=== PATIENT | female | born 1955 | race Caucasian/White ===

== ENCOUNTER 2020-02-17 12:36 | Emergency (ER) | payer MEDICARE, MEDICAID, SELFPAY ==
[2020-02-17] VITALS (9 sets, daily range): BP systolic 110–133; BP diastolic 61–92; PULSE 60–88; RESP 16–20; TEMP 36.8–37.1; O2SAT 96–99; BMI 31.5
--- NOTE | 2020-02-17 13:12 | XR_ITS ---
EXAMINATION: XR LUMBOSACRAL SPINE CLINICAL INFORMATION: Pain, fall COMPARISON: Radiographs lumbar spine 08/10/2017 TECHNIQUE: Three views of the lumbosacral spine. FINDINGS: There is normal lumbar segmentation with 5 nonrib-bearing lumbar vertebrae of normal height and normal lumbar lordosis. There is no lumbar vertebral compression, spondylolisthesis, destructive process. Again, there are degenerative disc changes greatest at L5-S1 but also involving L4-L5 and mild degenerative changes L1-L3. No erosive changes. The SI joints and visualized sacrum are unremarkable. IMPRESSION: 1. Multilevel degenerative disc changes, greatest L5-S1. 2. No vertebral compression or visible fracture. No spondylolisthesis.
--- NOTE | 2020-02-17 13:12 | ED.FALL ---
HPI - Fall General Chief Complaint: Fall Stated Complaint: FALL OOB T-1, KAREN KNEE/BACK PAIN Time Seen by Provider: 02/17/20 13:09 Source: patient and EMS Mode of arrival: EMS Limitations: language barrier History of Present Illness HPI Narrative: 64 y/o female with history of chronic back pain on chronic opiates, DM, COPD, anxiety, HTN, and AMIRT who presents with back pain after she fell out of bed this morning. She reports frequent falls at home and chronic dizziness. She also reports recent loose stools. No N/V, fever, chills or abdominal pain. She has a history of several back surgeries and is on high dose opiates at home. She is moving all extremities on arrival and reporting bilateral knee pain and back pain. Related Data Allergies Allergy/AdvReac Type Severity Reaction Status Date / Time aspirin [Aspirin] Allergy Intermediate STOMACH Unverified 01/16/20 16:22 UPSET Iodinated Contrast Media Allergy Unknown ITCHING Unverified 01/16/20 16:22 [IV Dye, Iodine Containing Contrast ] shellfish derived Allergy Unknown UNKNOWN Unverified 01/16/20 16:22 [SHELLFISH DERIVED] aspirin Allergy Unknown Uncoded 02/26/18 00:00 contrast dye Allergy Unknown Uncoded 02/26/18 00:00 SEAFOOD Allergy Unknown UNKNOWN Uncoded 01/16/20 16:22 Review of Systems Review of Systems: Constitutional: No Fever, No Chills ENT/Mouth: No sore throat, No Rhinorrhea, No Swallowing Difficulty Eyes: No Eye Pain, No Swelling, No Redness Cardiovascular: No Chest Pain, No SOB, No Orthopnea, No Edema Respiratory: No Cough, No Sputum, No Wheezing, No dyspnea Gastrointestinal: No Nausea, No Vomiting, No Diarrhea, No abdominal Pain, No Hematochezia, No Melena Genitourinary: No Dysuria, No Urinary Frequency, No Hematuria Musculoskeletal: + joint pain, + Myalgias Skin: No Skin Lesions, No rash Neuro: No Weakness, No Numbness, + Dizziness, No Headache Psych: No Anxiety/Panic, No Depression Heme/Lymph: No Bruising, No Lymphadenopathy Endocrine: No Polyuria, No Polydipsia PMFSH Past Medical History Medical History (Updated 02/17/20 @ 16:34 by ALYSHA Sims) Acute arthritis Asthma Chronic back pain Diabetes Hx of intestinal obstruction Surgical History (Updated 02/17/20 @ 12:51 by Nayla New) Hx of cholecystectomy Hx of hysterectomy Social History Social History Alcohol intake: never Smoking Status: Current every day smoker Use of substances other than those prescribed or required for medical reasons: No Advance Directives: No Advance Directives Information Provided: Yes Physical Exam Vital Signs: Vital Signs: Vital Signs Temp Pulse Resp BP Pulse Ox 02/17/20 15:57 62 131/73 96 02/17/20 14:37 66 131/83 99 02/17/20 14:34 70 127/73 02/17/20 14:33 67 131/83 02/17/20 14:31 60 117/65 02/17/20 12:45 98.7 F 75 20 118/92 H 97 Body Mass Index 31.5 Appearance: Alert. Oriented X3. Appears to be in pain Eyes: Pupils equal, round and reactive to light. ENT: Pharynx normal. Neck: Normal inspection. Neck supple. CVS: Normal heart rate and rhythm. Pulses normal. Respiratory: No respiratory distress. Breath sounds normal. Abdomen: Soft and nontender. +BS x4 Back: diffuse tenderness of lumbar area, right sided thoracic soft tissue tenderness. Skin: Skin warm and dry. Normal skin color. Normal skin turgor. No rashes. Extremities: No lower extremity edema. moves all 4 extremities, diffuse tenderness of bilateral lower extremities Neuro: Oriented X 3. No motor deficit. No sensory deficit. Course Course Course Narrative: 64 y/o on chronic high dose opiates for chronic pain who is presenting after she fell out of bed this morning. She reports low back pain and knee pain. She is moving all extremities and neuro exam is intact. XR showed no traumatic injury to her lumbar spine. She was given 50 mcg IV fentanyl with some improvement in her pain. Orthostatics were negative but she reported dizziness with standing which is baseline for her. Getting IVF now. She has a history of frequent falls, last was 2 weeks ago at home in the kitchen without LOC or injury. She was not evaluated at that time. She lives at home with her who does nothing to take care of me. Will get PT consult and Case management consult for possible placement in STR. Patient agrees with plan. MDM - Fall Differential Diagnosis Differential diagnosis: Likely syncope, compression fracture and concussion without loss of consciousness Medical Records Attestation: I reviewed the patient's medical records. Lab Data Attestation: I reviewed the patient's lab results. Result diagrams: 02/17/20 14:02 02/17/20 14:02 Labs: Lab Results 02/17/20 02/17/20 02/17/20 Range/Units 14:02 14:02 14:02 WBC 10.3 (4.8-10.8) X10*3/uL RBC 5.34 (4.20-5.50) X10*6/uL Hgb 14.4 (12.0-16.0) g/dl Hct 45.6 (37-47) % MCV 85.4 (80-98) fL MCH 27.0 (27.0-33.0) pg MCHC 31.6 (31.0-35.0) g/dl RDW 13.4 (11.0-16.0) % Plt Count 306 (160-400) X10*3/uL MPV 10.2 (9.4-12.3) fL Immature Gran % (Auto) 0.3 (0.0-0.4) % Neut % (Auto) 73.7 H (45-73) % Lymph % (Auto) 20.0 (20-40) % [place] % (Auto) 5.5 (2-11) % Eos % (Auto) 0.2 (0-4) % Baso % (Auto) 0.3 (0-2) % Lymph # (Auto) 2.1 (1.2-4.9) X10*3/uL [place] # (Auto) 0.6 (0.1-1.2) X10*3/uL Eos # (Auto) 0.0 (0.0-0.4) X10*3/uL Baso # (Auto) 0.0 (0.0-0.2) X10*3/uL Abs Immat Gran (auto) 0.03 (0.00-0.03) X10*3/uL Absolute Neuts (auto) 7.6 (2.0-8.3) X10*3/uL Absolute Nucleated RBC 0.000 (0.0-0.012) X10*3/uL Nucleated RBC % (auto) 0.0 (0.0-0.2) /100WBC Sodium 143 (135-145) mmol/L Potassium 3.9 (3.3-5.1) mmol/l Chloride 105 (96-108) mmol/L Carbon Dioxide 30 H (22-29) mmol/L Anion Gap 12 (12-20) BUN 6 L (9-16) mg/dL Creatinine 0.73 (0.5-1.4) mg/dL Estim Creat Clear Calc 66.6 Estimated GFR > 60 Random Glucose 92 (60-115) mg/dL Calcium 9.2 (8.4-10.2) mg/dL Total Bilirubin 0.4 (0.0-1.0) mg/dL Direct Bilirubin 0.2 (0.0-0.5) mg/dL AST 13 (5-31) U/L ALT 12 (0-31) U/L Alkaline Phosphatase 109 (39-117) U/L Total Protein 6.5 (6.5-8.0) g/dL Albumin 4.0 (3.5-5.0) g/dL Urine Color Urine Appearance Urine pH (5.0-8.0) Ur Specific [place] (1.005-1.025) Urine Protein (NEG-TRACE) MG/DL Urine Glucose (UA) (NEG) MG/DL Urine Ketones (NEG) MG/DL Urine Blood (NEG) Urine Nitrite (NEG) Ur Leukocyte Esterase (NEG) Urine Opiates Screen (Not Detect) Ur Barbiturates Screen (Not Detect) Ur Phencyclidine Scrn (Not Detect) Ur Amphetamines Screen (Not Detect) U Benzodiazepines Scrn (Not Detect) Urine Cocaine Screen (Not Detect) U Marijuana (THC) Screen (Not Detect) Ethyl Alcohol < 10 mg/dL 02/17/20 02/17/20 Range/Units 16:06 16:06 WBC (4.8-10.8) X10*3/uL RBC (4.20-5.50) X10*6/uL Hgb (12.0-16.0) g/dl Hct (37-47) % MCV (80-98) fL MCH (27.0-33.0) pg MCHC (31.0-35.0) g/dl RDW (11.0-16.0) % Plt Count (160-400) X10*3/uL MPV (9.4-12.3) fL Immature Gran % (Auto) (0.0-0.4) % Neut % (Auto) (45-73) % Lymph % (Auto) (20-40) % [place] % (Auto) (2-11) % Eos % (Auto) (0-4) % Baso % (Auto) (0-2) % Lymph # (Auto) (1.2-4.9) X10*3/uL [place] # (Auto) (0.1-1.2) X10*3/uL Eos # (Auto) (0.0-0.4) X10*3/uL Baso # (Auto) (0.0-0.2) X10*3/uL Abs Immat Gran (auto) (0.00-0.03) X10*3/uL Absolute Neuts (auto) (2.0-8.3) X10*3/uL Absolute Nucleated RBC (0.0-0.012) X10*3/uL Nucleated RBC % (auto) (0.0-0.2) /100WBC Sodium (135-145) mmol/L Potassium (3.3-5.1) mmol/l Chloride (96-108) mmol/L Carbon Dioxide (22-29) mmol/L Anion Gap (12-20) BUN (9-16) mg/dL Creatinine (0.5-1.4) mg/dL Estim Creat Clear Calc Estimated GFR Random Glucose (60-115) mg/dL Calcium (8.4-10.2) mg/dL Total Bilirubin (0.0-1.0) mg/dL Direct Bilirubin (0.0-0.5) mg/dL AST (5-31) U/L ALT (0-31) U/L Alkaline Phosphatase (39-117) U/L Total Protein (6.5-8.0) g/dL Albumin (3.5-5.0) g/dL Urine Color YELLOW Urine Appearance CLEAR Urine pH 7.0 (5.0-8.0) Ur Specific [place] 1.015 (1.005-1.025) Urine Protein NEG (NEG-TRACE) MG/DL Urine Glucose (UA) NEG (NEG) MG/DL Urine Ketones NEG (NEG) MG/DL Urine Blood NEG (NEG) Urine Nitrite NEG (NEG) Ur Leukocyte Esterase NEG (NEG) Urine Opiates Screen Not Detected (Not Detect) Ur Barbiturates Screen Not Detected (Not Detect) Ur Phencyclidine Scrn Not Detected (Not Detect) Ur Amphetamines Screen Not Detected (Not Detect) U Benzodiazepines Scrn POSITIVE H (Not Detect) Urine Cocaine Screen Not Detected (Not Detect) U Marijuana (THC) Screen Not Detected (Not Detect) Ethyl Alcohol mg/dL ECG Data Attestation: I personally reviewed and interpreted this ECG as follows: ECG interpretation date: 02/17/20 ECG interpretation time: 14:36 Interpretation: normal sinus rhythm, HR 62 bpm, avF with mild ST depression which is unchanged from October 2019. normal PA interval Discharge Plan Discharge Clinical Impression: Accidental fall from bed Qualifiers: Encounter type: initial encounter Qualified Code(s): W06.XXXA - Fall from bed, initial encounter Chronic low back pain Qualifiers: Back pain laterality: bilateral Sciatica presence: without sciatica Qualified Code(s): M54.5 - Low back pain Interventions: ED Discharge Assessment Last Done: 02/17/20 13:03
--- NOTE | 2020-02-17 13:13 | ECG_ITS ---
Test Reason : FALL Blood Pressure : / mmHG Vent. Rate : 062 BPM Atrial Rate : 062 BPM P-R Int : 140 ms QRS Dur : 080 ms QT Int : 438 ms P-R-T Axes : 073 025 010 degrees QTc Int : 444 ms Normal sinus rhythm RSR' or QR pattern in V1 suggests right ventricular conduction delay Nonspecific ST abnormality Inferior leads Abnormal ECG When compared with ECG of 12-NOV-2019 12:42, Nonspecific T wave abnormality is no longer Present Referred By: Anjana Fowler Electronically Signed By:JOHANNA SMART MD
[2020-02-17 14:06] LABS: MANUAL DIFF FLAG NO
[2020-02-17 14:09] LABS: Basophils Percent Auto 0.3 % (0-2); Eosinophils Percent Auto 0.2 % (0-4); Hematocrit 45.6 % (37-47); Hemoglobin 14.4 g/dl (12.0-16.0); Imm Gran Abs Auto 0.03 X10*3/uL (0.00-0.03); Imm Gran Pct Auto 0.3 % (0.0-0.4); Lymphocytes Absolute Auto 2.1 X10*3/uL (1.2-4.9); Mean Corpuscular HGB Conc 31.6 g/dl (31.0-35.0); Mean Corpuscular Volume 85.4 fL (80-98); Mean Platelet Volume 10.2 fL (9.4-12.3); Monocytes Absolute Auto 0.6 X10*3/uL (0.1-1.2); Monocytes Percent Auto 5.5 % (2-11); Neutrophils Absolute Auto 7.6 X10*3/uL (2.0-8.3); Neutrophils Percent Auto 73.7 % (45-73); Platelet Count 306 X10*3/uL (160-400); Red Blood Count 5.34 X10*6/uL (4.20-5.50); Red Cell Distribution Width 13.4 % (11.0-16.0); White Blood Count 10.3 X10*3/uL (4.8-10.8)
[2020-02-17 14:35] LABS: Alanine Aminotransferase 12 U/L (0-31); Alkaline Phosphatase 109 U/L (39-117); Anion Gap 12 (12-20); Aspartate Amino Transferase 13 U/L (5-31); Bilirubin Direct 0.2 mg/dL (0.0-0.5); Bilirubin Total 0.4 mg/dL (0.0-1.0); Blood Urea Nitrogen 6 mg/dL (9-16); Calcium 9.2 mg/dL (8.4-10.2); Carbon Dioxide 30 mmol/L (22-29); Chloride 105 mmol/L (96-108); Creatinine Clr Calc Pharmacy 66.6; Estimated Glomerular Filt Rate > 60; Glucose Random 92 mg/dL (60-115); Potassium 3.9 mmol/l (3.3-5.1); Sodium 143 mmol/L (135-145); Total Protein 6.5 g/dL (6.5-8.0)
[2020-02-17 14:40] LABS: Ethanol < 10 mg/dL
[2020-02-17] MEDS: 0.9 % Sodium Chloride 1,000 ML 999 ML IVCONT (14:40)
--- NOTE | 2020-02-17 14:40 | PC.NURSE ---
PT RESTING IN THE STRETCHER REPORTS ALERT AND ORIENTED, SKIN APPROPRIATE FOR ETHNICITY, RESPIRATIONS EVEN AND UNLABORED. PT DOES REPRORT FEELING DIZZY WHEN SANDING FOR THE ORTH VS AND REPORTS HAVING A HEADACHE AT THIS TIME
--- NOTE | 2020-02-17 15:47 | PC.NURSE ---
PT REPORTS PAIN IN THE LOWER BACK, AND BILATERALLY LEGS, BLANK ENCARNACION AWARE. PT IS WEARING A FENTLAYN PATCH ON HER RIGHT SHOULDER, BLANK ENCARNACION AWARE, VERBAL ORDER TO LEAVE IT ON
[2020-02-17] MEDS: fentaNYL citrate/PF 100 MCG/2 ML VIAL 50 MCG IVPUSH (15:55)
--- NOTE | 2020-02-17 16:07 | PC.NURSE ---
pt ambulated to the bathroom with steady gait
[2020-02-17 16:23] LABS: Glucose Urine UA NEG (NEG); Leukocyte Esterase Urine NEG (NEG); Nitrite Urine NEG (NEG); Specific Gravity - Urine 1.015 (1.005-1.025); Urine Blood NEG (NEG); Urine Ketones NEG (NEG); Urine Protein NEG (NEG-TRACE)
[2020-02-17 16:25] LABS: Appearance Urine CLEAR; Color Urine YELLOW
[2020-02-17 16:43] LABS: Amphetamine Screen Urine Not Detected (Not Detect); Barbiturates, Urine Not Detected (Not Detect); Benzodiazepines Screen Urine POSITIVE (Not Detect); Cannabinoid Screen Urine Not Detected (Not Detect); Cocaine Screen Urine Not Detected (Not Detect); Opiate Screen Urine Not Detected (Not Detect); Phencyclidine Screen Urine Not Detected (Not Detect)
--- NOTE | 2020-02-17 17:21 | PC.NURSE ---
PT RESTING IN THE STRETCHER WITH EYES SHUT, WHEN WOKEN UP REPORTS THAT SHE IS STILL HAVING PAIN IN BILATERAL LOWER EXTREMITIES AND HER CHRONIC LOWER BACK. PT IS AWARE THAT SHE IS SPENDING THE NIGHT IN THE ED FOR PT EVALUATION IN THE MORNING.
--- NOTE | 2020-02-17 18:34 | PC.NURSE ---
GIOVANNI RAPHAEL [phone]
--- NOTE | 2020-02-17 18:55 | PC.NURSE ---
report taken from thais hopper. pt sitting in bed eating dinner. pt plan to see pt/ot in the morning. pt in nad, call light within reach. neuro intact
--- NOTE | 2020-02-17 19:51 | PC.NURSE ---
pharmacy at bedside for med reconcile
--- NOTE | 2020-02-17 21:47 | PC.NURSE ---
pharmacy aware of patients night time medications not crossing over, working on issue hence delay in nighttime meds. pt aware with heat treat supervisor
[2020-02-17] MEDS: ALPRAZolam 0.5 MG TABLET 2 MG PO (22:10)
[2020-02-17] MEDS: Topiramate 25 MG TABLET PO (22:11)
--- NOTE | 2020-02-17 22:17 | PC.NURSE ---
pt took meds with no difficulty. pt came in er with fentanyl patch on. pt sleeping, in nad. ambulated to bathroom with 1 assist.
--- NOTE | 2020-02-18 00:03 | PC.NURSE ---
PT AMBULATED TO BATHROOM WITH 1 ASSIST. PT IN NAD AT THIS TIME.
[2020-02-18] MEDS: oxyCODONE HCl Immed Release 5 MG TABLET 7.5 MG PO ×2 (00:15→16:16)
[2020-02-18 00:16] VITALS: BP 135/79; PULSE 71; RESP 18; TEMP 37.1; O2SAT 96
[2020-02-18] MEDS: Budesonide 180 MCG AER.POW.BA 2 PUFF INHALE ×2 (00:16→08:17)
--- NOTE | 2020-02-18 00:19 | PC.NURSE ---
pt medicated with prn for pain. pt in nad, vitals wnl
--- NOTE | 2020-02-18 02:59 | PC.NURSE ---
pt ambulated to bathroom with limp. pt upset because we did not see her as fast as she wanted stated am i ever going to be seen today ? pt sent to obtain urine sample.
[2020-02-18 03:01] VITALS: BP 133/86; PULSE 89; RESP 18; TEMP 37.1; O2SAT 98
[2020-02-18] MEDS: Acetaminophen 325 MG TABLET PO (03:25)
[2020-02-18 07:31] LABS: Glucose, Whole Blood 118 mg/dL (60-115)
[2020-02-18] MEDS: FLUoxetine HCl 20 MG CAPSULE 40 MG PO (07:32)
[2020-02-18] MEDS: ALPRAZolam 0.5 MG TABLET 1 MG PO (07:32)
[2020-02-18 08:22] VITALS: BP 128/74; PULSE 74; RESP 16; TEMP 37; O2SAT 98
--- NOTE | 2020-02-18 09:15 | MHC.CM.ED ---
MET WITH PATIENT. SPOKE VIA AUTOMOTIVE ELECTRICIAN( [place] SPEAKING ONLY). PT UNDERSTANDS NEED FOR STR. REQUESTS [facility]. REFERRAL PLACED.
--- NOTE | 2020-02-18 09:29 | PC.NURSE ---
pt awake. worked with physical and occupational therapy. pt ambulated to bathroom accompanied by nurse, no issue with ambulation, used walked. waiting plan for dispo.
--- NOTE | 2020-02-18 10:18 | MHC.CM.ED ---
[facility] WILLING TO ACCEPT PT PENDING COVID NEG TEST. AWAITING TESTING. CHRISTIANO CHANG. BED AVAILABLE BETWEEN [phone].
[2020-02-18 11:20] VITALS: BP 133/64; PULSE 65; RESP 14; TEMP 37.1; O2SAT 97
[2020-02-18 11:49] LABS: SARS COV2 PCR INHOUSE NEGATIVE (Negative)
== END 2020-02-18 16:48 | disposition skilled nursing facility (03) ==
PROVIDERS: Physician Assistant; Emergency Provider Emergency Medicine; PCP Internal Medicine
DX: S39.92XA Unspecified injury of lower back, initial encounter (principal); M54.32 Sciatica, left side; M54.31 Sciatica, right side; M54.2 Cervicalgia; F11.10 Opioid abuse, uncomplicated; W06.XXXA Fall from bed, initial encounter; Y93.9 Activity, unspecified; Y92.003 Bedroom of unspecified non-institutional (private) residence as the place of occurrence of the external cause; Y99.9 Unspecified external cause status; Z71.6 Tobacco abuse counseling; Z79.899 Other long term (current) drug therapy
CPT/HCPCS: 36415; 72100; 80048; 80076; 80307; 80320; 81003; 82947; 85025; 87635; 93005; 96360; 97162; 97166; 99285; J3010

== ENCOUNTER 2020-05-22 16:32 | Emergency (ER) | payer MEDICARE, MEDICAID, SELFPAY ==
[2020-05-22 16:37] VITALS: BP 107/65; BP 117/63; PULSE 62; PULSE 70; RESP 18; TEMP 35.9; O2SAT 96; O2SAT 97; BMI 28.4
--- NOTE | 2020-05-22 17:09 | XR_ITS ---
EXAMINATION: XR CHEST CLINICAL INFORMATION: Cough COMPARISON: 11/12/2019 TECHNIQUE: Frontal view of the chest was obtained. FINDINGS: The patient is rotated to the right. The lungs are well expanded. There is no focal consolidation, edema, or effusion. No pneumothorax. The cardiomediastinal silhouette is within normal limits. No acute osseous abnormality. XR/XR chest 1V IMPRESSION: No acute pulmonary finding.
--- NOTE | 2020-05-22 17:09 | ECG_ITS ---
Test Reason : [id number] Blood Pressure : / mmHG Vent. Rate : 057 BPM Atrial Rate : 057 BPM P-R Int : 136 ms QRS Dur : 076 ms QT Int : 446 ms P-R-T Axes : 056 047 025 degrees QTc Int : 434 ms Sinus bradycardia Otherwise normal ECG When compared with ECG of 17-FEB-2020 14:22, No significant change was found Referred By: Diya Ng Electronically Signed By:CARIN SHEIKH
--- NOTE | 2020-05-22 17:10 | ED_ITS ---
HPI - General Adult General Chief complaint: Dyspnea Stated complaint: sob back pain Time Seen by Provider: 05/22/20 17:00 Source: patient, EMS and electroplating technician Mode of arrival: EMS Limitations: no limitations History of Present Illness HPI narrative: 64-year-old female presented by ambulance for 3 days of flu-like symptoms, patient describes generalized weakness, dizziness (unsteady), sore throat, body ache, coughing with greenish sputum. Patient also complaining of low back pain (patient with chronic low back pain). Patient declined recent exposure to sick contact. Related Data Home Medications Medication Instructions Recorded Confirmed alprazolam 1 mg PO QAM 02/17/20 02/17/20 alprazolam 2 mg PO BEDTIME 02/17/20 02/17/20 budesonide [Pulmicort Flexhaler] 2 inh PO BID 02/17/20 02/17/20 dicyclomine 10 mg PO TID PRN 02/17/20 02/17/20 ergocalciferol (vitamin D2) 1,250 mcg PO FR@1000 02/17/20 02/17/20 fentanyl 25 mcg TOPICAL Q3D 02/17/20 02/17/20 fluoxetine 40 mg PO QAM 02/17/20 02/17/20 insulin lispro [Humalog KwikPen 4 - 5 unit SUBCUT BIDAC 02/17/20 02/17/20 Insulin] oxycodone-acetaminophen 1 tab PO BID PRN 02/17/20 02/17/20 tiotropium bromide [Spiriva 2 puff INHALATION DAILY 02/17/20 02/17/20 Respimat] topiramate 1 tab PO BEDTIME 02/17/20 02/17/20 Allergies Allergy/AdvReac Type Severity Reaction Status Date / Time aspirin [Aspirin] Allergy Intermediate STOMACH Verified 05/22/20 16:41 UPSET Iodinated Contrast Media Allergy Unknown ITCHING Verified 05/22/20 16:41 [IV Dye, Iodine Containing Contrast ] shellfish derived Allergy Unknown UNKNOWN Verified 05/22/20 16:41 [SHELLFISH DERIVED] SEAFOOD Allergy Unknown UNKNOWN Uncoded 01/16/20 16:22 Review of Systems Review of Systems: All other systems are reviewed and are negative Constitutional: Reports as per HPI and Reports no additional constitutional complaints Eyes: Reports as per HPI and Reports no additional eye complaints Reports system reviewed and no additional complaints, except as documented Cardiovascular: Reports as per HPI and Reports no additional cardiovascular complaints Respiratory: Reports as per HPI and Reports no additional respiratory complaints Gastrointestinal: Reports as per HPI and Reports no additional gastrointestinal complaints Genitourinary: Reports no additional female genitourinary complaints Musculoskeletal: Reports no additional musculoskeletal complaints Skin/Breast: Reports system reviewed and no additional complaints, except as docu Psychiatric: Reports no additional psychiatric complaints Endocrine: Reports no additional endocrine complaints Hematologic/Lymphatic: Reports no additional hematologic/lymphatic complaints Allergic/Immunologic: Reports no additional allergic/immunologic complaints Reports system reviewed and no additional complaints, except as documented and Reports Abnormal speech present [facility] Past Medical History Medical History Acute arthritis Asthma Chronic back pain Diabetes Hx of intestinal obstruction Surgical History Hx of cholecystectomy Hx of hysterectomy Social History Social History Alcohol intake: never Smoking Status: Light tobacco smoker Use of substances other than those prescribed or required for medical reasons: No Advance Directives: No Advance Directives Information Provided: Yes Physical Exam Vital Signs: Vital Signs: Last Vital Signs Temp 7 F L 05/22/20 19:16 Pulse 68 05/22/20 19:16 Resp 16 05/22/20 19:16 BP 122/68 05/22/20 19:16 Pulse Ox 99 05/22/20 19:16 Body Mass Index 28.4 Vital signs have been reviewed as normal and appeared to be correct. Blood pressure normal. Heart rate normal. Respiration rate normal. Temperature normal. Oxygen saturation normal. Appearance: Alert. Oriented X3. No acute distress. Head: Normal external exam. Normocephalic. Atraumatic. No Tejeda signs noted. No raccoon eyes noted Eyes: PERRLA. EOMI. Conjunctiva and sclera normal. Eyelids normal. ENT: EAC normal. TM's Normal. Pharynx normal. Uvula midline. Moist mucous membranes. No trismus noted. No drooling noted. No muffled voice noted. Neck: Normal inspection. Neck supple. FROM. No adenopathy. Thyroid Normal. No meningeal signs. No neck mass noted. CVS: Normal heart rate and rhythm. Heart sound normal. No murmurs noted. Pulses normal throughout. Respiratory: No respiratory distress. Painless inspiration. Breath sounds normal. No wheezes/rales/rhonchi noted. Chest nontender. No accessory muscle usage noted or decreased air movement noted. Abdomen: Soft and nontender. Bowel sounds normal in all 4 quadrants. No distention noted. No organomegaly noted. No visible injury noted. Back: No CVA tenderness. Full range of motion noted. Skin: Skin warm and dry. Normal skin color. Normal skin turgor. No rashes/lesions/lacerations noted. Extremities: No lower extremity edema. Extremities exhibit normal range of motion. Extremities nontender. Neuro: Oriented X 3. No motor deficit. No sensory deficit. Reflexes normal. NIH Stroke Scale Internal: Initial- Upon Arrival Level of Consciousness: Alert Level of Consciousness Questions: Answers both questions correctly Level of Consciousness Commands: Performs both tasks correctly Best Gaze: Normal Visual: No visual loss Facial Palsy: Normal Motor Arm (Right): No drift Motor Arm (Left): No drift Motor Leg (Right): No drift Motor Leg (Left): No drift Limb Ataxia: Absent Sensory: Normal Best Language: No aphasia Dysarthia: Normal Extinction and Inattention: No abnormality Score: 0 Course Course Course Narrative: Assessment and plan. 64-year-old female presented with flu-like symptoms, cough, patient was tested negative for COVID-19, chest x-ray was unremarkable, patient had stable vital signs including O2 sat on room air of 99%, patient had a normal lung exam, patient felt better after received IV fluid hydration in the emergency department, patient ambulated to the bathroom with steady gait, patient has a normal neuro exam. Medical Decision Making Lab Data Result diagrams: 05/22/20 17:58 05/22/20 18:49 Labs: Lab Results 05/22/20 05/22/20 05/22/20 Range/Units 17:58 17:58 17:58 WBC 8.1 (4.8-10.8) X10*3/uL RBC 4.88 (4.20-5.50) X10*6/uL Hgb 13.3 (12.0-16.0) g/dl Hct 42.7 (37-47) % MCV 87.5 (80-98) fL MCH 27.3 (27.0-33.0) pg MCHC 31.1 (31.0-35.0) g/dl RDW 14.8 (11.0-16.0) % Plt Count 272 (160-400) X10*3/uL MPV 10.0 (9.4-12.3) fL Immature Gran % (Auto) 0.2 (0.0-0.4) % Neut % (Auto) 65.9 (45-73) % Lymph % (Auto) 27.3 (20-40) % [place] % (Auto) 5.7 (2-11) % Eos % (Auto) 0.4 (0-4) % Baso % (Auto) 0.5 (0-2) % Lymph # (Auto) 2.2 (1.2-4.9) X10*3/uL [place] # (Auto) 0.5 (0.1-1.2) X10*3/uL Eos # (Auto) 0.0 (0.0-0.4) X10*3/uL Baso # (Auto) 0.0 (0.0-0.2) X10*3/uL Abs Immat Gran (auto) 0.02 (0.00-0.03) X10*3/uL Absolute Neuts (auto) 5.3 (2.0-8.3) X10*3/uL Absolute Nucleated RBC 0.000 (0.0-0.012) X10*3/uL Nucleated RBC % (auto) 0.0 (0.0-0.2) /100WBC Sodium (135-145) mmol/L Potassium (3.3-5.1) mmol/l Chloride (96-108) mmol/L Carbon Dioxide (22-29) mmol/L Anion Gap (12-20) BUN (9-16) mg/dL Creatinine (0.5-1.4) mg/dL Estim Creat Clear Calc Estimated GFR Random Glucose (60-115) mg/dL Calcium (8.4-10.2) mg/dL Total Bilirubin (0.0-1.0) mg/dL Direct Bilirubin (0.0-0.5) mg/dL AST (5-31) U/L ALT (0-31) U/L Alkaline Phosphatase (39-117) U/L B-Natriuretic Peptide 96 (<100) pg/mL Total Protein (6.5-8.0) g/dL Albumin (3.5-5.0) g/dL Lipase (8-78) U/L COVID-19 (PAIGE) Negative (Negative) COVID-19 Clin Com See Note 05/22/20 Range/Units 18:49 WBC (4.8-10.8) X10*3/uL RBC (4.20-5.50) X10*6/uL Hgb (12.0-16.0) g/dl Hct (37-47) % MCV (80-98) fL MCH (27.0-33.0) pg MCHC (31.0-35.0) g/dl RDW (11.0-16.0) % Plt Count (160-400) X10*3/uL MPV (9.4-12.3) fL Immature Gran % (Auto) (0.0-0.4) % Neut % (Auto) (45-73) % Lymph % (Auto) (20-40) % [place] % (Auto) (2-11) % Eos % (Auto) (0-4) % Baso % (Auto) (0-2) % Lymph # (Auto) (1.2-4.9) X10*3/uL [place] # (Auto) (0.1-1.2) X10*3/uL Eos # (Auto) (0.0-0.4) X10*3/uL Baso # (Auto) (0.0-0.2) X10*3/uL Abs Immat Gran (auto) (0.00-0.03) X10*3/uL Absolute Neuts (auto) (2.0-8.3) X10*3/uL Absolute Nucleated RBC (0.0-0.012) X10*3/uL Nucleated RBC % (auto) (0.0-0.2) /100WBC Sodium 141 (135-145) mmol/L Potassium 4.2 (3.3-5.1) mmol/l Chloride 108 (96-108) mmol/L Carbon Dioxide 28 (22-29) mmol/L Anion Gap 9 L (12-20) BUN 6 L (9-16) mg/dL Creatinine 0.63 (0.5-1.4) mg/dL Estim Creat Clear Calc 73.2 Estimated GFR > 60 Random Glucose 76 (60-115) mg/dL Calcium 8.4 D (8.4-10.2) mg/dL Total Bilirubin 0.5 (0.0-1.0) mg/dL Direct Bilirubin < 0.2 (0.0-0.5) mg/dL AST 10 (5-31) U/L ALT 7 (0-31) U/L Alkaline Phosphatase 85 D (39-117) U/L B-Natriuretic Peptide (<100) pg/mL Total Protein 5.8 L (6.5-8.0) g/dL Albumin 3.7 (3.5-5.0) g/dL Lipase 9 (8-78) U/L COVID-19 (PAIGE) (Negative) COVID-19 Clin Com Imaging Data Chest x-ray: Radiologist's impression: No acute pulmonary finding. ECG Data Interpretation: Sinus bradycardia at 57 beats per minute, normal axis deviation, normal interval, no ST-T changes. Discharge Plan Discharge Clinical Impression: Generalized weakness Patient Disposition: Home, Self-Care Instructions: Weakness (ED) Prescriptions: No Action fluoxetine 40 mg capsule 40 mg PO QAM RF: 0 topiramate 25 mg tablet 1 tab PO BEDTIME RF: 0 alprazolam 2 mg tablet 1 mg PO QAM RF: 0 ergocalciferol (vitamin D2) 1,250 mcg (50,000 unit) capsule 1,250 mcg PO FR@1000 RF: 0 fentanyl 25 mcg/hr patch 72 hour 25 mcg topical Q3D RF: 0 oxycodone-acetaminophen 7.5-325 mg tablet 1 tab PO BID PRN (Reason: Pain) RF: 0 dicyclomine 10 mg capsule 10 mg PO TID PRN (Reason: Abdominal Pain) RF: 0 insulin lispro [Humalog KwikPen Insulin] 100 unit/mL insulin pen 4 - 5 unit subcut BIDAC RF: 0 Pulmicort Flexhaler 180 mcg/actuation aerosol powdr breath activated 2 inh PO BID RF: 0 Spiriva Respimat 2.5 mcg/actuation mist 2 puff inhalation DAILY RF: 0 alprazolam 2 mg Tablet 2 mg PO BEDTIME RF: 0 Referrals: Physician,Unknown [Primary Care Provider] - 2 days
[2020-05-22] MEDS: 0.9 % Sodium Chloride 1,000 ML 999 ML IVCONT (17:58)
[2020-05-22 18:06] LABS: MANUAL DIFF FLAG NO
[2020-05-22 18:07] LABS: Basophils Percent Auto 0.5 % (0-2); Eosinophils Percent Auto 0.4 % (0-4); Hematocrit 42.7 % (37-47); Hemoglobin 13.3 g/dl (12.0-16.0); Imm Gran Abs Auto 0.02 X10*3/uL (0.00-0.03); Imm Gran Pct Auto 0.2 % (0.0-0.4); Lymphocytes Absolute Auto 2.2 X10*3/uL (1.2-4.9); Lymphocytes Percent Auto 27.3 % (20-40); Mean Corpuscular HGB Conc 31.1 g/dl (31.0-35.0); Mean Corpuscular Hemoglobin 27.3 pg (27.0-33.0); Mean Corpuscular Volume 87.5 fL (80-98); Monocytes Absolute Auto 0.5 X10*3/uL (0.1-1.2); Monocytes Percent Auto 5.7 % (2-11); Neutrophils Absolute Auto 5.3 X10*3/uL (2.0-8.3); Neutrophils Percent Auto 65.9 % (45-73); Platelet Count 272 X10*3/uL (160-400); Red Blood Count 4.88 X10*6/uL (4.20-5.50); Red Cell Distribution Width 14.8 % (11.0-16.0); White Blood Count 8.1 X10*3/uL (4.8-10.8)
[2020-05-22 18:34] LABS: COVID-19 Test Negative (Negative)
[2020-05-22 18:40] LABS: B Type Natriuretic Peptide 96 pg/mL (<100)
[2020-05-22 19:16] VITALS: BP 122/68; PULSE 68; RESP 16; TEMP -13.8; TEMP 7; O2SAT 99
[2020-05-22 19:25] LABS: Alanine Aminotransferase 7 U/L (0-31); Albumin Level 3.7 g/dL (3.5-5.0); Alkaline Phosphatase 85 U/L (39-117); Anion Gap 9 (12-20); Aspartate Amino Transferase 10 U/L (5-31); Bilirubin Direct < 0.2 mg/dL (0.0-0.5); Bilirubin Total 0.5 mg/dL (0.0-1.0); Blood Urea Nitrogen 6 mg/dL (9-16); Calcium 8.4 mg/dL (8.4-10.2); Carbon Dioxide 28 mmol/L (22-29); Chloride 108 mmol/L (96-108); Creatinine Clr Calc Pharmacy 73.2; Estimated Glomerular Filt Rate > 60; Glucose Random 76 mg/dL (60-115); Lipase 9 U/L (8-78); Potassium 4.2 mmol/l (3.3-5.1); Sodium 141 mmol/L (135-145); Total Protein 5.8 g/dL (6.5-8.0)
== END 2020-05-22 20:30 | disposition home or self-care (01) ==
PROVIDERS: Emergency Provider Emergency Medicine
DX: R53.1 Weakness (principal); Z20.822 Contact with and (suspected) exposure to COVID-19; E11.9 Type 2 diabetes mellitus without complications; J45.909 Unspecified asthma, uncomplicated; F17.210 Nicotine dependence, cigarettes, uncomplicated; Z79.4 Long term (current) use of insulin; Z79.51 Long term (current) use of inhaled steroids
CPT/HCPCS: 36415; 71045; 80048; 80076; 83690; 83880; 85025; 87635; 93005; 96360; 99284

== ENCOUNTER 2020-06-13 12:57 | Emergency (ER) | payer MEDICARE, MEDICAID, SELFPAY ==
[2020-06-13] VITALS (9 sets, daily range): BP systolic 94–130; BP diastolic 55–79; PULSE 49–105; RESP 15–18; TEMP 36.5–37.2; O2SAT 94–100; BMI 26.8
--- NOTE | ~2020-06-13 | CT_ITS ---
EXAMINATION: CT ABDOMEN AND PELVIS WITH CONTRAST CLINICAL INFORMATION: abdominal pain, N/V/D, fever COMPARISON: 01/13/2020 TECHNIQUE: Multidetector volumetric imaging was performed from the superior aspect of the liver through the pubic symphysis following administration of 100 mL Omnipaque 350 intravenous contrast. Sagittal and coronal reformatted images were obtained on the technologist workstation.. This CT examination was performed using dose optimization techniques as appropriate, variously including the following: *Automated exposure control *Adjustment of mA and/or kV according to patient size (this includes techniques or standardized protocols for targeted exams where dose is matched to indication/reason for exam; i.e. extremities or head) *Use of iterative reconstruction technique DLP: 381 mGy-cm FINDINGS: LUNG BASES: Minimal dependent artery is more likely due to atelectasis. LIVER, GALLBLADDER, AND BILIARY TREE: The liver is normal in size, shape, and attenuation. No focal hepatic lesion or intrahepatic biliary ductal dilatation is present. Gallbladder surgically absent and the common bile duct measures up to 1.0 cm in diameter likely related to the postcholecystectomy status. Appears similar to the prior CT scan. PANCREAS: Unremarkable. SPLEEN: Unremarkable. ADRENAL GLANDS: Unremarkable. KIDNEYS AND URETERS: Low-attenuation cyst in the medial upper pole of the right kidney. Otherwise the kidneys are normal in size, shape, and attenuation. No hydronephrosis, hydroureter, or calculi seen. No perinephric stranding. BLADDER: Unremarkable. GASTROINTESTINAL TRACT: Few scattered colonic diverticula are seen within the decompressed colon. No focal colonic wall thickening or pericolonic inflammatory changes to suggest diverticulitis. The appendix is not visualized and may be surgically absent. Visualized small bowel is unremarkable. ABDOMINAL WALL: No significant hernia is appreciated. LYMPHOVASCULAR STRUCTURES: No lymphadenopathy. The aorta is unremarkable. PELVIC VISCERA: Presumably surgically absent OSSEOUS STRUCTURES: Multilevel degenerative changes in the spine CT/CT abdomen pelvis w con IMPRESSION: Chronic appearing changes but no acute intra-abdominal process when compared to the 01/13/2020 study.
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
[2020-06-13] MEDS: 0.9 % Sodium Chloride 1,000 ML 999 ML IVCONT (14:18)
[2020-06-13] MEDS: Acetaminophen 325 MG TABLET 975 MG PO (14:20)
[2020-06-13 14:25] LABS: MANUAL DIFF FLAG NO
[2020-06-13 14:26] LABS: Basophils Absolute Auto 0.1 X10*3/uL (0.0-0.2); Basophils Percent Auto 0.5 % (0-2); Eosinophils Absolute Auto 0.1 X10*3/uL (0.0-0.4); Eosinophils Percent Auto 0.5 % (0-4); Hemoglobin 13.3 g/dl (12.0-16.0); Imm Gran Abs Auto 0.03 X10*3/uL (0.00-0.03); Imm Gran Pct Auto 0.3 % (0.0-0.4); Lymphocytes Absolute Auto 2.8 X10*3/uL (1.2-4.9); Lymphocytes Percent Auto 25.5 % (20-40); Mean Corpuscular HGB Conc 31.7 g/dl (31.0-35.0); Mean Corpuscular Hemoglobin 27.5 pg (27.0-33.0); Mean Corpuscular Volume 86.8 fL (80-98); Mean Platelet Volume 9.9 fL (9.4-12.3); Monocytes Absolute Auto 0.7 X10*3/uL (0.1-1.2); Monocytes Percent Auto 6.4 % (2-11); Neutrophils Absolute Auto 7.3 X10*3/uL (2.0-8.3); Neutrophils Percent Auto 66.8 % (45-73); Platelet Count 258 X10*3/uL (160-400); Red Blood Count 4.84 X10*6/uL (4.20-5.50); Red Cell Distribution Width 14.3 % (11.0-16.0); White Blood Count 10.9 X10*3/uL (4.8-10.8)
--- NOTE | 2020-06-13 14:29 | ED.GENADULT ---
HPI - General Adult General Chief complaint: General Medical Stated complaint: ABD PAIN,LIGHTHEADED,TEMP 101,N/V/D X'S 1WEEK Time Seen by Provider: 06/13/20 13:44 Source: patient Mode of arrival: ambulatory Limitations: no limitations History of Present Illness HPI narrative: 64 y/o female iwth history of anxiety, COPD, diabetes, HTN, chronic back pain on chronic opiates, AMRIT who presents with abdominal pain, headache, body aches, sore throat, nausea, diarrhea, cough and SOB for the last 4-5 days. She reports the pain in her body is severe and diffuse. She has been coughing up yellow phelgm. She has been lightheaded and dizzy at times over the last 1 week. No known exposure to COVID-19 She had a similar presentation to the ER 3 weeks ago with negative workup. She reports being in a halfway recently where she was cared for and medications were administered. She has no family at home to care for her. MD complaint: flu-like symptoms Onset (ago): day(s) (5) Location: head, mouth, back, abdomen, left, right and lower extremity Severity: severe Severity scale (1-10): 10 Quality: aching, sharp and constant Pain Consistency: constant Relieving factors: none Exacerbating factors: movement Associated symptoms: cough, fever/chills, headaches, loss of appetite, malaise, nausea/vomiting, shortness of breath and weakness Treatments prior to arrival: none Related Data Home Medications Medication Instructions Recorded Confirmed alprazolam 1 mg PO QAM 02/17/20 02/17/20 alprazolam 2 mg PO BEDTIME 02/17/20 02/17/20 budesonide [Pulmicort Flexhaler] 2 inh PO BID 02/17/20 02/17/20 dicyclomine 10 mg PO TID PRN 02/17/20 02/17/20 ergocalciferol (vitamin D2) 1,250 mcg PO FR@1000 02/17/20 02/17/20 fentanyl 25 mcg TOPICAL Q3D 02/17/20 02/17/20 fluoxetine 40 mg PO QAM 02/17/20 02/17/20 insulin lispro [Humalog KwikPen 4 - 5 unit SUBCUT BIDAC 02/17/20 02/17/20 Insulin] oxycodone-acetaminophen 1 tab PO BID PRN 02/17/20 02/17/20 tiotropium bromide [Spiriva 2 puff INHALATION DAILY 02/17/20 02/17/20 Respimat] topiramate 1 tab PO BEDTIME 02/17/20 02/17/20 Previous Rx's Medication Instructions Recorded azithromycin [Zithromax Z-Jaret] See Rx Instructions .ROUTE 06/13/20 .COMPLEX #6 tab dicyclomine 20 mg PO TID #10 tab 06/13/20 prednisone 40 mg PO DAILY 5 Days #10 tab 06/13/20 Allergies Allergy/AdvReac Type Severity Reaction Status Date / Time aspirin [Aspirin] Allergy Intermediate STOMACH Verified 05/22/20 16:41 UPSET Iodinated Contrast Media Allergy Unknown ITCHING Verified 05/22/20 16:41 [IV Dye, Iodine Containing Contrast ] shellfish derived Allergy Unknown UNKNOWN Verified 05/22/20 16:41 [SHELLFISH DERIVED] SEAFOOD Allergy Unknown UNKNOWN Uncoded 01/16/20 16:22 Review of Systems Review of Systems: Constitutional: No Fever, + Chills ENT/Mouth: + sore throat, No Rhinorrhea, No Swallowing Difficulty Eyes: No Eye Pain, No Swelling, No Redness Cardiovascular: No Chest Pain, + SOB, No Orthopnea, No Edema Respiratory: + Cough, + Sputum, No Wheezing, + dyspnea Gastrointestinal: + Nausea, No Vomiting, No Diarrhea, + abdominal Pain, No Hematochezia, No Melena Genitourinary: No Dysuria, No Urinary Frequency, No Hematuria Musculoskeletal: No joint pain, + Myalgias Skin: No Skin Lesions, No rash Neuro: No Weakness, No Numbness, + Dizziness, + Headache Psych: + Anxiety/Panic, No Depression Heme/Lymph: No Bruising, No Lymphadenopathy PMFSH Past Medical History Medical History Acute arthritis Asthma Chronic back pain Diabetes Hx of intestinal obstruction Surgical History Hx of cholecystectomy Hx of hysterectomy Social History Social History Alcohol intake: never Smoking Status: Current every day smoker Use of substances other than those prescribed or required for medical reasons: No Advance Directives: No Advance Directives Information Provided: No Physical Exam Vital Signs: Vital Signs: Last Vital Signs Temp 98.0 F 06/13/20 18:00 Pulse 55 06/13/20 18:00 Resp 15 06/13/20 18:00 BP 122/68 06/13/20 18:00 Pulse Ox 96 06/13/20 18:00 Body Mass Index 26.8 Appearance: Alert. Oriented X3. Appears uncomfortable. Eyes: Pupils equal, round and reactive to light. ENT: Pharynx normal. Mild posterior pharyngeal erythema Neck: Normal inspection. Neck supple. CVS: Normal heart rate and rhythm. Pulses normal. Respiratory: No respiratory distress. Breath sounds normal. Abdomen: Obese, Soft and tender throughout. +BS x4 Skin: Skin warm and dry. Normal skin color. Normal skin turgor. No rashes. Extremities: No lower extremity edema. Tender throughout entire LE, soft tissues and joints. normal inspection, normal ROM, no erythema or warmth. Neuro: Oriented X 3. No motor deficit. No sensory deficit. Anxious Course Course Course Narrative: 64 y/o female presenting with diffus body aches and pains, abdominal pain, nausea, productive cough, SOB and sore throat. Hemodynamically stable with SpO2 97% on arrival. Temp 99. Will get COVID workup, CXR, labs. May need CT abdomen for further evaluation. Tylenol and IVF ordered for now. Reevaluation(s) Reevaluation #1: No improvement in pain - reports low back (chronic) and diffuse abdominal pain. Lab workup is unremarkable so far. She is sleeping between cared. Will get CT scan for further evaluation. UA is pending as well. Reevaluation #2: UA negative and CT scan is negative for acute fingings. Plan was to treat for acute bronchitis given productive cough and intermittent SOB. She states she feels unsafe going home and would like to go back to a SNF. Will get a PT evaluation and Case Management consult. Will monitor closely in the ER. Of note she ambulated with a slow but steady gait to the bathroom earlier today. Med rec consult placed as well. Medical Decision Making Lab Data Result diagrams: 06/13/20 14:15 06/13/20 14:15 Labs: Lab Results 06/13/20 06/13/20 06/13/20 Range/Units 14:15 14:15 14:15 WBC 10.9 H (4.8-10.8) X10*3/uL RBC 4.84 (4.20-5.50) X10*6/uL Hgb 13.3 (12.0-16.0) g/dl Hct 42.0 (37-47) % MCV 86.8 (80-98) fL MCH 27.5 (27.0-33.0) pg MCHC 31.7 (31.0-35.0) g/dl RDW 14.3 (11.0-16.0) % Plt Count 258 (160-400) X10*3/uL MPV 9.9 (9.4-12.3) fL Immature Gran % (Auto) 0.3 (0.0-0.4) % Neut % (Auto) 66.8 (45-73) % Lymph % (Auto) 25.5 (20-40) % Troup % (Auto) 6.4 (2-11) % Eos % (Auto) 0.5 (0-4) % Baso % (Auto) 0.5 (0-2) % Lymph # (Auto) 2.8 (1.2-4.9) X10*3/uL Troup # (Auto) 0.7 (0.1-1.2) X10*3/uL Eos # (Auto) 0.1 (0.0-0.4) X10*3/uL Baso # (Auto) 0.1 (0.0-0.2) X10*3/uL Abs Immat Gran (auto) 0.03 (0.00-0.03) X10*3/uL Absolute Neuts (auto) 7.3 (2.0-8.3) X10*3/uL Absolute Nucleated RBC 0.000 (0.0-0.012) X10*3/uL Nucleated RBC % (auto) 0.0 (0.0-0.2) /100WBC Hold Blue Top SEE NOTE Sodium 138 (135-145) mmol/L Potassium 3.3 (3.3-5.1) mmol/L Chloride 104 (96-108) mmol/L Carbon Dioxide 28 (22-29) mmol/L Anion Gap 9 L (12-20) BUN 9 (9-16) mg/dL Creatinine 0.73 (0.5-1.4) mg/dL Estim Creat Clear Calc 61.4 Estimated GFR > 60 Random Glucose 79 (60-115) mg/dL Calcium 8.6 (8.4-10.2) mg/dL Magnesium (1.6-2.6) mg/dL Total Bilirubin 0.9 (0.0-1.0) mg/dL AST 14 (5-31) U/L ALT 8 (0-31) U/L Alkaline Phosphatase 92 (39-117) U/L B-Natriuretic Peptide (<100) pg/mL Total Protein 6.5 (6.5-8.0) g/dL Albumin 4.0 (3.5-5.0) g/dL Lipase (8-78) U/L Procalcitonin ng/mL Urine Color Urine Appearance Urine pH (5.0-8.0) Ur Specific [facility] (1.005-1.025) Urine Protein (NEG-TRACE) MG/DL Urine Glucose (UA) (NEG) MG/DL Urine Ketones (NEG) MG/DL Urine Blood (NEG) Urine Nitrite (NEG) Ur Leukocyte Esterase (NEG) Coronavirus (PCR) (Negative) Influenza Type A (PCR) (Negative) Influenza Type B (PCR) (Negative) RSV RNA Qual (PCR) (Negative) 06/13/20 06/13/20 06/13/20 Range/Units 14:15 14:15 14:15 WBC (4.8-10.8) X10*3/uL RBC (4.20-5.50) X10*6/uL Hgb (12.0-16.0) g/dl Hct (37-47) % MCV (80-98) fL MCH (27.0-33.0) pg MCHC (31.0-35.0) g/dl RDW (11.0-16.0) % Plt Count (160-400) X10*3/uL MPV (9.4-12.3) fL Immature Gran % (Auto) (0.0-0.4) % Neut % (Auto) (45-73) % Lymph % (Auto) (20-40) % Troup % (Auto) (2-11) % Eos % (Auto) (0-4) % Baso % (Auto) (0-2) % Lymph # (Auto) (1.2-4.9) X10*3/uL Troup # (Auto) (0.1-1.2) X10*3/uL Eos # (Auto) (0.0-0.4) X10*3/uL Baso # (Auto) (0.0-0.2) X10*3/uL Abs Immat Gran (auto) (0.00-0.03) X10*3/uL Absolute Neuts (auto) (2.0-8.3) X10*3/uL Absolute Nucleated RBC (0.0-0.012) X10*3/uL Nucleated RBC % (auto) (0.0-0.2) /100WBC Hold Blue Top Sodium (135-145) mmol/L Potassium (3.3-5.1) mmol/L Chloride (96-108) mmol/L Carbon Dioxide (22-29) mmol/L Anion Gap (12-20) BUN (9-16) mg/dL Creatinine (0.5-1.4) mg/dL Estim Creat Clear Calc Estimated GFR Random Glucose (60-115) mg/dL Calcium (8.4-10.2) mg/dL Magnesium 2.3 (1.6-2.6) mg/dL Total Bilirubin (0.0-1.0) mg/dL AST (5-31) U/L ALT (0-31) U/L Alkaline Phosphatase (39-117) U/L B-Natriuretic Peptide (<100) pg/mL Total Protein (6.5-8.0) g/dL Albumin (3.5-5.0) g/dL Lipase 8 (8-78) U/L Procalcitonin 0.02 ng/mL Urine Color Urine Appearance Urine pH (5.0-8.0) Ur Specific [facility] (1.005-1.025) Urine Protein (NEG-TRACE) MG/DL Urine Glucose (UA) (NEG) MG/DL Urine Ketones (NEG) MG/DL Urine Blood (NEG) Urine Nitrite (NEG) Ur Leukocyte Esterase (NEG) Coronavirus (PCR) NEGATIVE (Negative) Influenza Type A (PCR) NEGATIVE (Negative) Influenza Type B (PCR) NEGATIVE (Negative) RSV RNA Qual (PCR) NEGATIVE (Negative) 06/13/20 06/13/20 Range/Units 14:15 17:08 WBC (4.8-10.8) X10*3/uL RBC (4.20-5.50) X10*6/uL Hgb (12.0-16.0) g/dl Hct (37-47) % MCV (80-98) fL MCH (27.0-33.0) pg MCHC (31.0-35.0) g/dl RDW (11.0-16.0) % Plt Count (160-400) X10*3/uL MPV (9.4-12.3) fL Immature Gran % (Auto) (0.0-0.4) % Neut % (Auto) (45-73) % Lymph % (Auto) (20-40) % Troup % (Auto) (2-11) % Eos % (Auto) (0-4) % Baso % (Auto) (0-2) % Lymph # (Auto) (1.2-4.9) X10*3/uL Troup # (Auto) (0.1-1.2) X10*3/uL Eos # (Auto) (0.0-0.4) X10*3/uL Baso # (Auto) (0.0-0.2) X10*3/uL Abs Immat Gran (auto) (0.00-0.03) X10*3/uL Absolute Neuts (auto) (2.0-8.3) X10*3/uL Absolute Nucleated RBC (0.0-0.012) X10*3/uL Nucleated RBC % (auto) (0.0-0.2) /100WBC Hold Blue Top Sodium (135-145) mmol/L Potassium (3.3-5.1) mmol/L Chloride (96-108) mmol/L Carbon Dioxide (22-29) mmol/L Anion Gap (12-20) BUN (9-16) mg/dL Creatinine (0.5-1.4) mg/dL Estim Creat Clear Calc Estimated GFR Random Glucose (60-115) mg/dL Calcium (8.4-10.2) mg/dL Magnesium (1.6-2.6) mg/dL Total Bilirubin (0.0-1.0) mg/dL AST (5-31) U/L ALT (0-31) U/L Alkaline Phosphatase (39-117) U/L B-Natriuretic Peptide 24 (<100) pg/mL Total Protein (6.5-8.0) g/dL Albumin (3.5-5.0) g/dL Lipase (8-78) U/L Procalcitonin ng/mL Urine Color YELLOW Urine Appearance CLEAR Urine pH 6.0 (5.0-8.0) Ur Specific [facility] 1.015 (1.005-1.025) Urine Protein NEG (NEG-TRACE) MG/DL Urine Glucose (UA) NEG (NEG) MG/DL Urine Ketones NEG (NEG) MG/DL Urine Blood NEG (NEG) Urine Nitrite NEG (NEG) Ur Leukocyte Esterase NEG (NEG) Coronavirus (PCR) (Negative) Influenza Type A (PCR) (Negative) Influenza Type B (PCR) (Negative) RSV RNA Qual (PCR) (Negative) Critical Care Time Critical Care Time Critical Care Time: No Discharge Plan Discharge Clinical Impression: Acute bronchitis, Chronic back pain, Abdominal pain Instructions: Acute Bronchitis (ED), Chronic Back Pain (DC) Additional Instructions: Your workup today was unremarkable. Your CT scan did not show any acute findings. Take the prescribed medications for your lungs. Recommend Imodium for diarrhea as needed. Rest and stay hydrated. Follow up with your doctor on Monday. If your symptoms worsen, come back to the ER for further evaluation. Prescriptions: New azithromycin [Zithromax Z-Jaret] 250 mg tablet See Rx Instructions .ROUTE .COMPLEX Qty: 6 RF: 0 prednisone 20 mg tablet 40 mg PO DAILY 5 Days Qty: 10 RF: 0 dicyclomine 20 mg tablet 20 mg PO TID Qty: 10 RF: 0 No Action fluoxetine 40 mg capsule 40 mg PO QAM RF: 0 topiramate 25 mg tablet 1 tab PO BEDTIME RF: 0 alprazolam 2 mg tablet 1 mg PO QAM RF: 0 ergocalciferol (vitamin D2) 1,250 mcg (50,000 unit) capsule 1,250 mcg PO FR@1000 RF: 0 fentanyl 25 mcg/hr patch 72 hour 25 mcg topical Q3D RF: 0 oxycodone-acetaminophen 7.5-325 mg tablet 1 tab PO BID PRN (Reason: Pain) RF: 0 dicyclomine 10 mg capsule 10 mg PO TID PRN (Reason: Abdominal Pain) RF: 0 insulin lispro [Humalog KwikPen Insulin] 100 unit/mL insulin pen 4 - 5 unit subcut BIDAC RF: 0 Pulmicort Flexhaler 180 mcg/actuation aerosol powdr breath activated 2 inh PO BID RF: 0 Spiriva Respimat 2.5 mcg/actuation mist 2 puff inhalation DAILY RF: 0 alprazolam 2 mg Tablet 2 mg PO BEDTIME RF: 0
[2020-06-13 14:51] LABS: Lipase 8 U/L (8-78); Magnesium 2.3 mg/dL (1.6-2.6)
[2020-06-13 14:52] LABS: Alanine Aminotransferase 8 U/L (0-31); Alkaline Phosphatase 92 U/L (39-117); Anion Gap 9 (12-20); Aspartate Amino Transferase 14 U/L (5-31); Bilirubin Total 0.9 mg/dL (0.0-1.0); Blood Urea Nitrogen 9 mg/dL (9-16); Calcium 8.6 mg/dL (8.4-10.2); Carbon Dioxide 28 mmol/L (22-29); Chloride 104 mmol/L (96-108); Creatinine Clr Calc Pharmacy 61.4; Estimated Glomerular Filt Rate > 60; Glucose Random 79 mg/dL (60-115); Potassium 3.3 mmol/L (3.3-5.1); Sodium 138 mmol/L (135-145); Total Protein 6.5 g/dL (6.5-8.0)
[2020-06-13 15:08] LABS: Procalcitonin 0.02 ng/mL
[2020-06-13 15:29] LABS: B Type Natriuretic Peptide 24 pg/mL (<100)
[2020-06-13 15:58] LABS: Influenza A PCR NEGATIVE (Negative); Influenza B PCR NEGATIVE (Negative); Resp Syncy Virus RNA Qual PCR NEGATIVE (Negative); SARS COV2 PCR INHOUSE NEGATIVE (Negative)
--- NOTE | 2020-06-13 16:04 | PC.NURSE ---
patient sleeping, woke to verbal stimulus, patient a&ox3, vitals obtained-pt bp soft at 94/55, pt awaiting for covid results, will continue to monitor.
--- NOTE | 2020-06-13 16:35 | PC.NURSE ---
pt to radiology
[2020-06-13 17:15] LABS: Appearance Urine CLEAR; Color Urine YELLOW; Glucose Urine UA NEG (NEG); Leukocyte Esterase Urine NEG (NEG); Nitrite Urine NEG (NEG); Specific Gravity - Urine 1.015 (1.005-1.025); Urine Blood NEG (NEG); Urine Ketones NEG (NEG); Urine Protein NEG (NEG-TRACE)
--- NOTE | 2020-06-13 18:15 | PC.NURSE ---
patient a&ox3, nsr on security monitor, patients vitals are stable, will continue to monitor.
[2020-06-13] MEDS: iohexoL 350 MG/ML 100 ML INFUS..BTL IV (18:42)
--- NOTE | 2020-06-13 20:11 | PC.NURSE ---
this nurse went to discharge the patient with the display associate, the patient stated she was unable to go home as she was unable to care for herself, patient stated that she wanted to go to a nursing facility. spoke with the provider who was making the patient case management with lori mejia. this nurse also re-questioned the patient about her safety at home and she states that she is not in an abusive situation and is not in fear. patient was told that she would be here until placement was found which could be after the weekend, patient stated she has no way to get home and nobody to care for her. patient stated she recently discharged from a nursing facility back to home.
--- NOTE | 2020-06-13 21:07 | PC.NURSE ---
PATIENT HAD HAM SANDWICH AND ORANGE JUICE .
--- NOTE | 2020-06-13 21:53 | PC.NURSE ---
called [facility] to review patients medications, they will come to the ed when they finish with previous patient
--- NOTE | 2020-06-13 22:17 | PC.NURSE ---
went into room with [facility], patient was unable to remember her medications and does not have a list with her.
--- NOTE | 2020-06-13 23:30 | PC.NURSE ---
ASSUMED CARE OF PT. PT RESTING IN STRETCHER IN NAD. PT AWAITING FOR CASE MGT IN AM.
[2020-06-14 02:00] VITALS: BP 105/68; PULSE 55; RESP 16; TEMP 36.5; O2SAT 95
--- NOTE | 2020-06-14 02:30 | PC.NURSE ---
NO CHANGE IN PT'S CONDITION. PT UP TO RESTROOM WITH ASSISTANCE. PT AWAITING FOR CASE MGT. PT DENIES ANY PAIN/COMPLAINTS AT THIS TIME. WILL CONTINUE TO MONITOR PT.
[2020-06-14 04:00] VITALS: RESP 18
--- NOTE | 2020-06-14 04:50 | PC.NURSE ---
PT RESTING QUIETLY IN STRETCHER, WAKES TO VOICE AND IN NAD. RESPIRATIONS EASY, N/L. SKIN W/D. WILL CONTINUE TO MONITOR PT.
[2020-06-14 06:00] VITALS: BP 125/67; PULSE 58; RESP 18; TEMP 36.7; O2SAT 97
--- NOTE | 2020-06-14 06:12 | PC.NURSE ---
PT HAS FENTANYL PATCH 25 MCG ON LEFT UPPER ARM WITHOUT A DATE.
[2020-06-14 06:18] VITALS: BP 129/68; PULSE 74; RESP 23; TEMP 36.8; O2SAT 97
--- NOTE | 2020-06-14 06:19 | PC.NURSE ---
PT RESTING QUIETYLY IN STRETCHER IN NAD. PT ON 2L NC WITH PO 97%, REPEAT TEMP 98.2 ORAL. PT DENIES ANY COMPLAINTS OR PAIN. PT REQUESTING BLANKET. WILL CONTINUE TO KATHIA PT.
[2020-06-14 07:10] VITALS: BP 110/62; PULSE 52; RESP 16; TEMP 36.5; O2SAT 94
--- NOTE | 2020-06-14 07:11 | PC.NURSE ---
report taken form vish ALVARADO. pt sleeping upon assessment, woke easily to voice. vitals updated. plan is for PT/case management eval. PT not here today. patient reports low back pain, falls back asleep when RN out of room. will monitor needs.
[2020-06-14 09:32] LABS: Glucose, Whole Blood 91 mg/dL (60-115)
[2020-06-14] MEDS: FLUoxetine HCl 20 MG CAPSULE 40 MG PO (09:35)
[2020-06-14] MEDS: fentaNYL 25 MCG PATCH.TD72 TRANSDERMA (09:35)
--- NOTE | 2020-06-14 09:35 | PC.NURSE ---
med list reviewed by Vivian ENCARNACION. pt fentynal patch form left arm removed and new patch applied to right arm.
[2020-06-14 15:23] VITALS: BP 104/62; PULSE 55; RESP 16; TEMP 36.4; O2SAT 93
--- NOTE | 2020-06-14 15:24 | PC.NURSE ---
Pt resting in bed in no apparent distress. VSS. POC obtained. Snack offered.
[2020-06-14 15:31] LABS: Glucose, Whole Blood 94 mg/dL (60-115)
[2020-06-14 18:09] LABS: Glucose, Whole Blood 100 mg/dL (60-115)
--- NOTE | 2020-06-14 20:59 | PC.NURSE ---
PATIENT SLEEPING. PLAN TO MEDICATE SCHEDULED. WILL CONTINUE TO MONITOR.
[2020-06-14] MEDS: ALPRAZolam 0.5 MG TABLET 2 MG PO (21:27)
[2020-06-14] MEDS: Topiramate 25 MG TABLET PO (21:27)
[2020-06-14] MEDS: Budesonide 180 MCG AER.POW.BA 2 PUFF INHALE (21:31)
[2020-06-14 21:36] LABS: Glucose, Whole Blood 102 mg/dL (60-115)
[2020-06-15 07:02] LABS: Glucose, Whole Blood 90 mg/dL (60-115)
--- NOTE | 2020-06-15 07:30 | PC.NURSE ---
pt awake and resting comfortably, reports no complains, and has a good night. pt set up with her breakfast everett
[2020-06-15] MEDS: Budesonide 180 MCG AER.POW.BA 2 PUFF INHALE (08:00)
[2020-06-15 08:04] VITALS: PULSE 64; O2SAT 94
[2020-06-15] MEDS: FLUoxetine HCl 20 MG CAPSULE 40 MG PO (08:21)
[2020-06-15 08:25] VITALS: BP 121/68; PULSE 53; RESP 18; O2SAT 95
--- NOTE | 2020-06-15 09:21 | PC.NURSE ---
physical therapy at bedside
[2020-06-15 11:52] LABS: Glucose, Whole Blood 101 mg/dL (60-115)
--- NOTE | 2020-06-15 12:05 | PC.NURSE ---
pt comes out of her room requesting to speak with someone, both Sondra and this rn spoke to the pt. pt states that she did not get breakfast today and did she did not get dinner last night. pt explained that she did receive breakfast this morning. pt is requesting to go home now, she also sates that she never reported not wanting to go home over the weekend. pt just was talking on the phone with her few min prior to this event.
== END 2020-06-15 13:34 | disposition home or self-care (01) ==
PROVIDERS: Physician Assistant; Emergency Provider Emergency Medicine Emergency Medical Services
DX: J20.9 Acute bronchitis, unspecified (principal); Z20.822 Contact with and (suspected) exposure to COVID-19; G89.29 Other chronic pain; M54.5 Low back pain; R10.9 Unspecified abdominal pain; E11.9 Type 2 diabetes mellitus without complications; I10 Essential (primary) hypertension; Z79.891 Long term (current) use of opiate analgesic
CPT/HCPCS: 0241U; 36415; 74177; 80053; 81003; 82947; 83690; 83735; 83880; 84145; 85025; 87071; 87880; 94640; 96360; 97162; 99284; 99285; Q9967

== ENCOUNTER 2020-07-20 07:25 | Emergency (ER) | payer MEDICARE, MEDICAID, SELFPAY ==
--- NOTE | ~2020-07-20 | CT_ITS ---
EXAMINATION: CT ABDOMEN AND PELVIS WITHOUT CONTRAST CLINICAL INFORMATION: Low back pain down pain COMPARISON: CT abdomen and pelvis 06/13/2020 TECHNIQUE: Multidetector volumetric imaging was performed from the superior aspect of the liver through the pubic symphysis. Sagittal and coronal reformatted images were obtained on the technologist's workstation. This CT examination was performed using dose optimization techniques as appropriate, variously including the following: *Automated exposure control *Adjustment of mA and/or kV according to patient size (this includes techniques or standardized protocols for targeted exams where dose is matched to indication/reason for exam; i.e. extremities or head) *Use of iterative reconstruction technique DLP: 416 mGy-cm FINDINGS: LUNG BASES: There is a right basilar atelectasis LIVER, GALLBLADDER, AND BILIARY TREE: The liver is normal in size, shape, and attenuation. No focal hepatic lesion or biliary ductal dilatation is present. The gallbladder has been surgically removed. The CBD is prominent measuring 1.1 cm. PANCREAS: Unremarkable. SPLEEN: Unremarkable. ADRENAL GLANDS: Unremarkable. KIDNEYS AND URETERS: The kidneys are normal in size, shape, and attenuation. No hydronephrosis, hydroureter, or calculi seen. No perinephric stranding. There is a 1.4 cm and 1.3 cm partially exophytic lesion with posterior wall calcification suggesting a complex cyst. BLADDER: Unremarkable. GASTROINTESTINAL TRACT: There is scattered stool and gas seen in the right colon. There is submucosal fatty deposition within the terminal ileum, cecum and proximal ascending colon, a nonspecific finding. No pericolic fat stranding. The small bowel loops are normal caliber. Appendix is not seen well. ABDOMINAL WALL: No significant hernia is appreciated. LYMPH NODES: Normal. VASCULAR: Unremarkable. PELVIC VISCERA: The uterus is atrophic or surgically removed. There are a few phleboliths in the pelvis. No free air or free fluid seen. OSSEOUS STRUCTURES: There are degenerative disc changes L3-L4, L4-L5 and L5/S1 disc levels with vacuum disc phenomena and ventral and posterior spondylosis. There is moderate endplate sclerosis L3-L4 disc level. CT/CT abdomen pelvis wo con IMPRESSION: Degenerative disc changes with vacuum disc phenomena and spondylosis L3-L4, L4-L5 L5-S1 disc levels. There is moderate endplate sclerosis at the L1 3-4 disc level. Submucosal fat deposition and terminal ileum, cecum and proximal ascending colon, nonspecific but can be seen with chronic inflammatory process. Cholecystectomy.
[2020-07-20 07:28] VITALS: BP 108/60; BP 120/72; PULSE 69; PULSE 82; RESP 16; TEMP 37.2; O2SAT 100; O2SAT 98; BMI 26.9
[2020-07-20 07:55] LABS: Glucose, Whole Blood 116 mg/dL (60-115)
--- NOTE | 2020-07-20 07:57 | ED_ITS ---
HPI - Fall General Chief Complaint: Fall Stated Complaint: FALL W/BACK PAIN Time Seen by Provider: 07/20/20 07:48 Source: patient and translator interpreter Mode of arrival: ambulatory Limitations: no limitations History of Present Illness HPI Narrative: 65 years old female history of anxiety, COPD, diabetes, hypertension, chronic back pain, multiple stomach surgeries with chronic abdominal pain, patient on chronic opiates for pain control, patient sustained mechanical fall few weeks ago ever since she has been having severe back pain and severe abdominal pain. Patient describes abdominal pain/back pain started 10 days ago, constant, localized to the lower back and generalized abdominal pain, with no radiation, pain was described as severe 10/10, associated with nausea but no vomiting or diarrhea or fever, movement or foods can make the pain worse nothing make it better, patient described the pain as chronic pain. Patient had CT scan of the abdomen and pelvis done about 5 weeks ago which was unremarkable except for postsurgical change. Related Data Home Medications Medication Instructions Recorded Confirmed alprazolam 2 mg PO BEDTIME 02/17/20 06/13/20 budesonide [Pulmicort Flexhaler] 2 inh PO BID 02/17/20 06/13/20 dicyclomine 10 mg PO TID PRN 02/17/20 06/14/20 ergocalciferol (vitamin D2) 1,250 mcg PO FR@1000 02/17/20 06/13/20 fentanyl 25 mcg TOPICAL Q3D 02/17/20 06/13/20 fluoxetine 40 mg PO QAM 02/17/20 06/13/20 oxycodone-acetaminophen 1 tab PO BID-TID PRN 02/17/20 06/14/20 tiotropium bromide [Spiriva 2 puff INHALATION DAILY 02/17/20 06/13/20 Respimat] topiramate 25 mg PO BEDTIME 02/17/20 06/14/20 tiotropium bromide [Spiriva 2 puff INHALATION DAILY 06/13/20 06/13/20 Respimat] clotrimazole 1 appl TOPICAL BEDTIME 06/14/20 06/14/20 docusate sodium 100 mg PO BEDTIME PRN 06/14/20 06/14/20 insulin lispro [Humalog KwikPen 2 - 8 unit SUBCUT TID 06/14/20 06/14/20 Insulin] Previous Rx's Medication Instructions Recorded prednisone 40 mg PO DAILY 5 Days #10 tab 06/13/20 Allergies Allergy/AdvReac Type Severity Reaction Status Date / Time aspirin [Aspirin] Allergy Intermediate STOMACH Verified 05/22/20 16:41 UPSET Iodinated Contrast Media Allergy Unknown ITCHING Verified 05/22/20 16:41 [IV Dye, Iodine Containing Contrast ] shellfish derived Allergy Unknown UNKNOWN Verified 05/22/20 16:41 [SHELLFISH DERIVED] SEAFOOD Allergy Unknown UNKNOWN Uncoded 01/16/20 16:22 Review of Systems Review of Systems: All other systems are reviewed and are negative Constitutional: Reports as per HPI and Reports no additional constitutional complaints Eyes: Reports as per HPI and Reports no additional eye complaints Reports system reviewed and no additional complaints, except as documented Cardiovascular: Reports as per HPI and Reports no additional cardiovascular complaints Respiratory: Reports as per HPI and Reports no additional respiratory complaints Gastrointestinal: Reports as per HPI and Reports no additional gastrointestinal complaints Genitourinary: Reports no additional female genitourinary complaints Musculoskeletal: Reports no additional musculoskeletal complaints Skin/Breast: Reports system reviewed and no additional complaints, except as docu Psychiatric: Reports no additional psychiatric complaints Endocrine: Reports no additional endocrine complaints Hematologic/Lymphatic: Reports no additional hematologic/lymphatic complaints Allergic/Immunologic: Reports no additional allergic/immunologic complaints Reports system reviewed and no additional complaints, except as documented and Reports Abnormal speech present [facility] Past Medical History Medical History Acute arthritis Asthma Chronic back pain Diabetes Hx of intestinal obstruction Surgical History Hx of cholecystectomy Hx of hysterectomy Social History Social History Alcohol intake: never Smoking Status: Current every day smoker Smoked in Last 30 Days: Yes Use of substances other than those prescribed or required for medical reasons: No Advance Directives: No Advance Directives Information Provided: No Physical Exam Vital Signs: Vital Signs: Last Vital Signs Temp 98.9 F 07/20/20 07:28 Pulse 60 07/20/20 09:16 Resp 14 07/20/20 09:16 BP 134/71 07/20/20 09:16 Pulse Ox 99 07/20/20 09:16 Body Mass Index 26.9 Vital signs have been reviewed as appeared to be correct. Blood pressure normal. Heart rate normal. Respiration rate normal. Temperature normal. Oxygen saturation normal. Appearance: Alert. Oriented X3. No acute distress. Head: Normal external exam. Normocephalic. Atraumatic. No Tejeda signs noted. No raccoon eyes noted Eyes: PERRLA. EOMI. Conjunctiva and sclera normal. Eyelids normal. ENT: TM's Normal. Pharynx normal. Uvula midline. Moist mucous membranes. No trismus noted. No drooling noted. No muffled voice noted. Neck: Normal inspection. Neck supple. FROM. No adenopathy. Thyroid Normal. No meningeal signs. No neck mass noted. CVS: Normal heart rate and rhythm. Heart sound normal. No murmurs noted. Pulses normal throughout. Respiratory: No respiratory distress. Painless inspiration. Breath sounds normal. No wheezes/rales/rhonchi noted. Chest nontender. No accessory muscle usage noted or decreased air movement noted. Abdomen: Voluntary guarding, diffuse tenderness, no rebound tenderness. Bowel sounds normal in all 4 quadrants. No distention noted. No organomegaly noted. No visible injury noted. Back: No CVA tenderness. Full range of motion noted. Skin: Skin warm and dry. Normal skin color. Normal skin turgor. No rashes/lesions/lacerations noted. Extremities: No lower extremity edema. Extremities exhibit normal range of motion. Extremities nontender. Neuro: Oriented X 3. No motor deficit. No sensory deficit. Reflexes normal. Course Course Course Narrative: Assessment and plan. 65-year-old female with history of chronic back pain/chronic abdominal pain presented today with abdominal pain, labs/physical exam/CT of the abdomen pelvis is not suggestive for acute pathology aggravating the chronic patient's pain. Patient on chronic fentanyl patch for chronic pain control. Will discharge the patient home and follow up with her PCP recommended pain management clinic referral. Reevaluation(s) Reevaluation #1: Physician observation started at 11:00 . Patient placed in physician observation because the patient needed more time for medication to work and to see PT/case management for evaluation and the need for placement patient's vital sign were stable, patient is alert and oriented , neuro exam unchanged, unremarkable rest of physical exam. Time: 10:59 Reevaluation #2: Patient was seen today for chronic back pain with chronic abdominal pain, unremarkable workup, patient was requesting placement for chronic pain management, patient will be going to [facility], just waiting for the COVID testing the patient should be able to be transported. Physician observation is ended at 30 Time: 15:31 - Fall Lab Data Attestation: I reviewed the patient's lab results. Result diagrams: 07/20/20 08:23 07/20/20 08:24 Labs: Lab Results 07/20/20 07/20/20 07/20/20 Range/Units 07:50 08:23 08:24 WBC 9.0 (4.8-10.8) X10*3/uL RBC 4.95 (4.20-5.50) X10*6/uL Hgb 13.7 (12.0-16.0) g/dl Hct 43.0 (37-47) % MCV 86.9 (80-98) fL MCH 27.7 (27.0-33.0) pg MCHC 31.9 (31.0-35.0) g/dl RDW 14.0 (11.0-16.0) % Plt Count 261 (160-400) X10*3/uL MPV 10.3 (9.4-12.3) fL Immature Gran % (Auto) 0.3 (0.0-0.4) % Neut % (Auto) 52.8 (45-73) % Lymph % (Auto) 39.1 (20-40) % [place] % (Auto) 6.1 (2-11) % Eos % (Auto) 1.1 (0-4) % Baso % (Auto) 0.6 (0-2) % Lymph # (Auto) 3.5 (1.2-4.9) X10*3/uL [place] # (Auto) 0.6 (0.1-1.2) X10*3/uL Eos # (Auto) 0.1 (0.0-0.4) X10*3/uL Baso # (Auto) 0.1 (0.0-0.2) X10*3/uL Abs Immat Gran (auto) 0.03 (0.00-0.03) X10*3/uL Absolute Neuts (auto) 4.8 (2.0-8.3) X10*3/uL Absolute Nucleated RBC 0.000 (0.0-0.012) X10*3/uL Nucleated RBC % (auto) 0.0 (0.0-0.2) /100WBC Sodium 141 (135-145) mmol/L Potassium 3.5 (3.3-5.1) mmol/L Chloride 104 (96-108) mmol/L Carbon Dioxide 29 (22-29) mmol/L Anion Gap 12 (12-20) BUN 9 (9-16) mg/dL Creatinine 0.73 (0.5-1.4) mg/dL Estim Creat Clear Calc 60.7 Estimated GFR > 60 POC Glucose 116 H (60-115) mg/dL Random Glucose 89 (60-115) mg/dL Calcium 8.8 (8.4-10.2) mg/dL Total Bilirubin 0.4 (0.0-1.0) mg/dL Direct Bilirubin 0.2 (0.0-0.5) mg/dL AST 13 (5-31) U/L ALT 8 (0-31) U/L Alkaline Phosphatase 94 (39-117) U/L Total Protein 6.2 L (6.5-8.0) g/dL Albumin 3.9 (3.5-5.0) g/dL Lipase 11 (8-78) U/L Urine Color Urine Appearance Urine pH (5.0-8.0) Ur Specific [place] (1.005-1.025) Urine Protein (NEG-TRACE) MG/DL Urine Glucose (UA) (NEG) MG/DL Urine Ketones (NEG) MG/DL Urine Blood (NEG) Urine Nitrite (NEG) Ur Leukocyte Esterase (NEG) 07/20/20 Range/Units 10:45 WBC (4.8-10.8) X10*3/uL RBC (4.20-5.50) X10*6/uL Hgb (12.0-16.0) g/dl Hct (37-47) % MCV (80-98) fL MCH (27.0-33.0) pg MCHC (31.0-35.0) g/dl RDW (11.0-16.0) % Plt Count (160-400) X10*3/uL MPV (9.4-12.3) fL Immature Gran % (Auto) (0.0-0.4) % Neut % (Auto) (45-73) % Lymph % (Auto) (20-40) % [place] % (Auto) (2-11) % Eos % (Auto) (0-4) % Baso % (Auto) (0-2) % Lymph # (Auto) (1.2-4.9) X10*3/uL [place] # (Auto) (0.1-1.2) X10*3/uL Eos # (Auto) (0.0-0.4) X10*3/uL Baso # (Auto) (0.0-0.2) X10*3/uL Abs Immat Gran (auto) (0.00-0.03) X10*3/uL Absolute Neuts (auto) (2.0-8.3) X10*3/uL Absolute Nucleated RBC (0.0-0.012) X10*3/uL Nucleated RBC % (auto) (0.0-0.2) /100WBC Sodium (135-145) mmol/L Potassium (3.3-5.1) mmol/L Chloride (96-108) mmol/L Carbon Dioxide (22-29) mmol/L Anion Gap (12-20) BUN (9-16) mg/dL Creatinine (0.5-1.4) mg/dL Estim Creat Clear Calc Estimated GFR POC Glucose (60-115) mg/dL Random Glucose (60-115) mg/dL Calcium (8.4-10.2) mg/dL Total Bilirubin (0.0-1.0) mg/dL Direct Bilirubin (0.0-0.5) mg/dL AST (5-31) U/L ALT (0-31) U/L Alkaline Phosphatase (39-117) U/L Total Protein (6.5-8.0) g/dL Albumin (3.5-5.0) g/dL Lipase (8-78) U/L Urine Color YELLOW Urine Appearance CLEAR Urine pH 6.0 (5.0-8.0) Ur Specific [place] 1.015 (1.005-1.025) Urine Protein NEG (NEG-TRACE) MG/DL Urine Glucose (UA) NEG (NEG) MG/DL Urine Ketones NEG (NEG) MG/DL Urine Blood NEG (NEG) Urine Nitrite NEG (NEG) Ur Leukocyte Esterase NEG (NEG) Imaging Data CT scan - abdomen: Radiologist's impression: Degenerative disc changes with vacuum disc phenomena and spondylosis L3-L4, L4-L5 L5-S1 disc levels. There is moderate endplate sclerosis at the L1 3-4 disc level. Submucosal fat deposition and terminal ileum, cecum and proximal ascending colon, nonspecific but can be seen with chronic inflammatory process. Cholecystectomy. Discharge Plan Discharge Clinical Impression: Abdominal pain Qualifiers: Abdominal location: unspecified location Qualified Code(s): R10.9 - Unspecified abdominal pain Back pain Qualifiers: Back pain location: low back pain Chronicity: chronic Back pain laterality: u nspecified Sciatica presence: without sciatica Qualified Code(s): M54.5 - Low back pain Patient Disposition: Xfer SNF Instructions: Chronic Pain (ED) Additional Instructions: Discus with your primary doctor referral to Pain Management Clinic as an outpatient. Prescriptions: No Action fluoxetine 40 mg capsule 40 mg PO QAM RF: 0 topiramate 25 mg tablet 25 mg PO BEDTIME RF: 0 ergocalciferol (vitamin D2) 1,250 mcg (50,000 unit) capsule 1,250 mcg PO FR@1000 RF: 0 fentanyl 25 mcg/hr patch 72 hour 25 mcg topical Q3D RF: 0 oxycodone-acetaminophen 7.5-325 mg tablet 1 tab PO BID-TID PRN (Reason: Pain) RF: 0 dicyclomine 10 mg capsule 10 mg PO TID PRN (Reason: Abdominal Pain) RF: 0 Pulmicort Flexhaler 180 mcg/actuation aerosol powdr breath activated 2 inh PO BID RF: 0 Spiriva Respimat 2.5 mcg/actuation mist 2 puff inhalation DAILY RF: 0 alprazolam 2 mg Tablet 2 mg PO BEDTIME RF: 0 prednisone 20 mg tablet 40 mg PO DAILY 5 Days Qty: 10 RF: 0 Spiriva Respimat 2.5 mcg/actuation mist 2 puff inhalation DAILY RF: 0 clotrimazole 1 % cream 1 appl topical BEDTIME RF: 0 insulin lispro [Humalog KwikPen Insulin] 100 unit/mL insulin pen 2 - 8 unit subcut TID RF: 0 docusate sodium 100 mg capsule 100 mg PO BEDTIME PRN (Reason: Constipation) RF: 0 Referrals: Aye Sosa MD [Primary Care Provider] - 2 days
[2020-07-20] MEDS: 0.9 % Sodium Chloride 1,000 ML 999 ML IVCONT (08:27)
[2020-07-20 08:32] LABS: MANUAL DIFF FLAG NO
[2020-07-20 08:34] LABS: Basophils Absolute Auto 0.1 X10*3/uL (0.0-0.2); Basophils Percent Auto 0.6 % (0-2); Eosinophils Absolute Auto 0.1 X10*3/uL (0.0-0.4); Eosinophils Percent Auto 1.1 % (0-4); Hemoglobin 13.7 g/dl (12.0-16.0); Imm Gran Abs Auto 0.03 X10*3/uL (0.00-0.03); Imm Gran Pct Auto 0.3 % (0.0-0.4); Lymphocytes Absolute Auto 3.5 X10*3/uL (1.2-4.9); Lymphocytes Percent Auto 39.1 % (20-40); Mean Corpuscular HGB Conc 31.9 g/dl (31.0-35.0); Mean Corpuscular Hemoglobin 27.7 pg (27.0-33.0); Mean Corpuscular Volume 86.9 fL (80-98); Mean Platelet Volume 10.3 fL (9.4-12.3); Monocytes Absolute Auto 0.6 X10*3/uL (0.1-1.2); Monocytes Percent Auto 6.1 % (2-11); Neutrophils Absolute Auto 4.8 X10*3/uL (2.0-8.3); Neutrophils Percent Auto 52.8 % (45-73); Platelet Count 261 X10*3/uL (160-400); Red Blood Count 4.95 X10*6/uL (4.20-5.50)
[2020-07-20 08:45] VITALS: BP 126/72; PULSE 58; RESP 16; O2SAT 98
[2020-07-20] MEDS: ondansetron HCL 4 MG/2 ML VIAL IVPUSH (08:48)
[2020-07-20 08:51] VITALS: RESP 16
[2020-07-20] MEDS: Morphine Sulfate 2 MG/ML CARTRIDGE 1 MG IVPUSH (08:51)
[2020-07-20 09:14] LABS: Alanine Aminotransferase 8 U/L (0-31); Albumin Level 3.9 g/dL (3.5-5.0); Alkaline Phosphatase 94 U/L (39-117); Anion Gap 12 (12-20); Aspartate Amino Transferase 13 U/L (5-31); Bilirubin Direct 0.2 mg/dL (0.0-0.5); Bilirubin Total 0.4 mg/dL (0.0-1.0); Blood Urea Nitrogen 9 mg/dL (9-16); Calcium 8.8 mg/dL (8.4-10.2); Carbon Dioxide 29 mmol/L (22-29); Chloride 104 mmol/L (96-108); Creatinine Clr Calc Pharmacy 60.7; Estimated Glomerular Filt Rate > 60; Glucose Random 89 mg/dL (60-115); Lipase 11 U/L (8-78); Potassium 3.5 mmol/L (3.3-5.1); Sodium 141 mmol/L (135-145); Total Protein 6.2 g/dL (6.5-8.0)
[2020-07-20 09:16] VITALS: BP 134/71; PULSE 60; RESP 14; O2SAT 99
[2020-07-20 11:16] LABS: Glucose Urine UA NEG (NEG); Leukocyte Esterase Urine NEG (NEG); Nitrite Urine NEG (NEG); Specific Gravity - Urine 1.015 (1.005-1.025); Urine Blood NEG (NEG); Urine Ketones NEG (NEG); Urine Protein NEG (NEG-TRACE)
[2020-07-20 11:20] LABS: Color Urine YELLOW
[2020-07-20 11:21] LABS: Appearance Urine CLEAR
[2020-07-20 15:37] LABS: COVID-19 Test Negative (Negative)
[2020-07-20 15:56] VITALS: BP 108/68; PULSE 68; RESP 16; TEMP 37; O2SAT 95
--- NOTE | 2020-07-20 16:53 | MHC.CM.ED ---
CM met with patient via clerk general. Pt Mongolian speaking only. Lives with who cooks and provides help and transportation. Pt uses a walker. Has an elevator in her apartment. Has hx of chronic back/abd pain and uses a fentanyl patch. PT is recommending posssible LTC in the future. Pt has been accepted at [facility]. Pt agreeable. Transportation booked via ambulance at 6-6:30. RN aware. CM to follow for d/c needs.
--- NOTE | 2020-07-21 09:26 | PC.NURSE ---
alisha diggs 07/20/2020 pt ambulated into hospital for back pain 5 days ago from fall, at 1238 this RN witnessed patient roll off stretcher to floor, Dr Ng aware
== END 2020-07-20 18:23 | disposition skilled nursing facility (03) ==
PROVIDERS: Emergency Provider Emergency Medicine; PCP Internal Medicine
DX: G89.29 Other chronic pain (principal); M54.5 Low back pain; R10.84 Generalized abdominal pain; Z20.822 Contact with and (suspected) exposure to COVID-19; E11.9 Type 2 diabetes mellitus without complications; I10 Essential (primary) hypertension; J44.9 Chronic obstructive pulmonary disease, unspecified; F17.200 Nicotine dependence, unspecified, uncomplicated; Z91.81 History of falling; Z79.4 Long term (current) use of insulin; Z79.899 Other long term (current) drug therapy
CPT/HCPCS: 36415; 74176; 80048; 80076; 81003; 82947; 83690; 85025; 87635; 96361; 96374; 96375; 97162; 99284; 99285; J2270; J2405

== ENCOUNTER 2020-08-18 14:44 | Emergency (ER) | payer MEDICARE, MEDICAID, SELFPAY ==
--- NOTE | ~2020-08-18 | CT_ITS ---
EXAMINATION: CT ABDOMEN AND PELVIS WITHOUT CONTRAST CLINICAL INFORMATION: Nausea vomiting history of small bowel obstruction. COMPARISON: X-ray the abdomen performed earlier same day. CT scan the abdomen and pelvis most recent June 2020. TECHNIQUE: Multidetector volumetric imaging was performed from the superior aspect of the liver through the pubic symphysis. Sagittal and coronal reformatted images were obtained on the technologist's workstation. This CT examination was performed using dose optimization techniques as appropriate, variously including the following: *Automated exposure control *Adjustment of mA and/or kV according to patient size (this includes techniques or standardized protocols for targeted exams where dose is matched to indication/reason for exam; i.e. extremities or head) *Use of iterative reconstruction technique DLP: 458 mGy-cm FINDINGS: LUNG BASES: Linear opacity in the lingula compatible scarring similar to prior. LIVER, GALLBLADDER, AND BILIARY TREE: The liver is normal in size, shape, and attenuation. No focal hepatic lesion or biliary ductal dilatation is present. Status post cholecystectomy. PANCREAS: Unremarkable. SPLEEN: Unremarkable. ADRENAL GLANDS: Unremarkable. KIDNEYS AND URETERS: The kidneys are normal in size, shape, and attenuation. No hydronephrosis, hydroureter, or calculi seen. No perinephric stranding. BLADDER: Unremarkable. GASTROINTESTINAL TRACT: Appendix not visualized. Bowel and stomach unremarkable ABDOMINAL WALL: No significant hernia is appreciated. LYMPH NODES: Normal. VASCULAR: Mild calcific atherosclerotic disease PELVIC VISCERA: Unremarkable. OSSEOUS STRUCTURES: Multilevel spondylosis of lumbar sacral spine stable. CT/CT abdomen pelvis wo con IMPRESSION: No acute abnormality. Stable chronic changes
--- NOTE | ~2020-08-18 | XR_ITS ---
EXAMINATION: XR CHEST CLINICAL INFORMATION: Cough COMPARISON: Radiographs abdomen 08/18/2020, chest radiographs 05/22/2020, 11/12/2019; CT abdomen 07/20/2020. TECHNIQUE: 2 views of the chest were obtained. FINDINGS: There is no lobar or segmental airspace consolidation or effusion. Tapering at the cardiophrenic angles is consistent with areolar tissue on CT. There is disc atelectasis right medial base. The heart is normal in size. The vascularity is normal. The hilar and mediastinal contours and visualized bony structures are unremarkable. XR/XR chest 2V IMPRESSION: Disc atelectasis right medial base.
--- NOTE | ~2020-08-18 | XR_ITS ---
EXAMINATION: XR ABDOMEN, 2 VIEWS CLINICAL INDICATION: Abdominal symptoms. Assess for obstruction. COMPARISON: CT abdomen and pelvis 07/20/2020, chest radiographs 08/18/2020 TECHNIQUE: Supine and upright views of the abdomen are obtained. FINDINGS: There is scattered gas in the bowel of normal caliber. There is no gaseous dilatation of bowel or abnormal collections of gas. There is no free air or differential air-fluid levels or pneumatosis. Surgical clips right upper quadrant are consistent with the cholecystectomy. Lung bases show no lobar or segmental airspace consolidation or effusion. XR/XR abdomen w decubitus IMPRESSION: Bowel gas unremarkable. No obstruction or free air.
[2020-08-18 15:03] VITALS: BP 101/60; BP 113/74; PULSE 76; PULSE 80; RESP 16; TEMP 37.7; O2SAT 94; BMI 27.4
--- NOTE | 2020-08-18 15:33 | ED_ITS ---
HPI - General Adult General Chief complaint: General Medical <Enrique Juarez MD - Last Filed: 08/26/20 09:22> Stated complaint: N/V/D, W/CP & BACK PAIN <Enrique Juarez MD - Last Filed: 08/26/20 09:22> Time Seen by Provider: 08/18/20 15:33 <Enrique Juarez MD - Last Filed: 08/26/20 09:22> Source: patient <Enrique Juarez MD - Last Filed: 08/26/20 09:22> Mode of arrival: ambulatory <Enrique Juarez MD - Last Filed: 08/26/20 09:22> Limitations: language barrier <Enrique Juarez MD - Last Filed: 08/26/20 09:22> History of Present Illness HPI narrative: nausea vomiting and diarrhea for 3 days, weakness <Enrique Juarez MD - Last Filed: 08/26/20 09:22> Onset (ago): day(s) <Enrique Juarez MD - Last Filed: 08/26/20 09:22> Severity: mild <Enrique Juarez MD - Last Filed: 08/26/20 09:22> Quality: aching <Enrique Juarez MD - Last Filed: 08/26/20 09:22> Associated symptoms: fever/chills and weakness <Enrique Juarez MD - Last Filed: 08/26/20 09:22> Related Data Home medications: Home Medications Medication Instructions Recorded Confirmed alprazolam 2 mg PO BEDTIME 02/17/20 06/13/20 budesonide [Pulmicort Flexhaler] 2 inh PO BID 02/17/20 06/13/20 dicyclomine 10 mg PO TID PRN 02/17/20 06/14/20 ergocalciferol (vitamin D2) 1,250 mcg PO FR@1000 02/17/20 06/13/20 fentanyl 25 mcg TOPICAL Q3D 02/17/20 06/13/20 fluoxetine 40 mg PO QAM 02/17/20 06/13/20 oxycodone-acetaminophen 1 tab PO BID-TID PRN 02/17/20 06/14/20 tiotropium bromide [Spiriva 2 puff INHALATION DAILY 02/17/20 06/13/20 Respimat] topiramate 25 mg PO BEDTIME 02/17/20 06/14/20 tiotropium bromide [Spiriva 2 puff INHALATION DAILY 06/13/20 06/13/20 Respimat] clotrimazole 1 appl TOPICAL BEDTIME 06/14/20 06/14/20 docusate sodium 100 mg PO BEDTIME PRN 06/14/20 06/14/20 insulin lispro [Humalog KwikPen 2 - 8 unit SUBCUT TID 06/14/20 06/14/20 Insulin] Previous Rx's Medication Instructions Recorded prednisone 40 mg PO DAILY 5 Days #10 tab 06/13/20 ondansetron 4 mg PO Q8H PRN #20 tab 08/18/20 <Enrique Juarez MD - Last Filed: 08/26/20 09:22> Allergies/adverse reactions: Allergies Allergy/AdvReac Type Severity Reaction Status Date / Time aspirin [Aspirin] Allergy Intermediate STOMACH Verified 05/22/20 16:41 UPSET Iodinated Contrast Media Allergy Unknown ITCHING Verified 05/22/20 16:41 [IV Dye, Iodine Containing Contrast ] shellfish derived Allergy Unknown UNKNOWN Verified 05/22/20 16:41 [SHELLFISH DERIVED] SEAFOOD Allergy Unknown UNKNOWN Uncoded 01/16/20 16:22 <Enrique Juarez MD - Last Filed: 08/26/20 09:22> Review of Systems Constitutional: Constitutional: Reports no additional constitutional complaints <Enrique Juarez MD - Last Filed: 08/26/20 09:22> Eyes: Eyes: Reports no additional eye complaints <Enrique Juarez MD - Last Filed: 08/26/20 09:22> ENT: Denies dizziness <Enrique Juarez MD - Last Filed: 08/26/20 09:22> Cardiovascular: Cardiovascular: Reports no additional cardiovascular complaints <Enrique Juarez MD - Last Filed: 08/26/20 09:22> Respiratory: Respiratory: Reports as per HPI <Enrique Juarez MD - Last Filed: 08/26/20 09:22> Gastrointestinal: Gastrointestinal: Reports no additional gastrointestinal complaints <Enrique Juarez MD - Last Filed: 08/26/20 09:22> Genitourinary: Genitourinary: Reports no additional female genitourinary complaints <Enrique Juarez MD - Last Filed: 08/26/20 09:22> Musculoskeletal: Musculoskeletal: Reports no additional musculoskeletal complaints <Enrique Juarez MD - Last Filed: 08/26/20 09:22> Integumentary/Breasts: Skin/Breast: Denies rash <Enrique Juarez MD - Last Filed: 08/26/20 09:22> Neurologic: Reports system reviewed and no additional complaints, except as documented, Denies dizziness and Denies Sensory deficit (Neuro) <Enrique Juarez MD - Last Filed: 08/26/20 09:22> Psychiatric: Psychiatric: Denies anxiety <Enrique Juarez MD - Last Filed: 08/26/20 09:22> PMFSH Past Medical History Medical History: Medical History Acute arthritis Asthma Chronic back pain Diabetes Hx of intestinal obstruction <Enrique Juarez MD - Last Filed: 08/26/20 09:22> Surgical History: Surgical History Hx of cholecystectomy Hx of hysterectomy <Enrique Juarez MD - Last Filed: 08/26/20 09:22> Social History Social History: Social History Alcohol intake: never Smoking Status: Current every day smoker Use of substances other than those prescribed or required for medical reasons: No Advance Directives: No Advance Directives Information Provided: No <Enrique Juarez MD - Last Filed: 08/26/20 09:22> Physical Exam Vital Signs: Vital Signs: Last Vital Signs Temp 99.8 F 08/18/20 15:03 Pulse 72 08/18/20 18:44 Resp 17 08/18/20 18:44 BP 99/59 L 08/18/20 18:44 Pulse Ox 99 08/18/20 18:44 Body Mass Index 27.4 <Enrique Juarez MD - Last Filed: 08/26/20 09:22> Vital Signs: Last Vital Signs Temp 99.8 F 08/18/20 15:03 Pulse 72 04/20/21 18:44 Resp 17 08/18/20 18:44 BP 99/59 L 08/18/20 18:44 Pulse Ox 99 08/18/20 18:44 Body Mass Index 27.4 <Yoli Crespo DO - Last Filed: 08/18/20 19:29> Const: Other: Female initally calm than rolling in pain <Enrique Juarez MD - Last Filed: 08/26/20 09:22> Nutritional Appearance: average body habitus <Enrique Juarez MD - Last Filed: 08/26/20 09:22> Orientation/consciousness: oriented to person and patient oriented x3 <Enrique Juarez MD - Last Filed: 08/26/20 09:22> Limitations: no limitations <Enrique Juarez MD - Last Filed: 08/26/20 09:22> HENMT: Head: Yes normal to inspection <Enrique Juarez MD - Last Filed: 08/26/20 09:22> Ears: external ears normal <Enrique Juarez MD - Last Filed: 08/26/20 09:22> General nose exam: Normal external nose present <Enrique Juarez MD - Last Filed: 08/26/20 09:22> Mouth: Normal oral and palatal mucosa present and oropharynx normal <Enrique Juarez MD - Last Filed: 08/26/20 09:22> Throat: Yes posterior oropharynx normal <Enrique Juarez MD - Last Filed: 08/26/20 09:22> Eyes: General: appearance normal, both eyes and all related structures <Enrique Juarez MD - Last Filed: 08/26/20 09:22> Neck: Other: supple <Enrique Juarez MD - Last Filed: 08/26/20 09:22> Neck: Yes normal visual inspection <Enrique Juarez MD - Last Filed: 08/26/20 09:22> Chest: Chest palpation & inspection: normal inspection of the chest <Enrique Juarez MD - Last Filed: 08/26/20 09:22> Resp: Auscultation: clear to auscultation bilaterally <Enrique Juarez MD - Last Filed: 08/26/20 09:22> Cardio: Jugular venous distension: no JVD <Enrique Juarez MD - Last Filed: 08/26/20 09:22> Rate: regular rate <Enrique Juarez MD - Last Filed: 08/26/20 09:22> Rhythm: regular rhythm <Enrique Juarez MD - Last Filed: 08/26/20 09:22> Heart sounds: S1 normal heart sound present and S2 normal heart sound present <Enrique Juarez MD - Last Filed: 08/26/20 09:22> GI: Other: abdomen with multiple surgical wound, soft although patient complained of pain <Enrique Juarez MD - Last Filed: 08/26/20 09:22> Palpation (GI): Soft to palpation <Enrique Juarez MD - Last Filed: 08/26/20 09:22> Auscultation: normal bowel sounds <Enrique Juarez MD - Last Filed: 08/26/20 09:22> : General: Yes no CVA tenderness <Enrique Juarez MD - Last Filed: 08/26/20 09:22> Back/Spine/Pelvis: Back: no CVA tenderness <Enrique Juarez MD - Last Filed: 08/26/20 09:22> Skin: General skin exam: no rashes or lesions noted <Enrique Juarez MD - Last Filed: 08/26/20 09:22> Neuro: General: oriented to person and patient oriented x3 <Enrique Juarez MD - Last Filed: 08/26/20 09:22> Cranial nerves: Yes CN's II-XII intact bilaterally <Enrique Juarez MD - Last Filed: 08/26/20 09:22> Motor exam (neuro): 5/5 motor strength present throughout <Enrique Juarez MD - Last Filed: 08/26/20 09:22> Sensory Exam: No Sensory deficit (Neuro) <Enrique Juarez MD - Last Filed: 08/26/20 09:22> Extrem: General: Yes normal to inspection <Enrique Juarez MD - Last Filed: 08/26/20 09:22> Psych: Appearance: grossly normal <Enrique Juarez MD - Last Filed: 08/26/20 09:22> Course Course Course Narrative: sign out for n/v patinet also c/o chest pain x 3 days given her hx of SBO at this time will obtain EKG, troponin for chest pain, non contrast CT scan to r/o SBO dispo per results and findings. nonischemic EKG , negative troponins, CT scan negative, feels better, stable for DC <Yoli Crespo DO - Last Filed: 08/18/20 19:29> Medical Decision Making Lab Data Result diagrams: : 08/18/20 16:50 08/18/20 16:50 <Enrique Juarez MD - Last Filed: 08/26/20 09:22> Labs: Lab Results 08/18/20 08/18/20 08/18/20 Range/Units 16:21 16:50 16:50 WBC 8.8 (4.8-10.8) X10*3/uL RBC 4.81 (4.20-5.50) X10*6/uL Hgb 12.9 (12.0-16.0) g/dl Hct 41.5 (37-47) % MCV 86.3 (80-98) fL MCH 26.8 L (27.0-33.0) pg MCHC 31.1 (31.0-35.0) g/dl RDW 13.6 (11.0-16.0) % Plt Count 266 (160-400) X10*3/uL MPV 10.3 (9.4-12.3) fL Immature Gran % (Auto) 0.2 (0.0-0.4) % Neut % (Auto) 58.4 (45-73) % Lymph % (Auto) 32.7 (20-40) % [place] % (Auto) 7.4 (2-11) % Eos % (Auto) 0.8 (0-4) % Baso % (Auto) 0.5 (0-2) % Lymph # (Auto) 2.9 (1.2-4.9) X10*3/uL [place] # (Auto) 0.7 (0.1-1.2) X10*3/uL Eos # (Auto) 0.1 (0.0-0.4) X10*3/uL Baso # (Auto) 0.0 (0.0-0.2) X10*3/uL Abs Immat Gran (auto) 0.02 (0.00-0.03) X10*3/uL Absolute Neuts (auto) 5.2 (2.0-8.3) X10*3/uL Absolute Nucleated RBC 0.000 (0.0-0.012) X10*3/uL Nucleated RBC % (auto) 0.0 (0.0-0.2) /100WBC Sodium 145 (135-145) mmol/L Potassium 4.0 (3.3-5.1) mmol/L Chloride 107 (96-108) mmol/L Carbon Dioxide 33 H (22-29) mmol/L Anion Gap 9 L (12-20) BUN 9 (9-16) mg/dL Creatinine 0.69 (0.5-1.4) mg/dL Estim Creat Clear Calc 64.9 Estimated GFR > 60 Random Glucose 73 (60-115) mg/dL Calcium 8.8 (8.4-10.2) mg/dL Total Bilirubin 0.6 (0.0-1.0) mg/dL Direct Bilirubin 0.5 (0.0-0.5) mg/dL AST 14 (5-31) U/L ALT 10 (0-31) U/L Alkaline Phosphatase 92 (39-117) U/L Troponin I High Sens (<3.5-17.0) ng/L Total Protein 6.1 L (6.5-8.0) g/dL Albumin 3.6 (3.5-5.0) g/dL Lipase 14 (8-78) U/L Coronavirus (PCR) NEGATIVE (Negative) Influenza Type A (PCR) NEGATIVE (Negative) Influenza Type B (PCR) NEGATIVE (Negative) RSV RNA Qual (PCR) NEGATIVE (Negative) 08/18/20 Range/Units 16:50 WBC (4.8-10.8) X10*3/uL RBC (4.20-5.50) X10*6/uL Hgb (12.0-16.0) g/dl Hct (37-47) % MCV (80-98) fL MCH (27.0-33.0) pg MCHC (31.0-35.0) g/dl RDW (11.0-16.0) % Plt Count (160-400) X10*3/uL MPV (9.4-12.3) fL Immature Gran % (Auto) (0.0-0.4) % Neut % (Auto) (45-73) % Lymph % (Auto) (20-40) % [place] % (Auto) (2-11) % Eos % (Auto) (0-4) % Baso % (Auto) (0-2) % Lymph # (Auto) (1.2-4.9) X10*3/uL [place] # (Auto) (0.1-1.2) X10*3/uL Eos # (Auto) (0.0-0.4) X10*3/uL Baso # (Auto) (0.0-0.2) X10*3/uL Abs Immat Gran (auto) (0.00-0.03) X10*3/uL Absolute Neuts (auto) (2.0-8.3) X10*3/uL Absolute Nucleated RBC (0.0-0.012) X10*3/uL Nucleated RBC % (auto) (0.0-0.2) /100WBC Sodium (135-145) mmol/L Potassium (3.3-5.1) mmol/L Chloride (96-108) mmol/L Carbon Dioxide (22-29) mmol/L Anion Gap (12-20) BUN (9-16) mg/dL Creatinine (0.5-1.4) mg/dL Estim Creat Clear Calc Estimated GFR Random Glucose (60-115) mg/dL Calcium (8.4-10.2) mg/dL Total Bilirubin (0.0-1.0) mg/dL Direct Bilirubin (0.0-0.5) mg/dL AST (5-31) U/L ALT (0-31) U/L Alkaline Phosphatase (39-117) U/L Troponin I High Sens < 3.5 (<3.5-17.0) ng/L Total Protein (6.5-8.0) g/dL Albumin (3.5-5.0) g/dL Lipase (8-78) U/L Coronavirus (PCR) (Negative) Influenza Type A (PCR) (Negative) Influenza Type B (PCR) (Negative) RSV RNA Qual (PCR) (Negative) <Enrique Juarez MD - Last Filed: 08/26/20 09:22> Lab Results 08/18/20 08/18/20 08/18/20 Range/Units 16:21 16:50 16:50 WBC 8.8 (4.8-10.8) X10*3/uL RBC 4.81 (4.20-5.50) X10*6/uL Hgb 12.9 (12.0-16.0) g/dl Hct 41.5 (37-47) % MCV 86.3 (80-98) fL MCH 26.8 L (27.0-33.0) pg MCHC 31.1 (31.0-35.0) g/dl RDW 13.6 (11.0-16.0) % Plt Count 266 (160-400) X10*3/uL MPV 10.3 (9.4-12.3) fL Immature Gran % (Auto) 0.2 (0.0-0.4) % Neut % (Auto) 58.4 (45-73) % Lymph % (Auto) 32.7 (20-40) % [place] % (Auto) 7.4 (2-11) % Eos % (Auto) 0.8 (0-4) % Baso % (Auto) 0.5 (0-2) % Lymph # (Auto) 2.9 (1.2-4.9) X10*3/uL [place] # (Auto) 0.7 (0.1-1.2) X10*3/uL Eos # (Auto) 0.1 (0.0-0.4) X10*3/uL Baso # (Auto) 0.0 (0.0-0.2) X10*3/uL Abs Immat Gran (auto) 0.02 (0.00-0.03) X10*3/uL Absolute Neuts (auto) 5.2 (2.0-8.3) X10*3/uL Absolute Nucleated RBC 0.000 (0.0-0.012) X10*3/uL Nucleated RBC % (auto) 0.0 (0.0-0.2) /100WBC Sodium 145 (135-145) mmol/L Potassium 4.0 (3.3-5.1) mmol/L Chloride 107 (96-108) mmol/L Carbon Dioxide 33 H (22-29) mmol/L Anion Gap 9 L (12-20) BUN 9 (9-16) mg/dL Creatinine 0.69 (0.5-1.4) mg/dL Estim Creat Clear Calc 64.9 Estimated GFR > 60 Random Glucose 73 (60-115) mg/dL Calcium 8.8 (8.4-10.2) mg/dL Total Bilirubin 0.6 (0.0-1.0) mg/dL Direct Bilirubin 0.5 (0.0-0.5) mg/dL AST 14 (5-31) U/L ALT 10 (0-31) U/L Alkaline Phosphatase 92 (39-117) U/L Troponin I High Sens (<3.5-17.0) ng/L Total Protein 6.1 L (6.5-8.0) g/dL Albumin 3.6 (3.5-5.0) g/dL Lipase 14 (8-78) U/L Coronavirus (PCR) NEGATIVE (Negative) Influenza Type A (PCR) NEGATIVE (Negative) Influenza Type B (PCR) NEGATIVE (Negative) RSV RNA Qual (PCR) NEGATIVE (Negative) 08/18/20 Range/Units 16:50 WBC (4.8-10.8) X10*3/uL RBC (4.20-5.50) X10*6/uL Hgb (12.0-16.0) g/dl Hct (37-47) % MCV (80-98) fL MCH (27.0-33.0) pg MCHC (31.0-35.0) g/dl RDW (11.0-16.0) % Plt Count (160-400) X10*3/uL MPV (9.4-12.3) fL Immature Gran % (Auto) (0.0-0.4) % Neut % (Auto) (45-73) % Lymph % (Auto) (20-40) % [place] % (Auto) (2-11) % Eos % (Auto) (0-4) % Baso % (Auto) (0-2) % Lymph # (Auto) (1.2-4.9) X10*3/uL [place] # (Auto) (0.1-1.2) X10*3/uL Eos # (Auto) (0.0-0.4) X10*3/uL Baso # (Auto) (0.0-0.2) X10*3/uL Abs Immat Gran (auto) (0.00-0.03) X10*3/uL Absolute Neuts (auto) (2.0-8.3) X10*3/uL Absolute Nucleated RBC (0.0-0.012) X10*3/uL Nucleated RBC % (auto) (0.0-0.2) /100WBC Sodium (135-145) mmol/L Potassium (3.3-5.1) mmol/L Chloride (96-108) mmol/L Carbon Dioxide (22-29) mmol/L Anion Gap (12-20) BUN (9-16) mg/dL Creatinine (0.5-1.4) mg/dL Estim Creat Clear Calc Estimated GFR Random Glucose (60-115) mg/dL Calcium (8.4-10.2) mg/dL Total Bilirubin (0.0-1.0) mg/dL Direct Bilirubin (0.0-0.5) mg/dL AST (5-31) U/L ALT (0-31) U/L Alkaline Phosphatase (39-117) U/L Troponin I High Sens < 3.5 (<3.5-17.0) ng/L Total Protein (6.5-8.0) g/dL Albumin (3.5-5.0) g/dL Lipase (8-78) U/L Coronavirus (PCR) (Negative) Influenza Type A (PCR) (Negative) Influenza Type B (PCR) (Negative) RSV RNA Qual (PCR) (Negative) <Yoli Crespo DO - Last Filed: 08/18/20 19:29> ECG Data Attestation: I personally reviewed and interpreted this ECG as follows: <Yoli Crespo DO - Last Filed: 08/18/20 19:29> Interpretation: Rate: 61 Rhythm: NSR [place]: normal Normal P waves. Normal BONIFACIO. Normal QRS complex. ST T wave : no ASIF, inverted V1-V3 qTC: normal prior studies: no change October 2019 The study has been interpreted contemporaneously by me. . <Yoli Crespo DO - Last Filed: 08/18/20 19:29> Discharge Plan Discharge Clinical Impression: Vomiting, Chest pain, Abdominal pain <Enrique Juarez MD - Last Filed: 08/26/20 09:22> Patient Disposition: Home, Self-Care <Enrique Juarez MD - Last Filed: 08/26/20 09:22> Instructions: Chest Pain (ED), Acute Nausea and Vomiting (ED), Abdominal Pain (ED) <Enrique Juarez MD - Last Filed: 08/26/20 09:22> Additional Instructions: return to ED for any worsening symptoms or concerns <Enrique Juarez MD - Last Filed: 08/26/20 09:22> Prescriptions: New ondansetron 4 mg tablet,disintegrating 4 mg PO Q8H PRN (Reason: nausea and vomiting) Qty: 20 RF: 0 No Action fluoxetine 40 mg capsule 40 mg PO QAM RF: 0 topiramate 25 mg tablet 25 mg PO BEDTIME RF: 0 ergocalciferol (vitamin D2) 1,250 mcg (50,000 unit) capsule 1,250 mcg PO FR@1000 RF: 0 fentanyl 25 mcg/hr patch 72 hour 25 mcg topical Q3D RF: 0 oxycodone-acetaminophen 7.5-325 mg tablet 1 tab PO BID-TID PRN (Reason: Pain) RF: 0 dicyclomine 10 mg capsule 10 mg PO TID PRN (Reason: Abdominal Pain) RF: 0 Pulmicort Flexhaler 180 mcg/actuation aerosol powdr breath activated 2 inh PO BID RF: 0 Spiriva Respimat 2.5 mcg/actuation mist 2 puff inhalation DAILY RF: 0 alprazolam 2 mg Tablet 2 mg PO BEDTIME RF: 0 prednisone 20 mg tablet 40 mg PO DAILY 5 Days Qty: 10 RF: 0 Spiriva Respimat 2.5 mcg/actuation mist 2 puff inhalation DAILY RF: 0 clotrimazole 1 % cream 1 appl topical BEDTIME RF: 0 insulin lispro [Humalog KwikPen Insulin] 100 unit/mL insulin pen 2 - 8 unit subcut TID RF: 0 docusate sodium 100 mg capsule 100 mg PO BEDTIME PRN (Reason: Constipation) RF: 0 <Enrique Juarez MD - Last Filed: 08/26/20 09:22> Referrals: Aye Sosa MD [Primary Care Provider] - 2 days (if not better) <Enrique Juarez MD - Last Filed: 08/26/20 09:22> Interventions: ED Discharge Assessment Last Done: 08/18/20 20:06 <Enrique Juarez MD - Last Filed: 08/26/20 09:22> Discharge Date/Time: 08/18/20 20:18 <Enrique Juarez MD - Last Filed: 08/26/20 09:22> Print Language: Mongolian <Enrique Juarez MD - Last Filed: 08/26/20 09:22>
[2020-08-18] MEDS: 0.9 % Sodium Chloride 1,000 ML 999 ML IVCONT ×2 (16:08→18:42)
[2020-08-18] MEDS: ondansetron HCL 4 MG/2 ML VIAL IVPUSH (16:10)
[2020-08-18 16:58] LABS: MANUAL DIFF FLAG NO
[2020-08-18 17:04] LABS: Basophils Percent Auto 0.5 % (0-2); Eosinophils Absolute Auto 0.1 X10*3/uL (0.0-0.4); Eosinophils Percent Auto 0.8 % (0-4); Hematocrit 41.5 % (37-47); Hemoglobin 12.9 g/dl (12.0-16.0); Imm Gran Abs Auto 0.02 X10*3/uL (0.00-0.03); Imm Gran Pct Auto 0.2 % (0.0-0.4); Lymphocytes Absolute Auto 2.9 X10*3/uL (1.2-4.9); Lymphocytes Percent Auto 32.7 % (20-40); Mean Corpuscular HGB Conc 31.1 g/dl (31.0-35.0); Mean Corpuscular Hemoglobin 26.8 pg (27.0-33.0); Mean Corpuscular Volume 86.3 fL (80-98); Mean Platelet Volume 10.3 fL (9.4-12.3); Monocytes Absolute Auto 0.7 X10*3/uL (0.1-1.2); Monocytes Percent Auto 7.4 % (2-11); Neutrophils Absolute Auto 5.2 X10*3/uL (2.0-8.3); Neutrophils Percent Auto 58.4 % (45-73); Platelet Count 266 X10*3/uL (160-400); Red Blood Count 4.81 X10*6/uL (4.20-5.50); Red Cell Distribution Width 13.6 % (11.0-16.0); White Blood Count 8.8 X10*3/uL (4.8-10.8)
--- NOTE | 2020-08-18 17:28 | ECG_ITS ---
Test Reason : COVID SYMPTOMS Blood Pressure : / mmHG Vent. Rate : 061 BPM Atrial Rate : 061 BPM P-R Int : 144 ms QRS Dur : 080 ms QT Int : 442 ms P-R-T Axes : 052 032 -14 degrees QTc Int : 444 ms Normal sinus rhythm Nonspecific T wave abnormality Abnormal ECG When compared with ECG of 22-MAY-2020 18:40, Inverted T waves have replaced nonspecific T wave abnormality in Inferior leads Referred By: Yoli Crespo Electronically Signed By:Jose F Gibson
[2020-08-18 17:35] LABS: Alanine Aminotransferase 10 U/L (0-31); Albumin Level 3.6 g/dL (3.5-5.0); Alkaline Phosphatase 92 U/L (39-117); Anion Gap 9 (12-20); Aspartate Amino Transferase 14 U/L (5-31); Bilirubin Direct 0.5 mg/dL (0.0-0.5); Bilirubin Total 0.6 mg/dL (0.0-1.0); Blood Urea Nitrogen 9 mg/dL (9-16); Calcium 8.8 mg/dL (8.4-10.2); Carbon Dioxide 33 mmol/L (22-29); Chloride 107 mmol/L (96-108); Creatinine Clr Calc Pharmacy 64.9; Estimated Glomerular Filt Rate > 60; Glucose Random 73 mg/dL (60-115); Lipase 14 U/L (8-78); Sodium 145 mmol/L (135-145); Total Protein 6.1 g/dL (6.5-8.0)
[2020-08-18 17:45] LABS: Influenza A PCR NEGATIVE (Negative); Influenza B PCR NEGATIVE (Negative); Resp Syncy Virus RNA Qual PCR NEGATIVE (Negative); SARS COV2 PCR INHOUSE NEGATIVE (Negative)
[2020-08-18 18:44] VITALS: BP 99/59; PULSE 72; RESP 17; O2SAT 99
[2020-08-18 18:46] LABS: Troponin-I High Sensitivity < 3.5 ng/L (<3.5-17.0)
--- NOTE | 2020-08-18 19:42 | PC.NURSE ---
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
== END 2020-08-18 20:18 | disposition home or self-care (01) ==
PROVIDERS: Emergency Medicine; Emergency Provider Emergency Medicine; PCP Internal Medicine
DX: R07.9 Chest pain, unspecified (principal); R11.2 Nausea with vomiting, unspecified; R10.9 Unspecified abdominal pain; Z20.822 Contact with and (suspected) exposure to COVID-19; E11.9 Type 2 diabetes mellitus without complications; F17.200 Nicotine dependence, unspecified, uncomplicated
CPT/HCPCS: 0241U; 36415; 71046; 74021; 74176; 80048; 80076; 83690; 84484; 85025; 93005; 96361; 96374; 99284; J2405

== ENCOUNTER 2020-09-16 17:08 | Emergency (ER) | payer MEDICARE, MEDICAID, SELFPAY ==
--- NOTE | ~2020-09-16 | CT_ITS ---
EXAMINATION: CT ABDOMEN AND PELVIS WITHOUT CONTRAST CLINICAL INFORMATION: 65-year-old female with vomiting and diarrhea. Rule out diverticulitis. COMPARISON: CT abdomen pelvis 08/18/2020 TECHNIQUE: Multidetector volumetric imaging was performed from the superior aspect of the liver through the pubic symphysis. Sagittal and coronal reformatted images were obtained on the technologist's workstation. This CT examination was performed using dose optimization techniques as appropriate, variously including the following: *Automated exposure control *Adjustment of mA and/or kV according to patient size (this includes techniques or standardized protocols for targeted exams where dose is matched to indication/reason for exam; i.e. extremities or head) *Use of iterative reconstruction technique DLP: 431 mGy-cm FINDINGS: Visualized lung bases demonstrate mild dependent atelectasis. The liver demonstrates normal size, contour and attenuation. The gallbladder is surgically absent. Fatty atrophy of the pancreas. The spleen and adrenal glands are unremarkable. Symmetrically sized kidneys. No renal calculi or hydronephrosis of either kidney. Small right renal cyst is stable. The stomach is decompressed. Normal caliber loops of small and large bowel. No appreciable colonic diverticulosis. Nonaneurysmal abdominal aorta. No retroperitoneal lymphadenopathy. The bladder is normal in appearance. The uterus is surgically absent. No gross free pelvic fluid. No inguinal lymphadenopathy. Mild to moderate degenerative changes of the spine. CT/CT abdomen pelvis wo con IMPRESSION: Stable examination demonstrating no CT evidence acute abnormality within the pelvis.
[2020-09-16 17:14] VITALS: BP 110/78; PULSE 80; O2SAT 98
[2020-09-16 17:32] VITALS: BP 127/82; PULSE 80; RESP 15; TEMP 37; O2SAT 98; BMI 26.8
--- NOTE | 2020-09-16 17:44 | ECG_ITS ---
Test Reason : ABDOMINAL PAIN Blood Pressure : / mmHG Vent. Rate : 062 BPM Atrial Rate : 062 BPM P-R Int : 160 ms QRS Dur : 072 ms QT Int : 420 ms P-R-T Axes : 062 030 027 degrees QTc Int : 426 ms Normal sinus rhythm Normal ECG When compared with ECG of 18-AUG-2020 18:24, Nonspecific T wave abnormality has replaced inverted T waves in Inferior leads Referred By: Vandana Suarez Electronically Signed By:SHAMIR HERNANDEZ MD
--- NOTE | 2020-09-16 17:45 | ED_ITS ---
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 Patient denies black or bloody stools. She does feel like her stools have been darker than normal but not black. She is having 4-5 episodes of diarrhea a day. No recent antibiotics. No recent travel. No sick contact. Also complaining of intermittent vomiting. Last vomiting episode this morning. No fevers, chills. Some burning with urination. Also complaining of generalized weakness. Lives at home with her but states ?he he does not help me?. Patient has gone to a short-term rehab facility previously and feels like this was helpful. She is requesting placement again. Related Data Home Medications Medication Instructions Recorded Confirmed dicyclomine 10 mg PO TID PRN 02/17/20 09/16/20 ergocalciferol (vitamin D2) 1,250 mcg PO FR@1000 02/17/20 09/16/20 fentanyl 25 mcg TOPICAL Q3D 02/17/20 09/16/20 fluoxetine 40 mg PO QAM 02/17/20 09/16/20 oxycodone-acetaminophen 1 tab PO BID-TID PRN 02/17/20 09/16/20 tiotropium bromide [Spiriva 2 puff INHALATION DAILY 02/17/20 09/16/20 Respimat] topiramate 25 mg PO BEDTIME 02/17/20 09/16/20 docusate sodium 100 mg PO BEDTIME PRN 06/14/20 09/16/20 insulin lispro [Humalog KwikPen 4 unit SUBCUT TIDAC 06/14/20 09/16/20 Insulin] alprazolam 1 tab PO BEDTIME 09/16/20 09/16/20 alprazolam 1 tab PO BID 09/16/20 09/16/20 naloxone [Narcan] See Rx Instructions .ROUTE .COMPLEX 09/16/20 09/16/20 Allergies Allergy/AdvReac Type Severity Reaction Status Date / Time aspirin [Aspirin] Allergy Intermediate STOMACH Verified 05/22/20 16:41 UPSET Iodinated Contrast Media Allergy Unknown ITCHING Verified 05/22/20 16:41 [IV Dye, Iodine Containing Contrast ] shellfish derived Allergy Unknown UNKNOWN Verified 05/22/20 16:41 [SHELLFISH DERIVED] SEAFOOD Allergy Unknown UNKNOWN Uncoded 01/16/20 16:22 Review of Systems Review of Systems Yes all other systems are reviewed and are negative Constitutional: Reports no additional constitutional complaints, Denies body ache(s), Denies chills, Denies fever(s), Denies headache(s) and Reports weakness Eyes: Reports no additional eye complaints and Denies change in vision Reports system reviewed and no additional complaints, except as documented, Denies dizziness, Denies headache(s), Denies nasal congestion, Denies nasal discharge and Denies neck pain Cardiovascular: Reports no additional cardiovascular complaints, Denies chest pain, Denies leg edema and Denies dyspnea Respiratory: Reports no additional respiratory complaints, Denies cough and Denies dyspnea Gastrointestinal: Reports no additional gastrointestinal complaints, Reports abdominal pain, Reports diarrhea, Reports nausea and Reports vomiting Genitourinary: Reports no additional female genitourinary complaints and Denies urinary incontinence Musculoskeletal: Reports no additional musculoskeletal complaints, Denies back pain, Denies arthralgias, Denies joint swelling, Denies neck pain, Denies numbness and Denies tingling Skin/Breast: Reports system reviewed and no additional complaints, except as docu and Denies rash Reports system reviewed and no additional complaints, except as documented, Denies Abnormal speech present, Denies dizziness, Denies headache(s), Denies numbness, Denies tingling and Reports weakness Physical Exam Vital Signs: Vital Signs: Last Vital Signs Temp 98.9 F 09/16/20 19:09 Pulse 63 09/16/20 20:06 Resp 15 09/16/20 20:06 BP 136/80 09/16/20 20:06 Pulse Ox 96 09/16/20 20:06 Body Mass Index 26.8 Const: General: cooperative, healthy appearing, comfortable and no acute distress Orientation/consciousness: patient oriented x3 Limitations: no limitations HENMT: Head: Yes normal to inspection Ears: hearing grossly normal bilaterally General nose exam: Normal external nose present Face and sinus: Yes normal facial exam Mouth: Normal oral and palatal mucosa present Throat: Yes posterior oropharynx normal Eyes: General: appearance normal, both eyes and all related structures Pupils: Equal, round and reactive pupils present Neck: Neck: Yes normal visual inspection Chest: Chest palpation & inspection: normal inspection of the chest Resp: Effort & Inspection: normal respiratory effort Auscultation: clear to auscultation bilaterally Cardio: Rate: regular rate Rhythm: regular rhythm Peripheral pulses: Per ipheral pulses 2+ throughout GI: Inspection: Yes normal to inspection Palpation (GI): Soft to palpation and Tenderness to palpation present (GI) (Moderate diffusely with guarding. No rebound) Auscultation: normal bowel sounds Rectal Exam - Female: normal sphincter tone and heme negative stool Back/Spine/Pelvis: Thoracic/Lumbar Spine: thoracic and lumbar spine normal to inspection Skin: General skin exam: no rashes or lesions noted Neuro: General: patient oriented x3, no focal motor deficits and normal sensation to monofilament Cranial nerves: Yes Equal, round and reactive pupils present Cognition (Neuro): normal cognition Speech: No Abnormal speech present Gait exam (Neuro): Normal gait present Motor exam (neuro): 5/5 motor strength present throughout Extrem: General: Yes normal to inspection, Yes no pedal edema and Yes no calf tenderness Course Course Course Narrative: 65-year-old female here with generalized abdominal cramping, vomiting, diarrhea for about a week now with generalized weakness. Exam she has moderate diffuse tenderness with some guarding but no rebound. Will need labs, UA, CT a/P w/o contrast d/t allergy, stool studies. Also requesting short-term rehab placement as she feels like she is too weak to go home. PT consult ordered, case management consult ordered. 2014-CT negative. Labs unremarkable. UA is pending. Patient unable to provide a stool sample while she was here for greater than 5 hours. She has no risk factors for C diff with a normal white blood cell count and normal renal functions so this does not need to have been urgently. ?abdominal cramping/vomiting/diarrhea secondary to viral gastroenteritis. Physical therapy is not here tonight and so patient will be held in the emergency department overnight for physical therapy and case management in the morning. 2049-UA negative. Medically cleared for CM/PT in AM. 2099-Sign out to night team pending above. MDM - Abdominal Pain MDM Narrative Medical decision making narrative: infectious diarrhea Differential Diagnosis Differential diagnosis: Likely diverticulitis, gastroenteritis and small bowel obstruction Medical Records Attestation: I reviewed the patient's medical records. Lab Data Attestation: I reviewed the patient's lab results. Result diagrams: 09/16/20 17:44 09/16/20 17:44 Labs: Lab Results 09/16/20 09/16/20 09/16/20 Range/Units 17:44 17:44 17:44 WBC 8.9 (4.8-10.8) X10*3/uL RBC 5.07 (4.20-5.50) X10*6/uL Hgb 13.9 (12.0-16.0) g/dl Hct 43.4 (37-47) % MCV 85.6 (80-98) fL MCH 27.4 (27.0-33.0) pg MCHC 32.0 (31.0-35.0) g/dl RDW 14.3 (11.0-16.0) % Plt Count 314 (160-400) X10*3/uL MPV 10.6 (9.4-12.3) fL Immature Gran % (Auto) 0.3 (0.0-0.4) % Neut % (Auto) 65.3 (45-73) % Lymph % (Auto) 28.8 (20-40) % Spencer % (Auto) 5.0 (2-11) % Eos % (Auto) 0.3 (0-4) % Baso % (Auto) 0.3 (0-2) % Lymph # (Auto) 2.6 (1.2-4.9) X10*3/uL Spencer # (Auto) 0.5 (0.1-1.2) X10*3/uL Eos # (Auto) 0.0 (0.0-0.4) X10*3/uL Baso # (Auto) 0.0 (0.0-0.2) X10*3/uL Abs Immat Gran (auto) 0.03 (0.00-0.03) X10*3/uL Absolute Neuts (auto) 5.8 (2.0-8.3) X10*3/uL Absolute Nucleated RBC 0.000 (0.0-0.012) X10*3/uL Nucleated RBC % (auto) 0.0 (0.0-0.2) /100WBC PT 12.7 (10.8-13.0) SEC INR 1.1 (0.9-1.1) Sodium Cancelled Potassium Cancelled Chloride Cancelled Carbon Dioxide Cancelled Anion Gap Cancelled BUN Cancelled Creatinine Cancelled Estim Creat Clear Calc Cancelled Estimated GFR Cancelled Random Glucose Cancelled Calcium Cancelled Total Bilirubin (0.0-1.0) mg/dL Direct Bilirubin (0.0-0.5) mg/dL AST (5-31) U/L ALT (0-31) U/L Alkaline Phosphatase (39-117) U/L Total Protein (6.5-8.0) g/dL Albumin (3.5-5.0) g/dL Lipase (8-78) U/L Urine Color Urine Appearance Urine pH (5.0-8.0) Ur Specific [place] (1.005-1.025) Urine Protein (NEG-TRACE) MG/DL Urine Glucose (UA) (NEG) MG/DL Urine Ketones (NEG) MG/DL Urine Blood (NEG) Urine Nitrite (NEG) Ur Leukocyte Esterase (NEG) Stool Occult Blood (NEGATIVE) COVID-19 (PAIGE) (Negative) COVID-19 Clin Com 09/16/20 09/16/20 09/16/20 Range/Units 17:44 17:49 20:11 WBC (4.8-10.8) X10*3/uL RBC (4.20-5.50) X10*6/uL Hgb (12.0-16.0) g/dl Hct (37-47) % MCV (80-98) fL MCH (27.0-33.0) pg MCHC (31.0-35.0) g/dl RDW (11.0-16.0) % Plt Count (160-400) X10*3/uL MPV (9.4-12.3) fL Immature Gran % (Auto) (0.0-0.4) % Neut % (Auto) (45-73) % Lymph % (Auto) (20-40) % Spencer % (Auto) (2-11) % Eos % (Auto) (0-4) % Baso % (Auto) (0-2) % Lymph # (Auto) (1.2-4.9) X10*3/uL Spencer # (Auto) (0.1-1.2) X10*3/uL Eos # (Auto) (0.0-0.4) X10*3/uL Baso # (Auto) (0.0-0.2) X10*3/uL Abs Immat Gran (auto) (0.00-0.03) X10*3/uL Absolute Neuts (auto) (2.0-8.3) X10*3/uL Absolute Nucleated RBC (0.0-0.012) X10*3/uL Nucleated RBC % (auto) (0.0-0.2) /100WBC PT (10.8-13.0) SEC INR (0.9-1.1) Sodium 141 Potassium 3.9 Chloride 108 Carbon Dioxide 26 Anion Gap 11 L BUN 7 L Creatinine 0.72 Estim Creat Clear Calc 61.5 Estimated GFR > 60 Random Glucose 103 D Calcium 9.3 Total Bilirubin 0.5 (0.0-1.0) mg/dL Direct Bilirubin 0.2 (0.0-0.5) mg/dL AST 12 (5-31) U/L ALT 9 (0-31) U/L Alkaline Phosphatase 100 (39-117) U/L Total Protein 6.6 (6.5-8.0) g/dL Albumin 4.0 (3.5-5.0) g/dL Lipase 12 (8-78) U/L Urine Color Urine Appearance Urine pH (5.0-8.0) Ur Specific [place] (1.005-1.025) Urine Protein (NEG-TRACE) MG/DL Urine Glucose (UA) (NEG) MG/DL Urine Ketones (NEG) MG/DL Urine Blood (NEG) Urine Nitrite (NEG) Ur Leukocyte Esterase (NEG) Stool Occult Blood NEGATIVE (NEGATIVE) COVID-19 (PAIGE) Negative (Negative) COVID-19 Clin Com See Note 09/16/20 Range/Units 20:19 WBC (4.8-10.8) X10*3/uL RBC (4.20-5.50) X10*6/uL Hgb (12.0-16.0) g/dl Hct (37-47) % MCV (80-98) fL MCH (27.0-33.0) pg MCHC (31.0-35.0) g/dl RDW (11.0-16.0) % Plt Count (160-400) X10*3/uL MPV (9.4-12.3) fL Immature Gran % (Auto) (0.0-0.4) % Neut % (Auto) (45-73) % Lymph % (Auto) (20-40) % Spencer % (Auto) (2-11) % Eos % (Auto) (0-4) % Baso % (Auto) (0-2) % Lymph # (Auto) (1.2-4.9) X10*3/uL Spencer # (Auto) (0.1-1.2) X10*3/uL Eos # (Auto) (0.0-0.4) X10*3/uL Baso # (Auto) (0.0-0.2) X10*3/uL Abs Immat Gran (auto) (0.00-0.03) X10*3/uL Absolute Neuts (auto) (2.0-8.3) X10*3/uL Absolute Nucleated RBC (0.0-0.012) X10*3/uL Nucleated RBC % (auto) (0.0-0.2) /100WBC PT (10.8-13.0) SEC INR (0.9-1.1) Sodium Potassium Chloride Carbon Dioxide Anion Gap BUN Creatinine Estim Creat Clear Calc Estimated GFR Random Glucose Calcium Total Bilirubin (0.0-1.0) mg/dL Direct Bilirubin (0.0-0.5) mg/dL AST (5-31) U/L ALT (0-31) U/L Alkaline Phosphatase (39-117) U/L Total Protein (6.5-8.0) g/dL Albumin (3.5-5.0) g/dL Lipase (8-78) U/L Urine Color YELLOW Urine Appearance CLEAR Urine pH 7.0 (5.0-8.0) Ur Specific [place] 1.020 (1.005-1.025) Urine Protein NEG (NEG-TRACE) MG/DL Urine Glucose (UA) NEG (NEG) MG/DL Urine Ketones NEG (NEG) MG/DL Urine Blood NEG (NEG) Urine Nitrite NEG (NEG) Ur Leukocyte Esterase NEG (NEG) Stool Occult Blood (NEGATIVE) COVID-19 (PAIGE) (Negative) COVID-19 Clin Com Imaging Data CT scan - abdomen: Attestation: I personally reviewed and interpreted this imaging study as follows: Radiologist's impression: EXAMINATION: CT ABDOMEN AND PELVIS WITHOUT CONTRAST CLINICAL INFORMATION: 65-year-old female with vomiting and diarrhea. Rule out diverticulitis. COMPARISON: CT abdomen pelvis 08/18/2020 TECHNIQUE: Multidetector volumetric imaging was performed from the superior aspect of the liver through the pubic symphysis. Sagittal and coronal reformatted images were obtained on the technologist's workstation. This CT examination was performed using dose optimization techniques as appropriate, variously including the following: *Automated exposure control *Adjustment of mA and/or kV according to patient size (this includes techniques or standardized protocols for targeted exams where dose is matched to indication/reason for exam; i.e. extremities or head) *Use of iterative reconstruction technique DLP: 431 mGy-cm FINDINGS: Visualized lung bases demonstrate mild dependent atelectasis. The liver demonstrates normal size, contour and attenuation. The gallbladder is surgically absent. Fatty atrophy of the pancreas. The spleen and adrenal glands are unremarkable. Symmetrically sized kidneys. No renal calculi or hydronephrosis of either kidney. Small right renal cyst is stable. The stomach is decompressed. Normal caliber loops of small and large bowel. No appreciable colonic diverticulosis. Nonaneurysmal abdominal aorta. No retroperitoneal lymphadenopathy. The bladder is normal in appearance. The uterus is surgically absent. No gross free pelvic fluid. No inguinal lymphadenopathy. Mild to moderate degenerative changes of the spine. CT/CT abdomen pelvis wo con IMPRESSION: Stable examination demonstrating no CT evidence acute abnormality within the pelvis. ECG Data Attestation: I personally reviewed and interpreted this ECG as follows: ECG interpretation date: 09/16/20 ECG interpretation time: 18:27 Interpretation: Sinus rhythm, rate of 62, normal IN, normal QRS, QTC 420 Discharge Plan Discharge Clinical Impression: Gastroenteritis, Weakness Prescriptions: No Action fluoxetine 40 mg capsule 40 mg PO QAM RF: 0 topiramate 25 mg tablet 25 mg PO BEDTIME RF: 0 ergocalciferol (vitamin D2) 1,250 mcg (50,000 unit) capsule 1,250 mcg PO FR@1000 RF: 0 fentanyl 25 mcg/hr patch 72 hour 25 mcg topical Q3D RF: 0 oxycodone-acetaminophen 7.5-325 mg tablet 1 tab PO BID-TID PRN (Reason: Pain) RF: 0 dicyclomine 10 mg capsule 10 mg PO TID PRN (Reason: Abdominal Pain) RF: 0 Spiriva Respimat 2.5 mcg/actuation mist 2 puff inhalation DAILY RF: 0 insulin lispro [Humalog KwikPen Insulin] 100 unit/mL insulin pen 4 unit subcut TIDAC RF: 0 docusate sodium 100 mg capsule 100 mg PO BEDTIME PRN (Reason: Constipation) RF: 0 alprazolam 1 mg tablet 1 tab PO BEDTIME RF: 0 alprazolam 0.5 mg tablet 1 tab PO BID RF: 0 Narcan 4 mg/actuation spray,non-aerosol See Rx Instructions .ROUTE .COMPLEX RF: 0 PMFSH Past Medical History Attestation statement: The following information was validated with the patient. Source: old records reviewed and nursing notes reviewed Medical History Acute arthritis Asthma Chronic back pain Diabetes Hx of intestinal obstruction Surgical History Hx of cholecystectomy Hx of hysterectomy Social History Social History Alcohol intake: never Smoking Status: Former smoker Use of substances other than those prescribed or required for medical reasons: No Advance Directives: No Advance Directives Information Provided: Yes
[2020-09-16 17:53] LABS: MANUAL DIFF FLAG NO
[2020-09-16 18:00] VITALS: BP 116/68; PULSE 70; RESP 15; O2SAT 98
[2020-09-16 18:02] LABS: OBS Int Ctl Valid YES; OBS1 NEGATIVE (NEGATIVE)
[2020-09-16 18:09] LABS: INTERNATIONAL NORM RATIO 1.1 (0.9-1.1); Prothrombin Time 12.7 SEC (10.8-13.0)
[2020-09-16 18:14] VITALS: RESP 15
[2020-09-16] MEDS: Morphine Sulfate 2 MG/ML CARTRIDGE IVPUSH (18:14)
[2020-09-16 18:19] LABS: Basophils Percent Auto 0.3 % (0-2); Eosinophils Percent Auto 0.3 % (0-4); Hematocrit 43.4 % (37-47); Hemoglobin 13.9 g/dl (12.0-16.0); Imm Gran Abs Auto 0.03 X10*3/uL (0.00-0.03); Imm Gran Pct Auto 0.3 % (0.0-0.4); Lymphocytes Absolute Auto 2.6 X10*3/uL (1.2-4.9); Lymphocytes Percent Auto 28.8 % (20-40); Mean Corpuscular Hemoglobin 27.4 pg (27.0-33.0); Mean Corpuscular Volume 85.6 fL (80-98); Mean Platelet Volume 10.6 fL (9.4-12.3); Monocytes Absolute Auto 0.5 X10*3/uL (0.1-1.2); Neutrophils Absolute Auto 5.8 X10*3/uL (2.0-8.3); Neutrophils Percent Auto 65.3 % (45-73); Platelet Count 314 X10*3/uL (160-400); Red Blood Count 5.07 X10*6/uL (4.20-5.50); Red Cell Distribution Width 14.3 % (11.0-16.0); White Blood Count 8.9 X10*3/uL (4.8-10.8)
[2020-09-16 18:23] LABS: Alanine Aminotransferase 9 U/L (0-31); Alkaline Phosphatase 100 U/L (39-117); Anion Gap 11 (12-20); Aspartate Amino Transferase 12 U/L (5-31); Bilirubin Direct 0.2 mg/dL (0.0-0.5); Bilirubin Total 0.5 mg/dL (0.0-1.0); Blood Urea Nitrogen 7 mg/dL (9-16); Calcium 9.3 mg/dL (8.4-10.2); Carbon Dioxide 26 mmol/L (22-29); Chloride 108 mmol/L (96-108); Creatinine Clr Calc Pharmacy 61.5; Estimated Glomerular Filt Rate > 60; Glucose Random 103 mg/dL (60-115); Lipase 12 U/L (8-78); Potassium 3.9 mmol/L (3.3-5.1); Sodium 141 mmol/L (135-145); Total Protein 6.6 g/dL (6.5-8.0)
[2020-09-16 19:09] VITALS: BP 109/65; PULSE 65; RESP 18; TEMP 37.2; O2SAT 96
[2020-09-16 20:06] VITALS: BP 136/80; PULSE 63; RESP 15; O2SAT 96
[2020-09-16 20:27] LABS: Appearance Urine CLEAR; Color Urine YELLOW; Glucose Urine UA NEG (NEG); Leukocyte Esterase Urine NEG (NEG); Nitrite Urine NEG (NEG); Urine Blood NEG (NEG); Urine Ketones NEG (NEG); Urine Protein NEG (NEG-TRACE)
--- NOTE | 2020-09-16 20:31 | PC.NURSE ---
Patient stating that she cannot care for herself and lives alone. Patient is asking for placement in Rehab/SNF. Case management consult ordered and pt evaluation
[2020-09-16 20:33] LABS: COVID-19 Test Negative (Negative); IDNOW Serial# 9DD0AD1C
[2020-09-16] MEDS: diphenhydrAMINE HCL 25 MG TABLET 50 MG PO (20:45)
[2020-09-16] MEDS: Dicyclomine HCl 10 MG CAPSULE PO (20:45)
--- NOTE | 2020-09-16 21:49 | MHC.CM.ED ---
CM met with pt via day porter, Bengali speaking. Pt tells CM she lives with her , she feels safe at home, he helps a little bit, she uses a walker and he drives her to Dr. Santos. Pt states she has [facility], she thinks, 3 times a week for medications and vital signs. Pt tells CARLI she had one dose of the Covid vaccine [place] [facility] not receive a vaccination card and she doesn't know what brand. Pt states she is very weak and feels she needs STR. Has been to STR, but cannot remember where. Pt aware of Plan of Care: PT evaluation in the am and pending recommendations, may have STR or Home PT. Pt agrees and understands she will stay overnight in the ED. Pt request STR referrals be made in [facility]. Referrals will be placed in [employer]. CM to follow for D/C needs.
--- NOTE | 2020-09-16 22:14 | MHC.CM.ED ---
Referrals placed at [facility], [facility], Evan Nelson. CM to follow for d/c needs.
[2020-09-17 06:27] VITALS: BP 116/67; PULSE 72; RESP 16; TEMP 37.2; O2SAT 93
[2020-09-17 07:23] VITALS: BP 116/67; PULSE 72; O2SAT 93
[2020-09-17 08:32] VITALS: BP 109/57; PULSE 69; RESP 18; O2SAT 94
[2020-09-17] MEDS: ondansetron HCL 4 MG/2 ML VIAL IVPUSH (09:08)
[2020-09-17] MEDS: fentaNYL 25 MCG PATCH.TD72 TRANSDERMA (09:08)
[2020-09-17] MEDS: FLUoxetine HCl 20 MG CAPSULE 40 MG PO (09:09)
--- NOTE | 2020-09-17 09:31 | MHC.CM.ED ---
Patient remains in ER. Physical therapy eval completed. Short term rehab is recommended. Patient has been to [facility] in the past. They're are willing to offer a bed. Patient wants to return to [facility]. Evan Nation made aware. Updated clinicals sent via [employer]. Continue to monitor for d/c needs.
== END 2020-09-17 12:08 | disposition skilled nursing facility (03) ==
PROVIDERS: Nurse Practitioner Family; Emergency Provider Emergency Medicine; PCP Internal Medicine
DX: K52.9 Noninfective gastroenteritis and colitis, unspecified (principal); R10.9 Unspecified abdominal pain; R06.02 Shortness of breath; R53.1 Weakness; Z20.822 Contact with and (suspected) exposure to COVID-19; Z79.899 Other long term (current) drug therapy
CPT/HCPCS: 36415; 74176; 80048; 80076; 81003; 82272; 83690; 85025; 85610; 87635; 93005; 96372; 96374; 97162; 99285; J2270; J2405; Q0163

== ENCOUNTER 2020-09-18 04:37 | Outpatient (REF) | payer MEDICARE, MEDICAID, SELFPAY ==
[2020-09-18 05:13] LABS: Hematocrit 43.4 % (37-47); Hemoglobin 13.2 g/dl (12.0-16.0); Mean Corpuscular HGB Conc 30.4 g/dl (31.0-35.0); Mean Corpuscular Hemoglobin 26.8 pg (27.0-33.0); Mean Platelet Volume 10.4 fL (9.4-12.3); Platelet Count 278 X10*3/uL (160-400); Red Blood Count 4.93 X10*6/uL (4.20-5.50); Red Cell Distribution Width 14.6 % (11.0-16.0); White Blood Count 7.9 X10*3/uL (4.8-10.8)
[2020-09-18 05:40] LABS: Alanine Aminotransferase 8 U/L (0-31); Albumin Level 3.6 g/dL (3.5-5.0); Alkaline Phosphatase 91 U/L (39-117); Anion Gap 10 (12-20); Aspartate Amino Transferase 10 U/L (5-31); Bilirubin Total 0.3 mg/dL (0.0-1.0); Blood Urea Nitrogen 12 mg/dL (9-16); Calcium 8.5 mg/dL (8.4-10.2); Carbon Dioxide 32 mmol/L (22-29); Chloride 106 mmol/L (96-108); Estimated Glomerular Filt Rate > 60; Glucose Random 96 mg/dL (60-115); Potassium 4.1 mmol/L (3.3-5.1); Sodium 144 mmol/L (135-145); Total Protein 5.8 g/dL (6.5-8.0)
== END 2020-09-18 04:38 | disposition home or self-care (01) ==
LOC: HO.MMNH2L 04:37
PROVIDERS: Visit Provider Family Medicine
DX: M62.81 Muscle weakness (generalized) (principal); E11.9 Type 2 diabetes mellitus without complications; T81.40XA Infection following a procedure, unspecified, initial encounter
CPT/HCPCS: 36415; 80053; 85027

== ENCOUNTER 2020-09-19 06:13 | Outpatient (REF) | payer MEDICARE, MEDICAID, SELFPAY ==
[2020-09-19 06:31] LABS: Glucose Urine UA NEG (NEG); Leukocyte Esterase Urine 1+ (NEG); Nitrite Urine POS (NEG); Specific Gravity - Urine >= 1.030 (1.005-1.025); Urine Blood NEG (NEG); Urine Ketones NEG (NEG); Urine Protein NEG (NEG-TRACE)
[2020-09-19 06:33] LABS: Appearance Urine CLOUDY; Color Urine YELLOW
[2020-09-19 06:43] LABS: Amorphous Sediment Urine 3+ /LPF; Bacteria Urine 2+ /LPF; Calcium Oxalate Crystals Urine 1+ /LPF; Mucus Urine 2+ /LPF; RBC Urine 0-2 /HPF (0); Squamous Epithelial Cell Urine TRACE /LPF
== END 2020-09-19 06:14 | disposition home or self-care (01) ==
LOC: HO.MMNH2L 06:13
PROVIDERS: Visit Provider Family Medicine
DX: N39.0 Urinary tract infection, site not specified (principal)
CPT/HCPCS: 81001; 87086; 87088; 87186

== ENCOUNTER 2020-09-21 | Outpatient (REF) | payer MEDICARE, MEDICAID, SELFPAY ==
[2020-09-21 06:54] LABS: Hematocrit 41.9 % (37-47); Hemoglobin 13.1 g/dl (12.0-16.0); Mean Corpuscular HGB Conc 31.3 g/dl (31.0-35.0); Mean Corpuscular Hemoglobin 26.9 pg (27.0-33.0); Mean Platelet Volume 10.6 fL (9.4-12.3); Platelet Count 284 X10*3/uL (160-400); Red Blood Count 4.87 X10*6/uL (4.20-5.50); Red Cell Distribution Width 14.4 % (11.0-16.0); White Blood Count 8.1 X10*3/uL (4.8-10.8)
[2020-09-21 07:40] LABS: Alanine Aminotransferase 8 U/L (0-31); Albumin Level 3.7 g/dL (3.5-5.0); Alkaline Phosphatase 92 U/L (39-117); Anion Gap 10 (12-20); Aspartate Amino Transferase 11 U/L (5-31); Bilirubin Total 0.6 mg/dL (0.0-1.0); Blood Urea Nitrogen 11 mg/dL (9-16); Calcium 8.9 mg/dL (8.4-10.2); Carbon Dioxide 32 mmol/L (22-29); Chloride 103 mmol/L (96-108); Estimated Glomerular Filt Rate > 60; Glucose Random 95 mg/dL (60-115); Potassium 4.2 mmol/L (3.3-5.1); Sodium 141 mmol/L (135-145); Total Protein 5.9 g/dL (6.5-8.0)
== END 2020-09-21 00:01 | disposition home or self-care (01) ==
LOC: HO.MMNH2L
PROVIDERS: Visit Provider Family Medicine
DX: T81.40XA Infection following a procedure, unspecified, initial encounter (principal); M62.81 Muscle weakness (generalized); E11.9 Type 2 diabetes mellitus without complications
CPT/HCPCS: 36415; 80053; 85027

== ENCOUNTER 2020-09-29 00:21 | Outpatient (REF) | payer MEDICARE, MEDICAID, SELFPAY ==
[2020-09-29 07:16] LABS: Hematocrit 42.8 % (37-47); Mean Corpuscular HGB Conc 30.4 g/dl (31.0-35.0); Mean Corpuscular Hemoglobin 26.6 pg (27.0-33.0); Mean Corpuscular Volume 87.7 fL (80-98); Mean Platelet Volume 10.8 fL (9.4-12.3); Platelet Count 250 X10*3/uL (160-400); Red Blood Count 4.88 X10*6/uL (4.20-5.50); Red Cell Distribution Width 14.4 % (11.0-16.0); White Blood Count 7.2 X10*3/uL (4.8-10.8)
[2020-09-29 07:29] LABS: Alanine Aminotransferase 9 U/L (0-31); Albumin Level 3.6 g/dL (3.5-5.0); Alkaline Phosphatase 95 U/L (39-117); Anion Gap 10 (12-20); Aspartate Amino Transferase 11 U/L (5-31); Bilirubin Total 0.4 mg/dL (0.0-1.0); Blood Urea Nitrogen 13 mg/dL (9-16); Calcium 8.7 mg/dL (8.4-10.2); Carbon Dioxide 34 mmol/L (22-29); Chloride 103 mmol/L (96-108); Estimated Glomerular Filt Rate > 60; Glucose Random 99 mg/dL (60-115); Potassium 4.6 mmol/L (3.3-5.1); Sodium 142 mmol/L (135-145); Total Protein 5.6 g/dL (6.5-8.0)
== END 2020-09-29 00:22 | disposition home or self-care (01) ==
LOC: HO.MMNH2L 00:21
PROVIDERS: Visit Provider Family Medicine
DX: M62.81 Muscle weakness (generalized) (principal); T81.40XA Infection following a procedure, unspecified, initial encounter; E11.9 Type 2 diabetes mellitus without complications
CPT/HCPCS: 36415; 80053; 85027

== ENCOUNTER 2020-10-05 00:46 | Outpatient (REF) | payer MEDICARE, MEDICAID, SELFPAY | END 2020-10-05 00:47 | disposition home or self-care (01) | LOC: HO.MMNH2L 00:46 | PROVIDERS: Visit Provider Family Medicine | DX: Z13.89 Encounter for screening for other disorder (principal) ==

== ENCOUNTER 2020-10-19 11:35 | Emergency (ER) | payer MEDICARE, MEDICAID, SELFPAY ==
[2020-10-19] VITALS (9 sets, daily range): BP systolic 88–112; BP diastolic 52–69; PULSE 61–75; RESP 14–18; TEMP 36.5–37.1; O2SAT 92–99; BMI 29.3
--- NOTE | ~2020-10-19 | XR_ITS ---
EXAMINATION: XR CHEST CLINICAL INFORMATION: Near syncope COMPARISON: Chest radiographs 08/18/2020, 05/22/2020, 05/05/2018. TECHNIQUE: 2 views of the chest were obtained. FINDINGS: There is fine linear disc atelectasis on right adjacent to minor fissure similar to previous exam 08/18/2020. The lungs otherwise clear. There is no lobar or segmental airspace consolidation or groundglass opacity. The heart is normal in size. The vascularity is normal. There is no vascular congestion or effusion. The costophrenic sulci are clear. The hilar and mediastinal contours and bony structures are unremarkable. XR/XR chest 2V IMPRESSION: Disc atelectasis on right similar to 08/18/2020. No acute intrathoracic disease.
--- NOTE | ~2020-10-19 | CT_ITS ---
EXAMINATION: CT HEAD WITHOUT CONTRAST CLINICAL INFORMATION: Syncope COMPARISON: CT head 05/11/2019 TECHNIQUE: Contiguous axial imaging was performed from the skull base to vertex without intravenous administration of contrast. Additional 2-D coronal and sagittal reformatted images are generated on the CT workstation and uploaded to PACS. This CT examination was performed using dose optimization techniques as appropriate, variously including the following: *Automated exposure control *Adjustment of mA and/or kV according to patient size (this includes techniques or standardized protocols for targeted exams where dose is matched to indication/reason for exam; i.e. extremities or head) *Use of iterative reconstruction technique DLP: 592 mGy-cm FINDINGS: There is no intracranial hemorrhage, hematoma, or extra-axial fluid collection. The ventricles are normal in size. There is no hydrocephalus, edema, or mass effect. The felipe-white matter differentiation appears symmetric. There is no visible acute territorial infarct or mass lesion. There is some left parasagittal dural calcification again noted as incidental finding. The calvarium appears intact. There is no pneumocephalus or orbital emphysema. The visualized sinuses and middle ears and mastoid air cells show no significant mucosal thickening. There are no air-fluid levels. CT/CT head/brain wo con IMPRESSION: No acute intracranial abnormality.
--- NOTE | 2020-10-19 11:59 | ED_ITS ---
HPI - Dizziness General Chief Complaint: Weakness <Vandana Suarez NP - Last Filed: 10/19/20 16:55> Stated Complaint: DIZZY AND WEAK X'S 1 DAY PER EMS <Vandana Suarez NP - Last Filed: 10/19/20 16:55> Time Seen by Provider: 10/19/20 11:40 <Vandana Suarez NP - Last Filed: 10/19/20 16:55> Source: EMS and white work cleaner <Vandana Suarez NP - Last Filed: 10/19/20 16:55> Mode of arrival: EMS <Vandana Suarez NP - Last Filed: 10/19/20 16:55> Limitations: no limitations and language barrier <Vandana Suarez NP - Last Filed: 10/19/20 16:55> History of Present Illness HPI Narrative: 65-year-old female with a past medical history of arthritis, asthma, diabetes, multiple abdominal surgeries here with complaints of near syncope. Per patient she has had generalized weakness since yesterday with associated chest pain. Also c/o chronic low back and generalized abdominal pain. Today she was at [facility] for an evaluation and when the nurse came into the room she stood up and felt very dizzy and felt like her vision went black and fell but was caught by the nurse. No LOC. no head injury or strike. On arrival to the ER she is complaining of feeling generally weak, lightheaded with chest/back and abdominal pain. No vomiting or diarrhea or vision changes. No headache. No anticoagulation use. Of note, patient seen in this emergency department September 16 for complaints of back and abdominal pain. She had labs and a CT scan which showed no acute finding. At that time she was complaining of some social problems at home with her as well as general weakness and was placed on a short-term care facility for a brief amount of time. The patient tells me she did not find this helpful as several days later her wanted her discharge and she did leave with him. She does take and oxycodone throughout the day for her chronic back and abdominal pain. <Vandana Suarez NP - Last Filed: 10/19/20 16:55> Related Data Home Medications: Home Medications Medication Instructions Recorded Confirmed dicyclomine 10 mg PO TID PRN 02/17/20 10/19/20 fluoxetine 40 mg PO QAM 02/17/20 10/19/20 oxycodone-acetaminophen 1 tab PO BID PRN 02/17/20 10/19/20 tiotropium bromide [Spiriva 2 puff INHALATION DAILY 02/17/20 10/19/20 Respimat] alprazolam 1 tab PO BID 09/16/20 10/19/20 gabapentin 100 mg PO BID 10/19/20 10/19/20 insulin lispro [Humalog KwikPen 28 unit SUBCUT TID 10/19/20 10/19/20 Insulin] sennosides [senna] 8.6 mg PO TID PRN 10/19/20 10/19/20 Previous Rx's Medication Instructions Recorded fentanyl 1 patch TRANSDERMAL Q72H #5 ea 09/17/20 naloxone [Narcan] 4 mg INTRANASAL Q3M PRN #2 ea 09/17/20 <Vandana Suarez NP - Last Filed: 10/19/20 16:55> Allergies/Adverse Reactions: Allergies Allergy/AdvReac Type Severity Reaction Status Date / Time aspirin [Aspirin] Allergy Intermediate STOMACH Verified 05/22/20 16:41 UPSET Iodinated Contrast Media Allergy Unknown ITCHING Verified 05/22/20 16:41 [IV Dye, Iodine Containing Contrast ] shellfish derived Allergy Unknown UNKNOWN Verified 05/22/20 16:41 [SHELLFISH DERIVED] SEAFOOD Allergy Unknown UNKNOWN Uncoded 01/16/20 16:22 <Vandana Suarez NP - Last Filed: 10/19/20 16:55> Review of Systems Review of Systems: Yes all other systems are reviewed and are negative <Vandana Suarez NP - Last Filed: 10/19/20 16:55> Constitutional: Constitutional: Reports no additional constitutional complaints, Denies body ache(s), Denies chills, Denies fever(s), Denies headache(s) and Reports weakness <Vandana Suarez NP - Last Filed: 10/19/20 16:55> Eyes: Eyes: Reports no additional eye complaints and Denies change in vision <Vandana Suarez NP - Last Filed: 10/19/20 16:55> ENT: Reports system reviewed and no additional complaints, except as documented, Reports dizziness, Denies headache(s), Denies nasal congestion, Denies nasal discharge and Denies neck pain <Vandana Suarez NP - Last Filed: 10/19/20 16:55> Cardiovascular: Cardiovascular: Reports no additional cardiovascular complaints, Reports chest pain, Denies leg edema and Denies dyspnea <Vandana Suarez NP - Last Filed: 10/19/20 16:55> Respiratory: Respiratory: Reports no additional respiratory complaints, Denies cough and Denies dyspnea <Vandana Suarez NP - Last Filed: 10/19/20 16:55> Gastrointestinal: Gastrointestinal: Reports no additional gastrointestinal complaints, Reports abdominal pain, Denies diarrhea, Denies nausea and Denies vomiting <Vandana Suarez NP - Last Filed: 10/19/20 16:55> Genitourinary: Genitourinary: Reports no additional female genitourinary co mplaints and Denies urinary incontinence <Vandana Suarez NP - Last Filed: 10/19/20 16:55> Musculoskeletal: Musculoskeletal: Reports no additional musculoskeletal complaints, Reports back pain, Denies arthralgias, Denies joint swelling, Denies neck pain, Denies numbness and Denies tingling <Vandana Suarez NP - Last Filed: 10/19/20 16:55> Integumentary/Breasts: Skin/Breast: Reports system reviewed and no additional complaints, except as docu and Denies rash <Vandana Suarez NP - Last Filed: 10/19/20 16:55> Neurologic: Reports system reviewed and no additional complaints, except as documented, Denies Abnormal speech present, Reports dizziness, Denies headache(s), Denies numbness, Denies tingling and Reports weakness <Vandana Suarez NP - Last Filed: 10/19/20 16:55> PMFSH Past Medical History Attestation statement: The following information was validated with the patient. <SARTHAK Eastman Last Filed: 10/19/20 16:55> Source: old records reviewed and nursing notes reviewed <Vandana Suarez NP - Last Filed: 10/19/20 16:55> Medical History: Medical History Acute arthritis Asthma Chronic back pain Diabetes Hx of intestinal obstruction <Vandana Suarez NP - Last Filed: 10/19/20 16:55> Surgical History: Surgical History Hx of cholecystectomy Hx of hysterectomy <Vandana Suarez NP - Last Filed: 10/19/20 16:55> Social History Social History: Social History Alcohol intake: never Advance Directives: Yes Advance Directives Information Provided: No Advance Directives on File: No <Vandana Suarez NP - Last Filed: 10/19/20 16:55> Physical Exam Vital Signs: Vital Signs: Last Vital Signs Temp 97.9 F 10/19/20 18:07 Pulse 67 10/20/20 08:19 Resp 12 10/20/20 05:13 BP 101/69 10/20/20 08:19 Pulse Ox 95 10/20/20 07:21 Body Mass Index 29.3 <Vandana Suarez NP - Last Filed: 10/19/20 16:55> Vital Signs: Last Vital Signs Temp 97.9 F 10/19/20 18:07 Pulse 67 10/20/20 08:19 Resp 12 10/20/20 05:13 BP 101/69 10/20/20 08:19 Pulse Ox 95 10/20/20 07:21 Body Mass Index 29.3 <Ramón Parker MD - Last Filed: 10/20/20 08:50> Const: General: cooperative, healthy appearing, comfortable and no acute distress <Vandana Suarez NP - Last Filed: 10/19/20 16:55> Orientation/consciousness: patient oriented x3 <Vandana Suarez NP - Last Filed: 10/19/20 16:55> Limitations: no limitations <Vandana Suarez NP - Last Filed: 10/19/20 1 6:55> HENMT: Head: Yes normal to inspection <Vandana Suarez NP - Last Filed: 10/19/20 16:55> Ears: hearing grossly normal bilaterally <Vandana Suarez NP - Last Filed: 10/19/20 16:55> General nose exam: Normal external nose present <Vandana Suarez NP - Last Filed: 10/19/20 16:55> Face and sinus: Yes normal facial exam <Vandana Suarez NP - Last Filed: 10/19/20 16:55> Mouth: Normal oral and palatal mucosa present <Vandana Suarez NP - Last Filed: 10/19/20 16:55> Throat: Yes posterior oropharynx normal <Vandana Suarez NP - Last Filed: 10/19/20 16:55> Eyes: General: appearance normal, both eyes and all related structures <Vandana Suarez NP - Last Filed: 10/19/20 16:55> Pupils: Equal, round and reactive pupils present <Vandana Suarez NP - Last Filed: 10/19/20 16:55> Neck: Neck: Yes normal visual inspection <Vandana Suarez NP - Last Filed: 10/19/20 16:55> Chest: Chest palpation & inspection: normal inspection of the chest and tenderness (mild tendernes to central chest to palp. no ecchymosis or crepitus ) <Vandana Suarez NP - Last Filed: 10/19/20 16:55> Resp: Effort & Inspection: normal respiratory effort <Vandana Suarez NP - Last Filed: 10/19/20 16:55> Auscultation: clear to auscultation bilaterally <Vandana Suarez NP - Last Filed: 10/19/20 16:55> Cardio: Rate: regular rate <Vandana Suarez NP - Last Filed: 10/19/20 16:55> Rhythm: regular rhythm <Vandana Suarez NP - Last Filed: 10/19/20 16:55> Peripheral pulses: Peripheral pulses 2+ throughout <Vandana Suarez NP - Last Filed: 10/19/20 16:55> GI: Other: Unable to illicit abdominal pain on exam <Vandana Suarez NP - Last Filed: 10/19/20 16:55> Inspection: Yes normal to inspection <Vandana Suarez NP - Last Filed: 10/19/20 16:55> Palpation (GI): Soft to palpation and nontender <Vandana Suarez NP - Last Filed: 10/19/20 16:55> Auscultation: normal bowel sounds <Vandana Suarez NP - Last Filed: 10/19/20 16:55> Back/Spine/Pelvis: Other: Lower lumbar and soft tissue tenderness with no step-offs or deformities <Vandana Suarez NP - Last Filed: 10/19/20 16:55> Thoracic/Lumbar Spine: thoracic and lumbar spine normal to inspection <Vandana Suarez NP - Last Filed: 10/19/20 16:55> Skin: General skin exam: no rashes or lesions noted <Vandana Suarez NP - Last Filed: 10/19/20 16:55> Neuro: Other: strength 4/5 all four extremities <Vandana Suarez NP - Last Filed: 10/19/20 16:55> General: patient oriented x3, no focal motor deficits, normal sensation to monofilament and Unable to assess gait <Vandana Suarez NP - Last Filed: 10/19/20 16:55> Cranial nerves: Yes CN's II-XII intact bilaterally, Yes Equal, round and reactive pupils present, Yes Bilaterally intact EOM present, Yes Nystagmus not present, Yes Normal facial strength present and Yes Midline tongue present <Vandana Suarez NP - Last Filed: 10/19/20 16:55> Cognition (Neuro): normal cognition <Vandana Suarez NP - Last Filed: 10/19/20 16:55> Speech: No Abnormal speech present <Vandana Suarez NP - Last Filed: 10/19/20 16:55> Gait exam (Neuro): Unable to assess gait <Vandana Suarez NP - Last Filed: 10/19/20 16:55> Sensory Exam: Normal double simultaneous stimulation for sensation <Vandana Suarez NP - Last Filed: 10/19/20 16:55> Coordination: [id number] test normal and [id number] test normal <Vandana Suarez NP - Last Filed: 10/19/20 16:55> Extrem: General: Yes normal to inspection <Vandana Suarez NP - Last Filed: 10/19/20 16:55> Course Course Course Narrative: 65-year-old female here with constellation of symptoms which include chest, back, abdominal pain with generalized weakness for the last 2 days now with a witnessed near syncopal episode at [facility] with no head strike or loss of consciousness. HD stable. Normal neuro exam. Will need labs, EKG, CXR, CT head, orthostatics. 1515-imaging unremarkable. Labs including troponin are unremarkable. Due to reports of near syncope just [employer] SUPER[employer] repeat 3 hour troponin. Orthostatics mildly positive. Nursing having difficulty with IV access. Patient feeling improved so can orally rehydrate. urine pending. 1645-UA negative. Repeat troponin pending. Patient does not feel comfortable going home and feels generally weak and would like to go back to [facility] as she feels this was helpful for her in the past. PT/CM consults ordered. Nursing to verify medications and perform COVID screening. 1700-Sign out to Javier NON GARMENT SEWING MACHINE OPERATOR pending above. <Vandana uSarez NP - Last Filed: 10/19/20 16:55> MDM - Dizziness MDM Narrative Medical decision making narrative: acs, cva, electrolyte abnormality, anemia Less likely acs with unchanged EKG with noischemic findings and troponin x 2 negative Less likely CVA with no focal neuro deficits, negative CT <Vandana Suarez NP - Last Filed: 10/19/20 16:55> Differential Diagnosis Differential diagnosis: Likely orthostatic hypotension <Vandana Suarez NP - Last Filed: 10/19/20 16:55> Medical Records Attestation: I reviewed the patient's medical records. <Vandana Suarez NP - Last Filed: 10/19/20 16:55> Lab Data Attestation: I reviewed the patient's lab results. <Vandana Suarez NP - Last Filed: 10/19/20 16:55> Result diagrams: : 10/19/20 13:23 10/19/20 13:23 <Vandana Suarez NP - Last Filed: 10/19/20 16:55> Labs: Lab Results 10/19/20 10/19/20 10/19/20 Range/Units 12:20 13:23 13:23 WBC 10.0 (4.8-10.8) X10*3/uL RBC 4.72 (4.20-5.50) X10*6/uL Hgb 12.8 (12.0-16.0) g/dl Hct 40.5 (37-47) % MCV 85.8 (80-98) fL MCH 27.1 (27.0-33.0) pg MCHC 31.6 (31.0-35.0) g/dl RDW 14.8 (11.0-16.0) % Plt Count 276 (160-400) X10*3/uL MPV 10.1 (9.4-12.3) fL Immature Gran % (Auto) 0.4 (0.0-0.4) % Neut % (Auto) 60.9 (45-73) % Lymph % (Auto) 30.8 (20-40) % Dickson % (Auto) 7.2 (2-11) % Eos % (Auto) 0.4 (0-4) % Baso % (Auto) 0.3 (0-2) % Lymph # (Auto) 3.1 (1.2-4.9) X10*3/uL Dickson # (Auto) 0.7 (0.1-1.2) X10*3/uL Eos # (Auto) 0.0 (0.0-0.4) X10*3/uL Baso # (Auto) 0.0 (0.0-0.2) X10*3/uL Abs Immat Gran (auto) 0.04 H (0.00-0.03) X10*3/uL Absolute Neuts (auto) 6.1 (2.0-8.3) X10*3/uL Absolute Nucleated RBC 0.000 (0.0-0.012) X10*3/uL Nucleated RBC % (auto) 0.0 (0.0-0.2) /100WBC Sodium 142 (135-145) mmol/L Potassium 3.5 D (3.3-5.1) mmol/L Chloride 109 H (96-108) mmol/L Carbon Dioxide 23 (22-29) mmol/L Anion Gap 14 (12-20) BUN 8 L (9-16) mg/dL Creatinine 0.69 (0.5-1.4) mg/dL Estim Creat Clear Calc 67.1 Estimated GFR > 60 POC Glucose 91 (60-115) mg/dL Random Glucose 72 (60-115) mg/dL Calcium 8.9 (8.4-10.2) mg/dL Magnesium (1.6-2.6) mg/dL Total Bilirubin 0.9 (0.0-1.0) mg/dL Direct Bilirubin 0.3 (0.0-0.5) mg/dL AST 15 (5-31) U/L ALT 6 (0-31) U/L Alkaline Phosphatase 98 (39-117) U/L Troponin I High Sens (<3.5-17.0) ng/L Total Protein 6.3 L (6.5-8.0) g/dL Albumin 3.9 (3.5-5.0) g/dL Urine Color Urine Appearance Urine pH (5.0-8.0) Ur Specific [place] (1.005-1.025) Urine Protein (NEG-TRACE) MG/DL Urine Glucose (UA) (NEG) MG/DL Urine Ketones (NEG) MG/DL Urine Blood (NEG) Urine Nitrite (NEG) Ur Leukocyte Esterase (NEG) COVID-19 (PAIGE) (Negative) COVID-19 Clin Com 10/19/20 10/19/20 10/19/20 Range/Units 13:23 13:24 15:20 WBC (4.8-10.8) X10*3/uL RBC (4.20-5.50) X10*6/uL Hgb (12.0-16.0) g/dl Hct (37-47) % MCV (80-98) fL MCH (27.0-33.0) pg MCHC (31.0-35.0) g/dl RDW (11.0-16.0) % Plt Count (160-400) X10*3/uL MPV (9.4-12.3) fL Immature Gran % (Auto) (0.0-0.4) % Neut % (Auto) (45-73) % Lymph % (Auto) (20-40) % Dickson % (Auto) (2-11) % Eos % (Auto) (0-4) % Baso % (Auto) (0-2) % Lymph # (Auto) (1.2-4.9) X10*3/uL Dickson # (Auto) (0.1-1.2) X10*3/uL Eos # (Auto) (0.0-0.4) X10*3/uL Baso # (Auto) (0.0-0.2) X10*3/uL Abs Immat Gran (auto) (0.00-0.03) X10*3/uL Absolute Neuts (auto) (2.0-8.3) X10*3/uL Absolute Nucleated RBC (0.0-0.012) X10*3/uL Nucleated RBC % (auto) (0.0-0.2) /100WBC Sodium (135-145) mmol/L Potassium (3.3-5.1) mmol/L Chloride (96-108) mmol/L Carbon Dioxide (22-29) mmol/L Anion Gap (12-20) BUN (9-16) mg/dL Creatinine (0.5-1.4) mg/dL Estim Creat Clear Calc Estimated GFR POC Glucose (60-115) mg/dL Random Glucose (60-115) mg/dL Calcium (8.4-10.2) mg/dL Magnesium 2.2 (1.6-2.6) mg/dL Total Bilirubin (0.0-1.0) mg/dL Direct Bilirubin (0.0-0.5) mg/dL AST (5-31) U/L ALT (0-31) U/L Alkaline Phosphatase (39-117) U/L Troponin I High Sens < 3.5 (<3.5-17.0) ng/L Total Protein (6.5-8.0) g/dL Albumin (3.5-5.0) g/dL Urine Color YELLOW Urine Appearance HAZY Urine pH 5.5 (5.0-8.0) Ur Specific [place] >= 1.030 H (1.005-1.025) Urine Protein NEG (NEG-TRACE) MG/DL Urine Glucose (UA) NEG (NEG) MG/DL Urine Ketones 5 (NEG) MG/DL Urine Blood NEG (NEG) Urine Nitrite NEG (NEG) Ur Leukocyte Esterase NEG (NEG) COVID-19 (PAIGE) (Negative) COVID-19 Clin Com 10/19/20 10/19/20 10/19/20 Range/Units 16:16 17:14 22:05 WBC (4.8-10.8) X10*3/uL RBC (4.20-5.50) X10*6/uL Hgb (12.0-16.0) g/dl Hct (37-47) % MCV (80-98) fL MCH (27.0-33.0) pg MCHC (31.0-35.0) g/dl RDW (11.0-16.0) % Plt Count (160-400) X10*3/uL MPV (9.4-12.3) fL Immature Gran % (Auto) (0.0-0.4) % Neut % (Auto) (45-73) % Lymph % (Auto) (20-40) % Dickson % (Auto) (2-11) % Eos % (Auto) (0-4) % Baso % (Auto) (0-2) % Lymph # (Auto) (1.2-4.9) X10*3/uL Dickson # (Auto) (0.1-1.2) X10*3/uL Eos # (Auto) (0.0-0.4) X10*3/uL Baso # (Auto) (0.0-0.2) X10*3/uL Abs Immat Gran (auto) (0.00-0.03) X10*3/uL Absolute Neuts (auto) (2.0-8.3) X10*3/uL Absolute Nucleated RBC (0.0-0.012) X10*3/uL Nucleated RBC % (auto) (0.0-0.2) /100WBC Sodium (135-145) mmol/L Potassium (3.3-5.1) mmol/L Chloride (96-108) mmol/L Carbon Dioxide (22-29) mmol/L Anion Gap (12-20) BUN (9-16) mg/dL Creatinine (0.5-1.4) mg/dL Estim Creat Clear Calc Estimated GFR POC Glucose 101 (60-115) mg/dL Random Glucose (60-115) mg/dL Calcium (8.4-10.2) mg/dL Magnesium (1.6-2.6) mg/dL Total Bilirubin (0.0-1.0) mg/dL Direct Bilirubin (0.0-0.5) mg/dL AST (5-31) U/L ALT (0-31) U/L Alkaline Phosphatase (39-117) U/L Troponin I High Sens < 3.5 (<3.5-17.0) ng/L Total Protein (6.5-8.0) g/dL Albumin (3.5-5.0) g/dL Urine Color Urine Appearance Urine pH (5.0-8.0) Ur Specific [place] (1.005-1.025) Urine Protein (NEG-TRACE) MG/DL Urine Glucose (UA) (NEG) MG/DL Urine Ketones (NEG) MG/DL Urine Blood (NEG) Urine Nitrite (NEG) Ur Leukocyte Esterase (NEG) COVID-19 (PAIGE) Negative (Negative) COVID-19 Clin Com See Note <Vandana Suarez NP - Last Filed: 10/19/20 16:55> Lab Results 10/19/20 10/19/20 10/19/20 Range/Units 12:20 13:23 13:23 WBC 10.0 (4.8-10.8) X10*3/uL RBC 4.72 (4.20-5.50) X10*6/uL Hgb 12.8 (12.0-16.0) g/dl Hct 40.5 (37-47) % MCV 85.8 (80-98) fL MCH 27.1 (27.0-33.0) pg MCHC 31.6 (31.0-35.0) g/dl RDW 14.8 (11.0-16.0) % Plt Count 276 (160-400) X10*3/uL MPV 10.1 (9.4-12.3) fL Immature Gran % (Auto) 0.4 (0.0-0.4) % Neut % (Auto) 60.9 (45-73) % Lymph % (Auto) 30.8 (20-40) % Dickson % (Auto) 7.2 (2-11) % Eos % (Auto) 0.4 (0-4) % Baso % (Auto) 0.3 (0-2) % Lymph # (Auto) 3.1 (1.2-4.9) X10*3/uL Dickson # (Auto) 0.7 (0.1-1.2) X10*3/uL Eos # (Auto) 0.0 (0.0-0.4) X10*3/uL Baso # (Auto) 0.0 (0.0-0.2) X10*3/uL Abs Immat Gran (auto) 0.04 H (0.00-0.03) X10*3/uL Absolute Neuts (auto) 6.1 (2.0-8.3) X10*3/uL Absolute Nucleated RBC 0.000 (0.0-0.012) X10*3/uL Nucleated RBC % (auto) 0.0 (0.0-0.2) /100WBC Sodium 142 (135-145) mmol/L Potassium 3.5 D (3.3-5.1) mmol/L Chloride 109 H (96-108) mmol/L Carbon Dioxide 23 (22-29) mmol/L Anion Gap 14 (12-20) BUN 8 L (9-16) mg/dL Creatinine 0.69 (0.5-1.4) mg/dL Estim Creat Clear Calc 67.1 Estimated GFR > 60 POC Glucose 91 (60-115) mg/dL Random Glucose 72 (60-115) mg/dL Calcium 8.9 (8.4-10.2) mg/dL Magnesium (1.6-2.6) mg/dL Total Bilirubin 0.9 (0.0-1.0) mg/dL Direct Bilirubin 0.3 (0.0-0.5) mg/dL AST 15 (5-31) U/L ALT 6 (0-31) U/L Alkaline Phosphatase 98 (39-117) U/L Troponin I High Sens (<3.5-17.0) ng/L Total Protein 6.3 L (6.5-8.0) g/dL Albumin 3.9 (3.5-5.0) g/dL Urine Color Urine Appearance Urine pH (5.0-8.0) Ur Specific [place] (1.005-1.025) Urine Protein (NEG-TRACE) MG/DL Urine Glucose (UA) (NEG) MG/DL Urine Ketones (NEG) MG/DL Urine Blood (NEG) Urine Nitrite (NEG) Ur Leukocyte Esterase (NEG) COVID-19 (PAIGE) (Negative) COVID-19 Clin Com 10/19/20 10/19/20 10/19/20 Range/Units 13:23 13:24 15:20 WBC (4.8-10.8) X10*3/uL RBC (4.20-5.50) X10*6/uL Hgb (12.0-16.0) g/dl Hct (37-47) % MCV (80-98) fL MCH (27.0-33.0) pg MCHC (31.0-35.0) g/dl RDW (11.0-16.0) % Plt Count (160-400) X10*3/uL MPV (9.4-12.3) fL Immature Gran % (Auto) (0.0-0.4) % Neut % (Auto) (45-73) % Lymph % (Auto) (20-40) % Dickson % (Auto) (2-11) % Eos % (Auto) (0-4) % Baso % (Auto) (0-2) % Lymph # (Auto) (1.2-4.9) X10*3/uL Dickson # (Auto) (0.1-1.2) X10*3/uL Eos # (Auto) (0.0-0.4) X10*3/uL Baso # (Auto) (0.0-0.2) X10*3/uL Abs Immat Gran (auto) (0.00-0.03) X10*3/uL Absolute Neuts (auto) (2.0-8.3) X10*3/uL Absolute Nucleated RBC (0.0-0.012) X10*3/uL Nucleated RBC % (auto) (0.0-0.2) /100WBC Sodium (135-145) mmol/L Potassium (3.3-5.1) mmol/L Chloride (96-108) mmol/L Carbon Dioxide (22-29) mmol/L Anion Gap (12-20) BUN (9-16) mg/dL Creatinine (0.5-1.4) mg/dL Estim Creat Clear Calc Estimated GFR POC Glucose (60-115) mg/dL Random Glucose (60-115) mg/dL Calcium (8.4-10.2) mg/dL Magnesium 2.2 (1.6-2.6) mg/dL Total Bilirubin (0.0-1.0) mg/dL Direct Bilirubin (0.0-0.5) mg/dL AST (5-31) U/L ALT (0-31) U/L Alkaline Phosphatase (39-117) U/L Troponin I High Sens < 3.5 (<3.5-17.0) ng/L Total Protein (6.5-8.0) g/dL Albumin (3.5-5.0) g/dL Urine Color YELLOW Urine Appearance HAZY Urine pH 5.5 (5.0-8.0) Ur Specific [place] >= 1.030 H (1.005-1.025) Urine Protein NEG (NEG-TRACE) MG/DL Urine Glucose (UA) NEG (NEG) MG/DL Urine Ketones 5 (NEG) MG/DL Urine Blood NEG (NEG) Urine Nitrite NEG (NEG) Ur Leukocyte Esterase NEG (NEG) COVID-19 (PAIGE) (Negative) COVID-19 Clin Com 10/19/20 10/19/20 10/19/20 Range/Units 16:16 17:14 22:05 WBC (4.8-10.8) X10*3/uL RBC (4.20-5.50) X10*6/uL Hgb (12.0-16.0) g/dl Hct (37-47) % MCV (80-98) fL MCH (27.0-33.0) pg MCHC (31.0-35.0) g/dl RDW (11.0-16.0) % Plt Count (160-400) X10*3/uL MPV (9.4-12.3) fL Immature Gran % (Auto) (0.0-0.4) % Neut % (Auto) (45-73) % Lymph % (Auto) (20-40) % Dickson % (Auto) (2-11) % Eos % (Auto) (0-4) % Baso % (Auto) (0-2) % Lymph # (Auto) (1.2-4.9) X10*3/uL Dickson # (Auto) (0.1-1.2) X10*3/uL Eos # (Auto) (0.0-0.4) X10*3/uL Baso # (Auto) (0.0-0.2) X10*3/uL Abs Immat Gran (auto) (0.00-0.03) X10*3/uL Absolute Neuts (auto) (2.0-8.3) X10*3/uL Absolute Nucleated RBC (0.0-0.012) X10*3/uL Nucleated RBC % (auto) (0.0-0.2) /100WBC Sodium (135-145) mmol/L Potassium (3.3-5.1) mmol/L Chloride (96-108) mmol/L Carbon Dioxide (22-29) mmol/L Anion Gap (12-20) BUN (9-16) mg/dL Creatinine (0.5-1.4) mg/dL Estim Creat Clear Calc Estimated GFR POC Glucose 101 (60-115) mg/dL Random Glucose (60-115) mg/dL Calcium (8.4-10.2) mg/dL Magnesium (1.6-2.6) mg/dL Total Bilirubin (0.0-1.0) mg/dL Direct Bilirubin (0.0-0.5) mg/dL AST (5-31) U/L ALT (0-31) U/L Alkaline Phosphatase (39-117) U/L Troponin I High Sens < 3.5 (<3.5-17.0) ng/L Total Protein (6.5-8.0) g/dL Albumin (3.5-5.0) g/dL Urine Color Urine Appearance Urine pH (5.0-8.0) Ur Specific [place] (1.005-1.025) Urine Protein (NEG-TRACE) MG/DL Urine Glucose (UA) (NEG) MG/DL Urine Ketones (NEG) MG/DL Urine Blood (NEG) Urine Nitrite (NEG) Ur Leukocyte Esterase (NEG) COVID-19 (PAIGE) Negative (Negative) COVID-19 Clin Com See Note <Ramón Parker MD - Last Filed: 10/20/20 08:50> Imaging Data CT scan - head: Attestation: I personally reviewed and interpreted this imaging study as follows: <Vandana Suarez NP - Last Filed: 10/19/20 16:55> Radiologist's impression: FINDINGS: There is no intracranial hemorrhage, hematoma, or extra-axial fluid collection. The ventricles are normal in size. There is no hydrocephalus, edema, or mass effect. The fel[place]-white matter differentiation appears symmetric. There is no visible acute territorial infarct or mass lesion. There is some left parasagittal dural calcification again noted as incidental finding. The calvarium appears intact. There is no pneumocephalus or orbital emphysema. The visualized sinuses and middle ears and mastoid air cells show no significant mucosal thickening. There are no air-fluid levels. CT/CT head/brain wo con IMPRESSION: No acute intracranial abnormality. <Vandana Suarez NP - Last Filed: 10/19/20 16:55> Chest x-ray: Attestation: I personally reviewed and interpreted this imaging study as follows: <Vandana Suarez NP - Last Filed: 10/19/20 16:55> Radiologist's impression: FINDINGS: There is fine linear disc atelectasis on right adjacent to minor fissure similar to previous exam 08/18/2020. The lungs otherwise clear. There is no lobar or segmental airspace consolidation or groundglass opacity. The heart is normal in size. The vascularity is normal. There is no vascular congestion or effusion. The costophrenic sulci are clear. The hilar and mediastinal contours and bony structures are unremarkable. XR/XR chest 2V IMPRESSION: Disc atelectasis on right similar to 08/18/2020. No acute intrathoracic disease. <Vandana Suarez NP - Last Filed: 10/19/20 16:55> ECG Data Attestation: I personally reviewed and interpreted this ECG as follows: <Vandana Suarez NP - Last Filed: 10/19/20 16:55> ECG interpretation date: 10/19/20 <Vandana Suarez NP - Last Filed: 10/19/20 16:55> ECG interpretation time: 13:30 <Vandana Suarez NP - Last Filed: 10/19/20 16:55> Interpretation: Sinus rhythm with a rate of 62, normal SD, non specific sT changes <Vandana Suarez NP - Last Filed: 10/19/20 16:55> Discharge Plan Discharge Clinical Impression: Near syncope, Weakness <Vandana Suarez NP - Last Filed: 10/19/20 16:55> Patient Disposition: Xfer SNF <Vandana Suarez NP - Last Filed: 10/19/20 16:55> Instructions: Near Syncope (ED) <Vandana Suarez NP - Last Filed: 10/19/20 16:55> Additional Instructions: change Positions slowly increase fluids,. rest <Vandana Suarez NP - Last Filed: 10/19/20 16:55> Prescriptions: No Action fluoxetine 40 mg capsule 40 mg PO QAM RF: 0 oxycodone-acetaminophen 7.5-325 mg tablet 1 tab PO BID PRN (Reason: Pain) RF: 0 dicyclomine 10 mg capsule 10 mg PO TID PRN (Reason: Abdominal Pain) RF: 0 Spiriva Respimat 2.5 mcg/actuation mist 2 puff inhalation DAILY RF: 0 alprazolam 0.5 mg tablet 1 tab PO BID RF: 0 fentanyl 25 mcg/hr patch 72 hour 1 patch transdermal Q72H Qty: 5 RF: 0 Narcan 4 mg/actuation spray,non-aerosol 4 mg intranasal Q3M PRN (Reason: opioid overdose) Qty: 2 RF: 0 gabapentin 100 mg capsule 100 mg PO BID RF: 0 insulin lispro [Humalog KwikPen Insulin] 100 unit/mL insulin pen 28 unit subcut TID RF: 0 sennosides [senna] 8.6 mg Tablet 8.6 mg PO TID PRN (Reason: Constipation) RF: 0 <Vandana Suarez NP - Last Filed: 10/19/20 16:55> Referrals: Aye Sosa MD [Primary Care Provider] - 2 days <Vandana Suarez NP - Last Filed: 10/19/20 16:55>
[2020-10-19 12:23] LABS: Glucose, Whole Blood 91 mg/dL (60-115)
[2020-10-19 13:31] LABS: MANUAL DIFF FLAG NO
[2020-10-19 13:42] LABS: Basophils Percent Auto 0.3 % (0-2); Eosinophils Percent Auto 0.4 % (0-4); Hematocrit 40.5 % (37-47); Hemoglobin 12.8 g/dl (12.0-16.0); Imm Gran Abs Auto 0.04 X10*3/uL (0.00-0.03); Imm Gran Pct Auto 0.4 % (0.0-0.4); Lymphocytes Absolute Auto 3.1 X10*3/uL (1.2-4.9); Lymphocytes Percent Auto 30.8 % (20-40); Mean Corpuscular HGB Conc 31.6 g/dl (31.0-35.0); Mean Corpuscular Hemoglobin 27.1 pg (27.0-33.0); Mean Corpuscular Volume 85.8 fL (80-98); Mean Platelet Volume 10.1 fL (9.4-12.3); Monocytes Absolute Auto 0.7 X10*3/uL (0.1-1.2); Monocytes Percent Auto 7.2 % (2-11); Neutrophils Absolute Auto 6.1 X10*3/uL (2.0-8.3); Neutrophils Percent Auto 60.9 % (45-73); Platelet Count 276 X10*3/uL (160-400); Red Blood Count 4.72 X10*6/uL (4.20-5.50); Red Cell Distribution Width 14.8 % (11.0-16.0)
[2020-10-19 13:54] LABS: Magnesium 2.2 mg/dL (1.6-2.6)
[2020-10-19 14:11] LABS: Alanine Aminotransferase 6 U/L (0-31); Albumin Level 3.9 g/dL (3.5-5.0); Alkaline Phosphatase 98 U/L (39-117); Anion Gap 14 (12-20); Aspartate Amino Transferase 15 U/L (5-31); Bilirubin Direct 0.3 mg/dL (0.0-0.5); Bilirubin Total 0.9 mg/dL (0.0-1.0); Blood Urea Nitrogen 8 mg/dL (9-16); Calcium 8.9 mg/dL (8.4-10.2); Carbon Dioxide 23 mmol/L (22-29); Chloride 109 mmol/L (96-108); Creatinine Clr Calc Pharmacy 67.1; Estimated Glomerular Filt Rate > 60; Glucose Random 72 mg/dL (60-115); Potassium 3.5 mmol/L (3.3-5.1); Sodium 142 mmol/L (135-145); Total Protein 6.3 g/dL (6.5-8.0)
[2020-10-19 14:15] LABS: Troponin-I High Sensitivity < 3.5 ng/L (<3.5-17.0)
[2020-10-19 15:37] LABS: Glucose Urine UA NEG (NEG); Leukocyte Esterase Urine NEG (NEG); Nitrite Urine NEG (NEG); PH 5.5 (5.0-8.0); Specific Gravity - Urine >= 1.030 (1.005-1.025); Urine Blood NEG (NEG); Urine Ketones 5 MG/DL (NEG); Urine Protein NEG (NEG-TRACE)
[2020-10-19 15:38] LABS: Appearance Urine HAZY; Color Urine YELLOW
[2020-10-19 16:54] LABS: Troponin-I High Sensitivity < 3.5 ng/L (<3.5-17.0)
--- NOTE | 2020-10-19 17:08 | PC.NURSE ---
[facility] [phone]
[2020-10-19 17:47] LABS: COVID-19 Test Negative (Negative); IDNOW Serial# 9DD0AD1C
[2020-10-19] MEDS: oxyCODONE HCl Immed Release 5 MG TABLET 7.5 MG PO (18:50)
[2020-10-19] MEDS: Gabapentin 100 MG CAPSULE PO (21:20)
[2020-10-19] MEDS: ALPRAZolam 0.5 MG TABLET PO (21:20)
[2020-10-19 22:09] LABS: Glucose, Whole Blood 101 mg/dL (60-115)
--- NOTE | 2020-10-19 22:09 | PC.NURSE ---
poc 101 provider made aware and lispro 28 units held.
--- NOTE | 2020-10-19 22:54 | MHC.CM.ED ---
CM met with pt with medical equipment repair technician. Pt is R[place]an speaking only. Pt c/o back pain and weakness. Lives with , Joaquín Aden ([phone]) who is the HCP. Pt uses a walker. States doesn't help her much. Feels she needs STR. PT evaluation pending. Pt daughter, Cindy Banuelos ([phone]) is the supervising floorperson. Pt would like to go to [facility] for rehab if needed. Referral placed. CM to follow for d/c needs.
--- NOTE | 2020-10-19 22:55 | PC.NURSE ---
pt is a difficult iv stick, curtis rn's have tried and I also have tried and unable to obtain a iv at this time provider has been made aware.
[2020-10-20] VITALS (8 sets, daily range): BP systolic 99–119; BP diastolic 53–69; PULSE 59–78; RESP 12–16; O2SAT 93–96
--- NOTE | 2020-10-20 | ECG_ITS ---
Test Reason : CHEST PRESSURE Blood Pressure : / mmHG Vent. Rate : 061 BPM Atrial Rate : 061 BPM P-R Int : 138 ms QRS Dur : 076 ms QT Int : 432 ms P-R-T Axes : 065 033 -10 degrees QTc Int : 434 ms Normal sinus rhythm Normal ECG When compared with ECG of 16-SEP-2020 18:27, No significant change was found Referred By: Yoli Crespo Electronically Signed By:Jose F Gibson
[2020-10-20] MEDS: Insulin Lispro 100 UNIT/ML 3 ML VIAL 28 UNIT SUBCUT (08:16)
[2020-10-20] MEDS: FLUoxetine HCl 20 MG CAPSULE 40 MG PO (08:17)
[2020-10-20] MEDS: Gabapentin 100 MG CAPSULE PO (08:17)
[2020-10-20] MEDS: ALPRAZolam 0.5 MG TABLET PO (08:17)
--- NOTE | 2020-10-20 08:20 | PC.NURSE ---
sr on monitor, c/o chest tightness, ls dim w tight wheeze, spo2 100%, nad
[2020-10-20] MEDS: fentaNYL 25 MCG PATCH.TD72 TRANSDERMA (09:05)
[2020-10-20] MEDS: Albuterol Sulfate (0.083%) 2.5 MG/3 ML VIAL.NEB INHALE (09:07)
--- NOTE | 2020-10-20 09:21 | MHC.CM.ED ---
Patient remains in ER. Clinical updates sent to [facility]. Continue to monitor for d/c needs.
--- NOTE | 2020-10-20 11:37 | MHC.CM.ED ---
[facility] is able to offer a bed. Patient can leave at 1230pm. [facility]. Med nec with chart. Patient, Jonnie RN and Vandana RADIOGRAPHER ANGIOGRAM aware. Patient is active with [facility]. They're also aware. Continue to monitor for d/c needs.
--- NOTE | 2020-10-20 11:56 | PC.NURSE ---
Called report to [facility] to Radha ALVARADO. Per Radha they are familiar with the patient as she has been there before- questions answered, ambulance booked for a departure of 1230. Patient aware, calm and cooperative with this plan.
== END 2020-10-20 12:56 | disposition skilled nursing facility (03) ==
PROVIDERS: Nurse Practitioner Family; Emergency Provider Emergency Medicine; PCP Internal Medicine
DX: R55 Syncope and collapse (principal); R53.1 Weakness; I95.9 Hypotension, unspecified; J45.909 Unspecified asthma, uncomplicated; E11.9 Type 2 diabetes mellitus without complications; Z20.822 Contact with and (suspected) exposure to COVID-19; Z79.4 Long term (current) use of insulin; Z79.899 Other long term (current) drug therapy
CPT/HCPCS: 36415; 70450; 71046; 80048; 80076; 81003; 82947; 83735; 84484; 85025; 87635; 93005; 94640; 97161; 99285

== ENCOUNTER 2020-10-22 06:38 | Outpatient (REF) | payer SELFPAY ==
[2020-10-22 06:51] LABS: MANUAL DIFF FLAG NO
[2020-10-22 06:58] LABS: Basophils Absolute Auto 0.1 X10*3/uL (0.0-0.2); Basophils Percent Auto 0.7 % (0-2); Eosinophils Absolute Auto 0.1 X10*3/uL (0.0-0.4); Eosinophils Percent Auto 1.7 % (0-4); Hematocrit 42.5 % (37-47); Hemoglobin 13.3 g/dl (12.0-16.0); Imm Gran Abs Auto 0.03 X10*3/uL (0.00-0.03); Imm Gran Pct Auto 0.4 % (0.0-0.4); Lymphocytes Absolute Auto 3.6 X10*3/uL (1.2-4.9); Lymphocytes Percent Auto 50.4 % (20-40); Mean Corpuscular HGB Conc 31.3 g/dl (31.0-35.0); Mean Corpuscular Volume 86.4 fL (80-98); Monocytes Absolute Auto 0.5 X10*3/uL (0.1-1.2); Monocytes Percent Auto 6.6 % (2-11); Neutrophils Absolute Auto 2.8 X10*3/uL (2.0-8.3); Neutrophils Percent Auto 40.2 % (45-73); Platelet Count 255 X10*3/uL (160-400); Red Blood Count 4.92 X10*6/uL (4.20-5.50); Red Cell Distribution Width 14.1 % (11.0-16.0); White Blood Count 7.1 X10*3/uL (4.8-10.8)
[2020-10-22 07:32] LABS: Alanine Aminotransferase < 6 U/L (0-31); Albumin Level 3.9 g/dL (3.5-5.0); Alkaline Phosphatase 94 U/L (39-117); Anion Gap 10 (12-20); Aspartate Amino Transferase 13 U/L (5-31); Bilirubin Total 0.4 mg/dL (0.0-1.0); Blood Urea Nitrogen 10 mg/dL (9-16); Calcium 8.9 mg/dL (8.4-10.2); Carbon Dioxide 31 mmol/L (22-29); Chloride 105 mmol/L (96-108); Estimated Glomerular Filt Rate > 60; Glucose Random 89 mg/dL (60-115); Potassium 4.3 mmol/L (3.3-5.1); Sodium 142 mmol/L (135-145); Total Protein 6.1 g/dL (6.5-8.0)
== END 2020-10-22 06:39 | disposition home or self-care (01) ==
LOC: HO.MMNH2L 06:38
PROVIDERS: Visit Provider Family Medicine
DX: I10 Essential (primary) hypertension (principal)
CPT/HCPCS: 36415; 80053; 85025

== ENCOUNTER 2020-11-12 20:07 | Emergency (ER) | payer MEDICARE, MEDICAID, SELFPAY ==
[2020-11-12 20:36] VITALS: BP 103/57; BP 106/64; PULSE 85; PULSE 90; RESP 18; TEMP 37.4; O2SAT 96; O2SAT 97; BMI 23.1
[2020-11-12 20:44] LABS: Glucose, Whole Blood 145 mg/dL (60-115)
--- NOTE | 2020-11-12 21:16 | ED.GENADULT ---
HPI - General Adult General Chief complaint: Recheck/Abnormal Lab/Rx Stated complaint: nausea low blood sugar Time Seen by Provider: 11/12/20 21:15 Source: patient Mode of arrival: EMS Limitations: language barrier History of Present Illness HPI narrative: Patient's history of diabetes on insulin Humalog 28 units 3 times a day given by the [facility] for last 2 days patient has been having nausea and diarrhea not eating well but she took the insulin today was feeling weak EMS reached noticed her blood sugar was low oral dextrose was given a repeat POC was 113 in the ED on arrival patient's blood sugar was 145 no AMS was noticed by the EMS at this time patient is feeling better complaining of headache and back pain patient is supposed to be on Percocet 3 times a day , ran out of the tablet yesterday Related Data Home Medications Medication Instructions Recorded Confirmed dicyclomine 10 mg PO TID PRN 02/17/20 10/19/20 fluoxetine 40 mg PO QAM 02/17/20 10/19/20 oxycodone-acetaminophen 1 tab PO BID PRN 02/17/20 10/19/20 tiotropium bromide [Spiriva 2 puff INHALATION DAILY 02/17/20 10/19/20 Respimat] alprazolam 1 tab PO BID 09/16/20 10/19/20 gabapentin 100 mg PO BID 10/19/20 10/19/20 insulin lispro [Humalog KwikPen 28 unit SUBCUT TID 10/19/20 10/19/20 Insulin] sennosides [senna] 8.6 mg PO TID PRN 10/19/20 10/19/20 Previous Rx's Medication Instructions Recorded fentanyl 1 patch TRANSDERMAL Q72H #5 ea 09/17/20 naloxone [Narcan] 4 mg INTRANASAL Q3M PRN #2 ea 09/17/20 alprazolam [Xanax] 0.5 mg PO BID #4 tab 10/20/20 fentanyl 1 patch TRANSDERMAL Q72H #1 ea 10/20/20 oxycodone-acetaminophen [Percocet] 1 tab PO BID PRN #4 tab 10/20/20 Allergies Allergy/AdvReac Type Severity Reaction Status Date / Time aspirin [Aspirin] Allergy Intermediate STOMACH Verified 11/12/20 20:16 UPSET Iodinated Contrast Media Allergy Unknown ITCHING Verified 11/12/20 20:16 [IV Dye, Iodine Containing Contrast ] shellfish derived Allergy Unknown UNKNOWN Verified 11/12/20 20:16 [SHELLFISH DERIVED] SEAFOOD Allergy Unknown UNKNOWN Uncoded 01/16/20 16:22 Review of Systems Review of Systems: Constitutional : No Weight loss, No Fever, No Chills ENT/Mouth : No sore throat, No Rhinorrhea Eyes: No Eye Pain, No Swelling Cardiovascular : No Chest Pain, no palpitations Respiratory : No Cough, No Sputum, no shortness of breath Gastrointestinal : + Nausea, No Vomiting, + Diarrhea, No abdominal Pain, no black stools Genitourinary : No Dysuria, No Urinary Frequency Musculoskeletal : No joint pain, No Myalgias, No Joint Swelling Skin : No Skin Lesions, No rash Neuro : No Weakness, No Numbness, No Dizziness, No Headache Psych : No Anxiety/Panic, No Depression Heme/Lymph: No Bruising, No Lymphadenopathy Endocrine : No Polyuria, No Polydipsia All other systems reviewed and are negative [facility] Past Medical History Medical History Acute arthritis Asthma Chronic back pain Diabetes Hx of intestinal obstruction Surgical History Hx of cholecystectomy Hx of hysterectomy Social History Social History Alcohol intake: never Advance Directives: No Advance Directives Information Provided: Yes Physical Exam Vital Signs: Vital Signs: Last Vital Signs Temp 98.5 F 11/12/20 21:59 Pulse 68 11/12/20 22:57 Resp 15 11/13/20 00:51 BP 125/57 L 11/12/20 22:57 Pulse Ox 99 11/12/20 22:57 Body Mass Index 23.1 Appearance: Alert. Oriented X3. No acute distress. Eyes: PERRLA, No Nystagmus ENT: Pharynx normal. Oral Mucosa moist Neck: Normal inspection. Neck supple. CVS: Normal heart rate and rhythm. Pulses normal. Respiratory: No respiratory distress. Equal air entry bilateral, no wheezing/rales/rhonchi Abdomen: Soft and nontender. Bowel sounds are present, no mass palpable, no CVA tenderness Skin: Skin warm and dry. Normal skin color. Normal skin turgor. Extremities: No lower extremity edema. No calf tenderness Neuro: Oriented X 3. No motor deficit. No sensory deficit.No cerebellar signs , cranial nerves II-XII intact Medical Decision Making MDM Narrative Medical decision making narrative: Patient diabetic with decreased oral intake today but took her insulin came with hypoglycemia which improved after oral dextrose and p.o. fluids. Will discharge patient home advised to eat properly when taking insulin. Lab Data Lab results reviewed: Yes I reviewed the patient's lab results. Result diagrams: 11/12/20 21:42 11/12/20 22:13 Labs: Lab Results 11/12/20 11/12/20 11/12/20 Range/Units 20:11 21:42 22:13 WBC 11.0 H (4.8-10.8) X10*3/uL RBC 4.80 (4.20-5.50) X10*6/uL Hgb 13.2 (12.0-16.0) g/dl Hct 40.6 (37-47) % MCV 84.6 (80-98) fL MCH 27.5 (27.0-33.0) pg MCHC 32.5 (31.0-35.0) g/dl RDW 14.0 (11.0-16.0) % Plt Count 312 (160-400) X10*3/uL MPV 9.6 (9.4-12.3) fL Immature Gran % (Auto) 0.4 (0.0-0.4) % Neut % (Auto) 67.5 (45-73) % Lymph % (Auto) 24.8 (20-40) % [place] % (Auto) 6.8 (2-11) % Eos % (Auto) 0.2 (0-4) % Baso % (Auto) 0.3 (0-2) % Lymph # (Auto) 2.7 (1.2-4.9) X10*3/uL [place] # (Auto) 0.8 (0.1-1.2) X10*3/uL Eos # (Auto) 0.0 (0.0-0.4) X10*3/uL Baso # (Auto) 0.0 (0.0-0.2) X10*3/uL Abs Immat Gran (auto) 0.04 H (0.00-0.03) X10*3/uL Absolute Neuts (auto) 7.4 (2.0-8.3) X10*3/uL Absolute Nucleated RBC 0.000 (0.0-0.012) X10*3/uL Nucleated RBC % (auto) 0.0 (0.0-0.2) /100WBC Sodium 145 (135-145) mmol/L Potassium 3.3 D (3.3-5.1) mmol/L Chloride 112 H (96-108) mmol/L Carbon Dioxide 25 (22-29) mmol/L Anion Gap 11 L (12-20) BUN 7 L (9-16) mg/dL Creatinine 0.70 (0.5-1.4) mg/dL Estim Creat Clear Calc 69.1 Estimated GFR > 60 POC Glucose 145 H (60-115) mg/dL Random Glucose 83 (60-115) mg/dL Calcium 8.3 L D (8.4-10.2) mg/dL Total Bilirubin 0.5 (0.0-1.0) mg/dL Direct Bilirubin 0.2 (0.0-0.5) mg/dL AST 12 (5-31) U/L ALT 7 (0-31) U/L Alkaline Phosphatase 97 (39-117) U/L Total Protein 6.2 L (6.5-8.0) g/dL Albumin 3.9 (3.5-5.0) g/dL Lipase 12 (8-78) U/L 11/12/20 Range/Units 23:54 WBC (4.8-10.8) X10*3/uL RBC (4.20-5.50) X10*6/uL Hgb (12.0-16.0) g/dl Hct (37-47) % MCV (80-98) fL MCH (27.0-33.0) pg MCHC (31.0-35.0) g/dl RDW (11.0-16.0) % Plt Count (160-400) X10*3/uL MPV (9.4-12.3) fL Immature Gran % (Auto) (0.0-0.4) % Neut % (Auto) (45-73) % Lymph % (Auto) (20-40) % [place] % (Auto) (2-11) % Eos % (Auto) (0-4) % Baso % (Auto) (0-2) % Lymph # (Auto) (1.2-4.9) X10*3/uL [place] # (Auto) (0.1-1.2) X10*3/uL Eos # (Auto) (0.0-0.4) X10*3/uL Baso # (Auto) (0.0-0.2) X10*3/uL Abs Immat Gran (auto) (0.00-0.03) X10*3/uL Absolute Neuts (auto) (2.0-8.3) X10*3/uL Absolute Nucleated RBC (0.0-0.012) X10*3/uL Nucleated RBC % (auto) (0.0-0.2) /100WBC Sodium (135-145) mmol/L Potassium (3.3-5.1) mmol/L Chloride (96-108) mmol/L Carbon Dioxide (22-29) mmol/L Anion Gap (12-20) BUN (9-16) mg/dL Creatinine (0.5-1.4) mg/dL Estim Creat Clear Calc Estimated GFR POC Glucose 103 (60-115) mg/dL Random Glucose (60-115) mg/dL Calcium (8.4-10.2) mg/dL Total Bilirubin (0.0-1.0) mg/dL Direct Bilirubin (0.0-0.5) mg/dL AST (5-31) U/L ALT (0-31) U/L Alkaline Phosphatase (39-117) U/L Total Protein (6.5-8.0) g/dL Albumin (3.5-5.0) g/dL Lipase (8-78) U/L Discharge Plan Discharge Clinical Impression: Hypoglycemia associated with type 2 diabetes mellitus Patient Disposition: Home, Self-Care Instructions: Hypoglycemia in a Person with Diabetes (ED) Additional Instructions: Eat well while taking insulin Follow up with PCP Prescriptions: No Action fluoxetine 40 mg capsule 40 mg PO QAM RF: 0 oxycodone-acetaminophen 7.5-325 mg tablet 1 tab PO BID PRN (Reason: Pain) RF: 0 dicyclomine 10 mg capsule 10 mg PO TID PRN (Reason: Abdominal Pain) RF: 0 Spiriva Respimat 2.5 mcg/actuation mist 2 puff inhalation DAILY RF: 0 alprazolam 0.5 mg tablet 1 tab PO BID RF: 0 fentanyl 25 mcg/hr patch 72 hour 1 patch transdermal Q72H Qty: 5 RF: 0 Narcan 4 mg/actuation spray,non-aerosol 4 mg intranasal Q3M PRN (Reason: opioid overdose) Qty: 2 RF: 0 gabapentin 100 mg capsule 100 mg PO BID RF: 0 insulin lispro [Humalog KwikPen Insulin] 100 unit/mL insulin pen 28 unit subcut TID RF: 0 sennosides [senna] 8.6 mg Tablet 8.6 mg PO TID PRN (Reason: Constipation) RF: 0 alprazolam [Xanax] 0.5 mg tablet 0.5 mg PO BID Qty: 4 RF: 0 fentanyl 25 mcg/hr patch 72 hour 1 patch transdermal Q72H Qty: 1 RF: 0 oxycodone-acetaminophen [Percocet] 7.5-325 mg tablet 1 tab PO BID PRN (Reason: pain) Qty: 4 RF: 0
[2020-11-12 21:46] LABS: MANUAL DIFF FLAG NO
[2020-11-12 21:50] LABS: Basophils Percent Auto 0.3 % (0-2); Eosinophils Percent Auto 0.2 % (0-4); Hematocrit 40.6 % (37-47); Hemoglobin 13.2 g/dl (12.0-16.0); Imm Gran Abs Auto 0.04 X10*3/uL (0.00-0.03); Imm Gran Pct Auto 0.4 % (0.0-0.4); Lymphocytes Absolute Auto 2.7 X10*3/uL (1.2-4.9); Lymphocytes Percent Auto 24.8 % (20-40); Mean Corpuscular HGB Conc 32.5 g/dl (31.0-35.0); Mean Corpuscular Hemoglobin 27.5 pg (27.0-33.0); Mean Corpuscular Volume 84.6 fL (80-98); Mean Platelet Volume 9.6 fL (9.4-12.3); Monocytes Absolute Auto 0.8 X10*3/uL (0.1-1.2); Monocytes Percent Auto 6.8 % (2-11); Neutrophils Absolute Auto 7.4 X10*3/uL (2.0-8.3); Neutrophils Percent Auto 67.5 % (45-73); Platelet Count 312 X10*3/uL (160-400)
[2020-11-12] MEDS: 0.9 % Sodium Chloride 1,000 ML 999 ML IVCONT (21:55)
[2020-11-12] MEDS: ondansetron HCL 4 MG/2 ML VIAL IVPUSH (21:55)
[2020-11-12 21:59] VITALS: BP 122/62; PULSE 62; RESP 18; TEMP 36.9; O2SAT 97
[2020-11-12 22:49] LABS: Alanine Aminotransferase 7 U/L (0-31); Albumin Level 3.9 g/dL (3.5-5.0); Alkaline Phosphatase 97 U/L (39-117); Anion Gap 11 (12-20); Aspartate Amino Transferase 12 U/L (5-31); Bilirubin Direct 0.2 mg/dL (0.0-0.5); Bilirubin Total 0.5 mg/dL (0.0-1.0); Blood Urea Nitrogen 7 mg/dL (9-16); Calcium 8.3 mg/dL (8.4-10.2); Carbon Dioxide 25 mmol/L (22-29); Chloride 112 mmol/L (96-108); Creatinine Clr Calc Pharmacy 69.1; Estimated Glomerular Filt Rate > 60; Glucose Random 83 mg/dL (60-115); Lipase 12 U/L (8-78); Potassium 3.3 mmol/L (3.3-5.1); Sodium 145 mmol/L (135-145); Total Protein 6.2 g/dL (6.5-8.0)
--- NOTE | 2020-11-12 22:56 | PC.NURSE ---
pt continues to complain of fatigue and headaches which had been intermittent for months. given apple juice and crackers for glucose of 83 and as po trial for nausea. no distress at this time. is axox3. skin pwd.
[2020-11-12 22:57] VITALS: BP 125/57; PULSE 68; RESP 18; O2SAT 99
[2020-11-12 23:58] LABS: Glucose, Whole Blood 103 mg/dL (60-115)
[2020-11-13] VITALS: BP 125/57; PULSE 68; RESP 15; TEMP 36.9; O2SAT 99
[2020-11-13 00:51] VITALS: RESP 15
[2020-11-13] MEDS: Morphine Sulfate 2 MG/ML CARTRIDGE IVPUSH (00:51)
== END 2020-11-13 01:32 | disposition home or self-care (01) ==
PROVIDERS: Emergency Provider Internal Medicine; PCP Internal Medicine
DX: E11.649 Type 2 diabetes mellitus with hypoglycemia without coma (principal); M54.9 Dorsalgia, unspecified; J45.909 Unspecified asthma, uncomplicated; Z79.4 Long term (current) use of insulin; Z79.891 Long term (current) use of opiate analgesic; Z79.899 Other long term (current) drug therapy
CPT/HCPCS: 36415; 80048; 80076; 82947; 83690; 85025; 96361; 96374; 96375; 99284; J2270; J2405

== ENCOUNTER 2020-11-19 20:54 | Emergency (ER) | payer MEDICARE, MEDICAID, SELFPAY ==
[2020-11-19 21:18] VITALS: BP 105/70; BP 142/78; PULSE 80; PULSE 93; RESP 20; TEMP 37.3; O2SAT 95; O2SAT 98; BMI 27.4
[2020-11-19 23:58] LABS: Appearance Urine CLEAR; Color Urine YELLOW; Glucose Urine UA NEG (NEG); Leukocyte Esterase Urine NEG (NEG); Nitrite Urine NEG (NEG); Urine Blood NEG (NEG); Urine Ketones 5 MG/DL (NEG); Urine Protein NEG (NEG-TRACE)
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
--- NOTE | 2020-11-20 00:17 | ECG_ITS ---
Test Reason : DIZZINES Blood Pressure : / mmHG Vent. Rate : 063 BPM Atrial Rate : 063 BPM P-R Int : 144 ms QRS Dur : 084 ms QT Int : 436 ms P-R-T Axes : 060 026 019 degrees QTc Int : 446 ms Normal sinus rhythm Nonspecific ST abnormality Abnormal ECG When compared with ECG of 20-OCT-2020 08:10, No significant change was found Referred By: Yoli Crespo Electronically Signed By:SHAMIR HERNANDEZ MD
--- NOTE | 2020-11-20 00:31 | PC.NURSE ---
a/c tech at bedside for EKG and labs.
[2020-11-20] MEDS: LORazepam 1 MG TABLET PO (00:51)
--- NOTE | 2020-11-20 01:10 | PC.NURSE ---
Labs and Covid obtained by this RN. Labs obtained late as this RN was not made aware that pt was a difficult stick, labs unable to be obtained in Triage. Plan for PT/CM eval in the morning.
[2020-11-20 01:14] LABS: MANUAL DIFF FLAG NO
[2020-11-20 01:16] LABS: Basophils Percent Auto 0.3 % (0-2); Eosinophils Percent Auto 0.1 % (0-4); Hematocrit 46.7 % (37-47); Hemoglobin 14.7 g/dl (12.0-16.0); Imm Gran Abs Auto 0.05 X10*3/uL (0.00-0.03); Imm Gran Pct Auto 0.4 % (0.0-0.4); Lymphocytes Absolute Auto 2.6 X10*3/uL (1.2-4.9); Lymphocytes Percent Auto 20.7 % (20-40); Mean Corpuscular HGB Conc 31.5 g/dl (31.0-35.0); Mean Corpuscular Hemoglobin 27.8 pg (27.0-33.0); Mean Corpuscular Volume 88.4 fL (80-98); Mean Platelet Volume 10.6 fL (9.4-12.3); Monocytes Absolute Auto 0.6 X10*3/uL (0.1-1.2); Monocytes Percent Auto 4.4 % (2-11); Neutrophils Absolute Auto 9.2 X10*3/uL (2.0-8.3); Neutrophils Percent Auto 74.1 % (45-73); Platelet Count 276 X10*3/uL (160-400); Red Blood Count 5.28 X10*6/uL (4.20-5.50); Red Cell Distribution Width 14.2 % (11.0-16.0); White Blood Count 12.5 X10*3/uL (4.8-10.8)
[2020-11-20 01:31] LABS: COVID-19 Test Negative (Negative)
[2020-11-20 01:43] LABS: Alanine Aminotransferase 6 U/L (0-31); Albumin Level 4.1 g/dL (3.5-5.0); Alkaline Phosphatase 104 U/L (39-117); Anion Gap 16 (12-20); Aspartate Amino Transferase 13 U/L (5-31); Bilirubin Total 0.7 mg/dL (0.0-1.0); Blood Urea Nitrogen 14 mg/dL (9-16); Carbon Dioxide 20 mmol/L (22-29); Chloride 110 mmol/L (96-108); Creatinine Clr Calc Pharmacy 61.3; Estimated Glomerular Filt Rate > 60; Glucose Random 126 mg/dL (60-115); Potassium 3.6 mmol/L (3.3-5.1); Sodium 142 mmol/L (135-145); Total Protein 6.6 g/dL (6.5-8.0)
--- NOTE | 2020-11-20 03:40 | PC.NURSE ---
Pt heard yelling from her bed, pt tearful, holding the left side of her lower back. Pt reports chronic pain with no relief, requesting Tylenol for pain. Pt medicated with Tylenol, provided with many icepacks and assisted into POC. Pt resting in bed at this time, aware of plan for PT eval in the morning.
[2020-11-20] MEDS: Acetaminophen 325 MG TABLET 650 MG PO (03:48)
[2020-11-20 07:25] VITALS: RESP 18
--- NOTE | 2020-11-20 07:25 | PC.NURSE ---
patient currently sleeping, rr 18, will continue to monitor.
--- NOTE | 2020-11-20 07:33 | PC.NURSE ---
[facility] nurse eileen from [facility] called her number to contact is [phone], eileen states a is in the home twice a day to administer po pain medications to patient. she stated that 1 dose a day the patient is left to take independently and the nurse feels that the is taking this dose himself so the patient is not getting proper pain control due to this. the nurse also stated that all the patients meds were recently filled and if/when she is discharged to home there is no need for new prescriptions.
[2020-11-20 07:37] LABS: Glucose, Whole Blood 98 mg/dL (60-115)
--- NOTE | 2020-11-20 08:53 | PC.NURSE ---
provider notified pt in pain and requesting pain medications
[2020-11-20] MEDS: FLUoxetine HCl 20 MG CAPSULE 40 MG PO (09:19)
[2020-11-20] MEDS: Gabapentin 100 MG CAPSULE PO (09:19)
[2020-11-20] MEDS: fentaNYL 25 MCG PATCH.TD72 TRANSDERMA (09:19)
[2020-11-20] MEDS: ALPRAZolam 0.25 MG TABLET PO (09:19)
[2020-11-20 09:40] VITALS: BP 105/70; PULSE 93; O2SAT 98
[2020-11-20 10:55] VITALS: BP 112/74; PULSE 90; RESP 18; TEMP 37.1; O2SAT 98
[2020-11-20] MEDS: oxyCODONE HCl Immed Release 5 MG TABLET 7.5 MG PO (10:57)
--- NOTE | 2020-11-20 10:58 | PC.NURSE ---
patient a&ox3, ambulated independently to bathroom, pt c/o 02/07 generalized pain- pt medicated with prn medication per order, vss, will continue to monitor.
[2020-11-20 12:41] VITALS: RESP 18
--- NOTE | 2020-11-20 13:27 | MHC.CM.ED ---
Addendum entered by Kaila Martin 11/20/20 13:34: Patient only received 1 does of Moderna. Original Note: Received case management consult overnight. Physical therapy eval completed. Short term rehab is recommended. 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 Patient has been to [facility] for short term rehab and requested referral there. Referral sent to [facility]. They are able to offer a bed. Patient can leave at 4pm. [facility] booked. Patient and Vivian ENCARNACION aware. Continue to monitor for d/c needs.
[2020-11-20 15:11] VITALS: BP 104/55; PULSE 70; RESP 18; TEMP 37.1; O2SAT 98
--- NOTE | 2020-11-20 15:12 | PC.NURSE ---
report called to desiree bhatia pt to discharge at 4pm to facility
== END 2020-11-20 17:02 | disposition skilled nursing facility (03) ==
PROVIDERS: Emergency Provider Emergency Medicine; PCP Internal Medicine
DX: G89.29 Other chronic pain (principal); M54.5 Low back pain; Z69.11 Encounter for mental health services for victim of spousal or partner abuse; E11.9 Type 2 diabetes mellitus without complications; Z79.4 Long term (current) use of insulin; Z20.822 Contact with and (suspected) exposure to COVID-19
CPT/HCPCS: 36415; 80053; 81003; 82947; 85025; 87635; 93005; 97161; 99284; 99285

== ENCOUNTER 2020-11-24 06:55 | Outpatient (REF) | payer SELFPAY ==
[2020-11-24 07:13] LABS: Hematocrit 41.2 % (37-47); Hemoglobin 13.1 g/dl (12.0-16.0); Mean Corpuscular HGB Conc 31.8 g/dl (31.0-35.0); Mean Corpuscular Hemoglobin 27.7 pg (27.0-33.0); Mean Corpuscular Volume 87.1 fL (80-98); Mean Platelet Volume 10.6 fL (9.4-12.3); Platelet Count 232 X10*3/uL (160-400); Red Blood Count 4.73 X10*6/uL (4.20-5.50); Red Cell Distribution Width 13.9 % (11.0-16.0)
[2020-11-24 07:38] LABS: Alanine Aminotransferase 9 U/L (0-31); Albumin Level 3.8 g/dL (3.5-5.0); Alkaline Phosphatase 95 U/L (39-117); Anion Gap 13 (12-20); Aspartate Amino Transferase 17 U/L (5-31); Blood Urea Nitrogen 12 mg/dL (9-16); Calcium 8.5 mg/dL (8.4-10.2); Carbon Dioxide 22 mmol/L (22-29); Chloride 110 mmol/L (96-108); Estimated Glomerular Filt Rate > 60; Glucose Random 83 mg/dL (60-115); Potassium 4.2 mmol/L (3.3-5.1); Sodium 141 mmol/L (135-145)
[2020-11-24 07:46] LABS: Bilirubin Total 0.2 mg/dL (0.0-1.0)
[2020-11-24 17:25] LABS: Glucose Urine UA NEG (NEG); Leukocyte Esterase Urine NEG (NEG); Nitrite Urine NEG (NEG); Urine Blood NEG (NEG); Urine Ketones NEG (NEG); Urine Protein NEG (NEG-TRACE)
[2020-11-24 17:52] LABS: Appearance Urine CLEAR; Color Urine STRAW
== END 2020-11-24 06:56 | disposition home or self-care (01) ==
LOC: HO.MMNH1L 06:55
PROVIDERS: Visit Provider Family Medicine
DX: R30.0 Dysuria (principal); J45.20 Mild intermittent asthma, uncomplicated; F41.9 Anxiety disorder, unspecified
CPT/HCPCS: 36415; 80053; 81003; 85027; 87086

== ENCOUNTER 2020-12-07 00:10 | Outpatient (REF) | payer MEDICARE, MEDICAID, SELFPAY | END 2020-12-07 00:11 | disposition home or self-care (01) | LOC: HO.MMNH1L 00:10 | PROVIDERS: Visit Provider Family Medicine | DX: Z13.89 Encounter for screening for other disorder (principal) ==

== ENCOUNTER 2020-12-20 10:51 | Emergency (ER) | payer MEDICARE, MEDICAID, SELFPAY ==
[2020-12-20] VITALS (7 sets, daily range): BP systolic 117–140; BP diastolic 60–77; PULSE 62–110; RESP 14–18; TEMP 37–37.6; O2SAT 95–98; BMI 26.5
--- NOTE | ~2020-12-20 | CT_ITS ---
EXAMINATION: CT ABDOMEN AND PELVIS WITHOUT CONTRAST CLINICAL INFORMATION: Right flank pain. Question kidney stones. COMPARISON: None TECHNIQUE: Multidetector volumetric imaging was performed from the superior aspect of the liver through the pubic symphysis. Sagittal and coronal reformatted images were obtained on the technologist's workstation. This CT examination was performed using dose optimization techniques as appropriate, variously including the following: *Automated exposure control *Adjustment of mA and/or kV according to patient size (this includes techniques or standardized protocols for targeted exams where dose is matched to indication/reason for exam; i.e. extremities or head) *Use of iterative reconstruction technique DLP: 437 mGy-cm FINDINGS: LUNG BASES: The visualized lung bases are unremarkable. LIVER, GALLBLADDER, AND BILIARY TREE: The liver is normal in size, shape, and attenuation. No focal hepatic lesion or biliary ductal dilatation is present. The gallbladder is unremarkable with no evidence of radiopaque gallstones, gallbladder wall thickening, or obvious pericholecystic inflammatory changes. PANCREAS: Unremarkable. SPLEEN: Unremarkable. ADRENAL GLANDS: Unremarkable. KIDNEYS AND URETERS: The kidneys are normal in size, shape, and attenuation. No hydronephrosis, hydroureter, or calculi seen. No perinephric stranding. BLADDER: Unremarkable. GASTROINTESTINAL TRACT: There is scattered stool, oral contrast and gas seen throughout the colon without any significant distention. The small bowel loops are normal caliber. The ileocecal junction appears normal. Appendix is not visualized. The stomach is nondistended. ABDOMINAL WALL: No significant hernia is appreciated. LYMPH NODES: Normal. VASCULAR: Unremarkable. PELVIC VISCERA: Unremarkable. OSSEOUS STRUCTURES: There are degenerative disc changes and vacuum disc phenomena L3-L4 and L4-L5 disc levels with and probable ventral and posterior spondylosis. No lytic or sclerotic process seen. CT/CT abdomen pelvis wo con IMPRESSION: No acute intra-abdominal process seen. Appendix is not seen. The gallbladder has been surgically removed.
--- NOTE | 2020-12-20 11:43 | ED_ITS ---
HPI - Female Genitourinary General Chief complaint: Urogenital-Female Stated complaint: Right flank pain Time Seen by Provider: 12/20/20 12:54 Source: patient Mode of arrival: ambulatory Limitations: no limitations History of Present Illness HPI Narrative: Patient presents to ED for low back pain/ right flank pain r adiating to right lower quadrant pain since since yesterday. Patient states history of kidney stones. Patient states history of gallstone removal. Patient states no fever or chills. Patient states no dysuria or hematuria. pateitn denies any urinary/bowel incontienence. Patient states she had gallbalder and appendx removed. Related Data Home Medications Medication Instructions Recorded Confirmed dicyclomine 10 mg capsule 10 mg PO TID PRN 02/17/20 11/20/20 fluoxetine 40 mg capsule 40 mg PO QAM 02/17/20 11/20/20 oxycodone-acetaminophen 7.5 mg-325 1 tab PO BID PRN 02/17/20 11/20/20 mg tablet tiotropium bromide 2.5 2 puff INHALATION DAILY 02/17/20 11/20/20 mcg/actuation mist for inhalation (Spiriva Respimat) alprazolam 0.5 mg tablet 0.5 tab PO BID 09/16/20 11/20/20 gabapentin 100 mg capsule 100 mg PO BID 10/19/20 11/20/20 insulin lispro 100 unit/mL unit SUBCUT TID 10/19/20 10/19/20 subcutaneous pen (Humalog KwikPen (U-100) Insulin) sennosides 8.6 mg tablet (senna) 8.6 mg PO BID PRN 10/19/20 11/20/20 Previous Rx's Medication Instructions Recorded fentanyl 25 mcg/hr transdermal 1 patch TRANSDERMAL Q72H #5 ea 09/17/20 patch naloxone 4 mg/actuation nasal 4 mg INTRANASAL Q3M PRN #2 ea 09/17/20 spray (Narcan) fentanyl 25 mcg/hr transdermal 1 patch TRANSDERMAL Q72H #5 ea 11/20/20 patch gabapentin 100 mg capsule 100 mg PO BID #60 cap 11/20/20 lorazepam 0.5 mg tablet (Ativan) 0.5 mg PO BID PRN #60 tab 11/20/20 naloxone 4 mg/actuation nasal 4 mg INTRANASAL Q3M PRN #2 ea 11/20/20 spray (Narcan) oxycodone-acetaminophen 7.5 mg-325 1 tab PO Q6H PRN #90 tab 11/20/20 mg tablet Allergies Allergy/AdvReac Type Severity Reaction Status Date / Time aspirin [Aspirin] Allergy Intermediate STOMACH Verified 11/19/20 21:17 UPSET Iodinated Contrast Media Allergy Intermediate ITCHING Verified 11/19/20 21:17 [IV Dye, Iodine Containing Contrast ] shellfish derived Allergy Intermediate Itching Verified 11/19/20 21:17 [SHELLFISH DERIVED] SEAFOOD Allergy Unknown UNKNOWN Uncoded 01/16/20 16:22 Review of Systems Review of Systems: Yes all other systems are reviewed and are negative Constitutional: Constitutional: Reports as per HPI and Reports no additional constitutional complaints Eyes: Eyes: Reports as per HPI and Reports no additional eye complaints ENT: Reports system reviewed and no additional complaints, except as documented and Reports as per HPI Cardiovascular: Cardiovascular: Reports as per HPI and Reports no additional cardiovascular complaints Respiratory: Respiratory: Reports as per HPI and Reports no additional respiratory complaints Gastrointestinal: Gastrointestinal: Reports as per HPI, Reports no additional gastrointestinal complaints and Reports abdominal pain (Right flank radiating to right lower quadrant.) Genitourinary: Genitourinary: Reports no additional female genitourinary complaints and Reports as per HPI Musculoskeletal: Musculoskeletal: Reports no additional musculoskeletal complaints and Reports as per HPI Neurologic: Reports system reviewed and no additional complaints, except as documented and Reports as per HPI Psychiatric: Psychiatric: Reports no additional psychiatric complaints and Reports as per HPI PMFSH Past Medical History Medical History Acute arthritis Asthma Chronic back pain Diabetes Hx of intestinal obstruction Surgical History Hx of cholecystectomy Hx of hysterectomy Social History Social History (Updated 11/20/20 @ 00:29 by Yoli Crespo DO) Alcohol intake: never Patient Tobacco Use Status: Never used Tobacco Use of substances other than those prescribed or required for medical reasons: No Advance Directives: Yes Advance Directives on File: Yes Advance Directives Date on File: 11/20/20 Patient : No Physical Exam Vital Signs: Vital Signs: Last Vital Signs Temp 98.6 F 12/20/20 14:58 Pulse 67 08/22/21 16:58 Resp 14 12/20/20 14:58 BP 134/67 12/20/20 16:58 Pulse Ox 98 12/20/20 16:58 Body Mass Index 26.5 Const: General: cooperative, healthy appearing, comfortable, no acute distress, well developed, alert, awake and Physically active Orientati on/consciousness: patient oriented x3 HENMT: Head: Yes normal to inspection, Yes No palpable skull fracture present, Yes normocephalic and Yes atraumatic Eyes: General: appearance normal, both eyes and all related structures Neck: Neck: Yes normal visual inspection, Yes full ROM, Yes no lymphadenopathy, Yes no meningeal signs, Yes trachea midline, Yes supple and No tender Chest: Chest palpation & inspection: normal inspection of the chest and normal palpation of entire chest wall Resp: Effort & Inspection: normal respiratory effort and able to speak in complete sentences Auscultation: clear to auscultation bilaterally Cardio: Jugular venous distension: no JVD Heart sounds: S1 normal heart sound present and S2 normal heart sound present GI: Inspection: Yes normal to inspection and No abdominal wall ecchymosis Palpation (GI): Soft to palpation, not firm, Tenderness to palpation present (GI) in the RLQ, no guarding and not rigid : General: Yes CVA tenderness (Right) Back/Spine/Pelvis: Back: CVA tenderness (Right) and back tenderness (lumbar) Skin: General skin exam: no rashes or lesions noted and elasticity normal Neuro: General: patient oriented x3, gait normal, no meningeal signs and CN's II-XI intact bilaterally Cranial nerves: Yes CN's II-XII intact bilaterally Extrem: General: Yes normal to inspection and Yes full ROM Psych: Appearance: grossly normal, well kempt and not disheveled Course Course Course Narrative: Patient will have labs drawn and sent for dry CT scan to evaluate for kidney stones. Reevaluation(s) Reevaluation #1: No work came back normal urine came back negative for UTI. Kidney function is normal. From CT scan negative for any kidney stones or abdominal etiology. Next CT scan shows moderate degenerative arthritis of lumbar spine which is contributing to patient's pain. Patient given morphine. Time: 13:56 Reevaluation #2: Patient still continued to have pain. Rectal exm was performed. Patient has good rectal tone and strength. NEgative for any saddle anesthesia. Patient has good sensation in saddle area. patient has complete range of motion on lower extremities and able to ambulate. patient will like to go to rehab for the back pain. not suspecting cauqa equina. Dr. Cherie rivas with plan patient will wait for case managment and PT Time: 18:27 MDM - Female Genitourinary MDM Narrative Medical decision making narrative: Chtonic back pain Lab Data Result diagrams: 12/20/20 12:50 12/20/20 11:40 Labs: Lab Results 12/20/20 12/20/20 12/20/20 Range/Units 11:40 12:50 12:50 WBC 11.5 H (4.8-10.8) X10*3/uL RBC 4.58 (4.20-5.50) X10*6/uL Hgb 12.6 (12.0-16.0) g/dl Hct 39.0 (37-47) % MCV 85.2 (80-98) fL MCH 27.5 (27.0-33.0) pg MCHC 32.3 (31.0-35.0) g/dl RDW 14.3 (11.0-16.0) % Plt Count 285 D (160-400) X10*3/uL MPV 10.1 (9.4-12.3) fL Immature Gran % (Auto) 0.4 (0.0-0.4) % Neut % (Auto) 71.8 (45-73) % Lymph % (Auto) 19.7 L (20-40) % [place] % (Auto) 7.5 (2-11) % Eos % (Auto) 0.3 (0-4) % Baso % (Auto) 0.3 (0-2) % Lymph # (Auto) 2.3 (1.2-4.9) X10*3/uL [place] # (Auto) 0.9 (0.1-1.2) X10*3/uL Eos # (Auto) 0.0 (0.0-0.4) X10*3/uL Baso # (Auto) 0.0 (0.0-0.2) X10*3/uL Abs Immat Gran (auto) 0.05 H (0.00-0.03) X10*3/uL Absolute Neuts (auto) 8.2 (2.0-8.3) X10*3/uL Absolute Nucleated RBC 0.000 (0.0-0.012) X10*3/uL Nucleated RBC % (auto) 0.0 (0.0-0.2) /100WBC APTT 34.7 (24.1-38.0) SEC Sodium 141 (135-145) mmol/L Potassium 3.2 L D (3.3-5.1) mmol/L Chloride 108 (96-108) mmol/L Carbon Dioxide 22 (22-29) mmol/L Anion Gap 14 (12-20) BUN 12 (9-16) mg/dL Creatinine 0.73 (0.5-1.4) mg/dL Estim Creat Clear Calc 63.0 Estimated GFR > 60 Random Glucose 122 H D (60-115) mg/dL Calcium 9.2 (8.4-10.2) mg/dL Total Bilirubin 0.9 (0.0-1.0) mg/dL Direct Bilirubin 0.3 (0.0-0.5) mg/dL AST 13 (5-31) U/L ALT 10 (0-31) U/L Alkaline Phosphatase 92 (39-117) U/L Total Protein 6.5 (6.5-8.0) g/dL Albumin 4.2 (3.5-5.0) g/dL Lipase 7 L (8-78) U/L Urine Color Urine Appearance Urine pH (5.0-8.0) Ur Specific [place] (1.005-1.025) Urine Protein (NEG-TRACE) MG/DL Urine Glucose (UA) (NEG) MG/DL Urine Ketones (NEG) MG/DL Urine Blood (NEG) Urine Nitrite (NEG) Ur Leukocyte Esterase (NEG) 12/20/20 Range/Units 12:58 WBC (4.8-10.8) X10*3/uL RBC (4.20-5.50) X10*6/uL Hgb (12.0-16.0) g/dl Hct (37-47) % MCV (80-98) fL MCH (27.0-33.0) pg MCHC (31.0-35.0) g/dl RDW (11.0-16.0) % Plt Count (160-400) X10*3/uL MPV (9.4-12.3) fL Immature Gran % (Auto) (0.0-0.4) % Neut % (Auto) (45-73) % Lymph % (Auto) (20-40) % [place] % (Auto) (2-11) % Eos % (Auto) (0-4) % Baso % (Auto) (0-2) % Lymph # (Auto) (1.2-4.9) X10*3/uL [place] # (Auto) (0.1-1.2) X10*3/uL Eos # (Auto) (0.0-0.4) X10*3/uL Baso # (Auto) (0.0-0.2) X10*3/uL Abs Immat Gran (auto) (0.00-0.03) X10*3/uL Absolute Neuts (auto) (2.0-8.3) X10*3/uL Absolute Nucleated RBC (0.0-0.012) X10*3/uL Nucleated RBC % (auto) (0.0-0.2) /100WBC APTT (24.1-38.0) SEC Sodium (135-145) mmol/L Potassium (3.3-5.1) mmol/L Chloride (96-108) mmol/L Carbon Dioxide (22-29) mmol/L Anion Gap (12-20) BUN (9-16) mg/dL Creatinine (0.5-1.4) mg/dL Estim Creat Clear Calc Estimated GFR Random Glucose (60-115) mg/dL Calcium (8.4-10.2) mg/dL Total Bilirubin (0.0-1.0) mg/dL Direct Bilirubin (0.0-0.5) mg/dL AST (5-31) U/L ALT (0-31) U/L Alkaline Phosphatase (39-117) U/L Total Protein (6.5-8.0) g/dL Albumin (3.5-5.0) g/dL Lipase (8-78) U/L Urine Color YELLOW Urine Appearance CLEAR Urine pH 6.0 (5.0-8.0) Ur Specific [place] 1.020 (1.005-1.025) Urine Protein NEG (NEG-TRACE) MG/DL Urine Glucose (UA) NEG (NEG) MG/DL Urine Ketones 15 (NEG) MG/DL Urine Blood NEG (NEG) Urine Nitrite NEG (NEG) Ur Leukocyte Esterase NEG (NEG) Discharge Plan Discharge Clinical Impression: Chronic back pain Prescriptions: No Action fluoxetine 40 mg capsule 40 mg PO QAM RF: 0 oxycodone-acetaminophen 7.5-325 mg tablet 1 tab PO BID PRN (Reason: Pain) RF: 0 dicyclomine 10 mg capsule 10 mg PO TID PRN (Reason: Abdominal Pain) RF: 0 Spiriva Respimat 2.5 mcg/actuation mist 2 puff inhalation DAILY RF: 0 alprazolam 0.5 mg tablet 0.5 tab PO BID RF: 0 fentanyl 25 mcg/hr patch 72 hour 1 patch transdermal Q72H Qty: 5 RF: 0 Narcan 4 mg/actuation spray,non-aerosol 4 mg intranasal Q3M PRN (Reason: opioid overdose) Qty: 2 RF: 0 gabapentin 100 mg capsule 100 mg PO BID RF: 0 insulin lispro [Humalog KwikPen Insulin] 100 unit/mL insulin pen subcut TID RF: 0 sennosides [senna] 8.6 mg Tablet 8.6 mg PO BID PRN (Reason: Constipation) RF: 0 oxycodone-acetaminophen 7.5-325 mg tablet 1 tab PO Q6H PRN (Reason: pain) Qty: 90 RF: 0 lorazepam [Ativan] 0.5 mg tablet 0.5 mg PO BID PRN (Reason: anxiety) Qty: 60 RF: 0 gabapentin 100 mg capsule 100 mg PO BID Qty: 60 RF: 0 fentanyl 25 mcg/hr patch 72 hour 1 patch transdermal Q72H Qty: 5 RF: 0 Narcan 4 mg/actuation spray,non-aerosol 4 mg intranasal Q3M PRN (Reason: opioid overdose) Qty: 2 RF: 1
[2020-12-20] MEDS: 0.9 % Sodium Chloride 1,000 ML 999 ML IV (11:45)
[2020-12-20] MEDS: Morphine Sulfate 4 MG/ML CARTRIDGE IVPUSH ×2 (11:45→13:26)
[2020-12-20 12:13] LABS: Alanine Aminotransferase 10 U/L (0-31); Albumin Level 4.2 g/dL (3.5-5.0); Alkaline Phosphatase 92 U/L (39-117); Anion Gap 14 (12-20); Aspartate Amino Transferase 13 U/L (5-31); Bilirubin Direct 0.3 mg/dL (0.0-0.5); Bilirubin Total 0.9 mg/dL (0.0-1.0); Blood Urea Nitrogen 12 mg/dL (9-16); Calcium 9.2 mg/dL (8.4-10.2); Carbon Dioxide 22 mmol/L (22-29); Chloride 108 mmol/L (96-108); Estimated Glomerular Filt Rate > 60; Glucose Random 122 mg/dL (60-115); Lipase 7 U/L (8-78); Potassium 3.2 mmol/L (3.3-5.1); Sodium 141 mmol/L (135-145); Total Protein 6.5 g/dL (6.5-8.0)
[2020-12-20 12:54] LABS: MANUAL DIFF FLAG NO
[2020-12-20 13:07] LABS: Basophils Percent Auto 0.3 % (0-2); Eosinophils Percent Auto 0.3 % (0-4); Hemoglobin 12.6 g/dl (12.0-16.0); Imm Gran Abs Auto 0.05 X10*3/uL (0.00-0.03); Imm Gran Pct Auto 0.4 % (0.0-0.4); Lymphocytes Absolute Auto 2.3 X10*3/uL (1.2-4.9); Lymphocytes Percent Auto 19.7 % (20-40); Mean Corpuscular HGB Conc 32.3 g/dl (31.0-35.0); Mean Corpuscular Hemoglobin 27.5 pg (27.0-33.0); Mean Corpuscular Volume 85.2 fL (80-98); Mean Platelet Volume 10.1 fL (9.4-12.3); Monocytes Absolute Auto 0.9 X10*3/uL (0.1-1.2); Monocytes Percent Auto 7.5 % (2-11); Neutrophils Absolute Auto 8.2 X10*3/uL (2.0-8.3); Neutrophils Percent Auto 71.8 % (45-73); Platelet Count 285 X10*3/uL (160-400); Red Blood Count 4.58 X10*6/uL (4.20-5.50); Red Cell Distribution Width 14.3 % (11.0-16.0); White Blood Count 11.5 X10*3/uL (4.8-10.8)
[2020-12-20 13:08] LABS: Glucose Urine UA NEG (NEG); Leukocyte Esterase Urine NEG (NEG); Nitrite Urine NEG (NEG); Urine Blood NEG (NEG); Urine Ketones 15 MG/DL (NEG); Urine Protein NEG (NEG-TRACE)
[2020-12-20 13:09] LABS: Appearance Urine CLEAR; Color Urine YELLOW
[2020-12-20 13:16] LABS: Partial Thromboplastin Time 34.7 SEC (24.1-38.0)
[2020-12-20] MEDS: Ketorolac Tromethamine 15 MG/ML VIAL 30 MG IVPUSH (15:01)
[2020-12-20] MEDS: diazePAM 5 MG TABLET PO (15:01)
[2020-12-20] MEDS: HYDROmorphone HCl 0.5 MG/0.5 ML SYRINGE IVPUSH (18:57)
--- NOTE | 2020-12-20 22:16 | PC.NURSE ---
med rec complete with claim inspector. explained to pt plan to stay overnight, see PT in the morning and CM. Pt agreeable to plan. aware of plan to place at rehab.
[2020-12-20 22:31] LABS: Glucose, Whole Blood 118 mg/dL (60-115)
[2020-12-20] MEDS: Gabapentin 100 MG CAPSULE PO (23:04)
[2020-12-20] MEDS: ALPRAZolam 0.5 MG TABLET 1 MG PO (23:04)
[2020-12-20] MEDS: fentaNYL 25 MCG PATCH.TD72 TRANSDERMA (23:05)
--- NOTE | 2020-12-20 23:59 | PC.NURSE ---
This RN to bedside with tire retreader. Pt aaox4, resting on stretcher in NAD breathing with ease on RA. VS assessed and stable. Pt reports 10/10 pain, requesting pain meds. Pt to be medicated with PRN pain meds per JUN. Pt ambulates with steady gait with standby assist to bathroom for urinary needs, returned to stretcher without incidence. Pt with red fall prevention socks on, red fall alert bracelet in place, and red star posted outside of room. Pt stretcher in lowest locked position with side rails raised, call ndiaye within reach, personal belongings within reach. Pt expresses understanding of need to use call ndiaye for any and all needs.
[2020-12-21 00:10] LABS: COVID-19 Test Negative (Negative); IDNOW Serial# 9DD0AD1C
--- NOTE | 2020-12-21 00:15 | PC.NURSE ---
This RN updated pt that there is actually no PRN pain med available to pt. Pt expresses understanding, states she is going to try to sleep. Lights dimmed, curtain pulled for pt in efforts to encourage rest.
[2020-12-21] MEDS: oxyCODONE HCl Immed Release 5 MG TABLET 7.5 MG PO (05:46)
[2020-12-21] MEDS: Acetaminophen 325 MG TABLET PO (05:46)
--- NOTE | 2020-12-21 05:47 | PC.NURSE ---
Pt requesting pain medications, medicated per MAR for 10/10 pain to back/abdomen.
[2020-12-21 07:40] VITALS: BP 135/72; PULSE 69; O2SAT 98
[2020-12-21 08:11] VITALS: BP 118/59; PULSE 71; RESP 18; O2SAT 96
[2020-12-21] MEDS: ALPRAZolam 0.5 MG TABLET 1 MG PO (08:13)
[2020-12-21] MEDS: Gabapentin 100 MG CAPSULE PO (08:14)
--- NOTE | 2020-12-21 08:17 | PC.NURSE ---
pt resting in the stretcher, ate her breakfast, pt still is reporting right lower back pain that is radiating to the right front, respirations even and unlabored, pt does state she is diabetic will check poc. consult for ed rec added and pt is awaiting for pt evaluation
[2020-12-21 09:02] LABS: Glucose, Whole Blood 135 mg/dL (60-115)
--- NOTE | 2020-12-21 09:14 | PHA.MEDREC ---
Pharmacy Consult ? Medication Reconciliation Pharmacy has completed the medication reconciliation. Multiple medications were entered incorrectly over the weekend. Provider made aware. Med list updated per patient (via skills auditor) and pharmacy records Thanks Yogesh Snow
[2020-12-21] MEDS: FLUoxetine HCl 20 MG CAPSULE 40 MG PO (12:09)
--- NOTE | 2020-12-21 13:40 | MHC.CM.ED ---
pt has requested to go to [address] [place] [address] where she is accepted. she is leaving at 2pm via s transport - action. patient , nurse and md are aware. cm to cont. to follow.
[2020-12-21 13:45] VITALS: BP 116/66; PULSE 71; RESP 18; TEMP 37; O2SAT 96
--- NOTE | 2020-12-21 14:30 | PC.NURSE ---
PT AMBULATED TO BR W/ EVEN STEADY GAIT INDEPENDENTLY. PT AWARE/AGREEABLE TO PENDING TX TO STR.
== END 2020-12-21 14:31 | disposition skilled nursing facility (03) ==
PROVIDERS: Nurse Practitioner Family; Physician Assistant; Emergency Provider Emergency Medicine; PCP Internal Medicine
DX: M54.5 Low back pain (principal); R10.9 Unspecified abdominal pain; Z79.899 Other long term (current) drug therapy; Z79.82 Long term (current) use of aspirin; Z79.4 Long term (current) use of insulin; Z20.822 Contact with and (suspected) exposure to COVID-19
CPT/HCPCS: 36415; 74176; 80053; 81003; 82248; 82947; 83690; 85025; 85730; 87635; 96365; 96375; 97161; 99285; J1170; J1885; J2270

== ENCOUNTER 2021-02-26 05:04 | Outpatient (REF) | payer MEDICARE, MEDICAID, SELFPAY | END 2021-02-26 05:05 | disposition home or self-care (01) | LOC: HO.HOSX 05:04 | PROVIDERS: Visit Provider Physician Assistant | DX: Z13.89 Encounter for screening for other disorder (principal) ==

== ENCOUNTER 2021-04-24 19:18 | Emergency (ER) | payer MEDICARE, MEDICAID, SELFPAY ==
--- NOTE | ~2021-04-24 | CT_ITS ---
EXAMINATION: CT ABDOMEN AND PELVIS WITHOUT CONTRAST CT LUMBAR SPINE WITHOUT CONTRAST CLINICAL INFORMATION: Back/flank/hip pain. Question lumbar fracture or kidney stone. COMPARISON: 12/20/2020 TECHNIQUE: Multidetector volumetric imaging was performed from the superior aspect of the liver through the pubic symphysis. Sagittal and coronal reformatted images were obtained on the technologist's workstation. Additional multidetector volumetric imaging of the lumbar spine performed without IV contrast. Coronal and sagittal reformatted images obtained and reviewed. This CT examination was performed using dose optimization techniques as appropriate, variously including the following: *Automated exposure control *Adjustment of mA and/or kV according to patient size (this includes techniques or standardized protocols for targeted exams where dose is matched to indication/reason for exam; i.e. extremities or head) *Use of iterative reconstruction technique DLP: 820 mGy-cm. FINDINGS: LUNG BASES: The visualized lung bases are unremarkable. LIVER, GALLBLADDER, AND BILIARY TREE: The liver is normal in size, shape, and attenuation. No focal hepatic lesion or biliary ductal dilatation is present. Cholecystectomy. PANCREAS: Mild atrophy with no focal abnormality. SPLEEN: Unremarkable. ADRENAL GLANDS: Unremarkable. KIDNEYS AND URETERS: The kidneys are normal in size, shape, and attenuation. No hydronephrosis, hydroureter, or calculi seen. No perinephric stranding. 1.3 cm simple cyst at the upper pole of the right kidney. No follow-up imaging recommended. BLADDER: Unremarkable. GASTROINTESTINAL TRACT: The stomach is unremarkable. Normal caliber small bowel. No obstruction. No colonic wall thickening or inflammatory change. The appendix is not seen. No free air or free fluid. ABDOMINAL WALL: No significant hernia is appreciated. LYMPH NODES: Normal. VASCULAR: Unremarkable. PELVIC VISCERA: The uterus is not seen. No adnexal mass. OSSEOUS STRUCTURES: No acute or suspicious osseous abnormality. Vertebral body height and alignment maintained. There is mild disc space narrowing at L4-L5. Vacuum disc phenomenon of L3-L4, L4-L5, and L5-S1. Endplate sclerosis at these levels with osteophytes throughout. Facet arthropathy. The sacrum is intact. The sacroiliac joints are symmetric with degenerative change. CT/CT abdomen pelvis wo con IMPRESSION: 1. No acute finding of the abdomen or pelvis. No hydronephrosis or nephrolithiasis. 2. No fracture or malalignment of the lumbar spine. Mild to moderate degenerative changes which are greatest at the lower lumbar spine.
[2021-04-24 19:24] VITALS: BP 142/76; PULSE 84; O2SAT 100
[2021-04-24 20:00] VITALS: BP 174/84; PULSE 84; RESP 16; TEMP 36.6; O2SAT 98; BMI 34.2
--- NOTE | 2021-04-25 01:25 | ED_ITS ---
HPI - General Adult General Chief complaint: Extremity Injury, Lower Stated complaint: lower back pain Time Seen by Provider: 04/25/21 00:50 Source: patient Mode of arrival: ambulatory Limitations: no limitations History of Present Illness HPI narrative: Patient presents to ED for lower back pain, right hip pain came and right flank pain. Patient states having this pain for weeks. Patient states she fell due to her back pain couple weeks ago onto her back and hip since then the pain has worsened. Patient denies hitting head or loss of consciousness at the time. Related Data Home Medications Medication Instructions Recorded Confirmed dicyclomine 10 mg capsule 10 mg PO TID PRN 02/17/20 12/20/20 fluoxetine 40 mg capsule 40 mg PO QAM 02/17/20 12/21/20 oxycodone-acetaminophen 7.5 mg-325 1 tab PO TID PRN 02/17/20 12/21/20 mg tablet tiotropium bromide 2.5 2 puff INHALATION DAILY 02/17/20 12/20/20 mcg/actuation mist for inhalation (Spiriva Respimat) alprazolam 0.5 mg tablet 2 tab PO QPM 09/16/20 12/21/20 gabapentin 100 mg capsule 100 mg PO TID 10/19/20 12/21/20 insulin lispro 100 unit/mL See Rx Instructions .ROUTE .COMPLEX 10/19/20 12/21/20 subcutaneous pen (Humalog KwikPen (U-100) Insulin) sennosides 8.6 mg tablet (senna) 8.6 mg PO BID PRN 10/19/20 12/20/20 acetaminophen 650 mg 1 tab PO Q8H PRN 12/21/20 12/21/20 tablet,extended release (Mapap Arthritis Pain) alprazolam 0.5 mg tablet 1 tab PO QAM PRN 12/21/20 12/21/20 budesonide 180 mcg/actuation 2 inh PO BID 12/21/20 12/21/20 breath activated powder inhaler (Pulmicort Flexhaler) ibuprofen 400 mg tablet 1 tab PO Q4H PRN 12/21/20 12/21/20 ondansetron HCl 4 mg tablet 4 mg PO Q8H PRN 12/21/20 12/21/20 Previous Rx's Medication Instructions Recorded fentanyl 25 mcg/hr transdermal 1 patch TRANSDERMAL Q72H #5 ea 09/17/20 patch naloxone 4 mg/actuation nasal 4 mg INTRANASAL Q3M PRN #2 ea 09/17/20 spray (Narcan) ketorolac 10 mg tablet 10 mg PO QID PRN 5 Days #20 tab 04/25/21 lidocaine 4 % topical patch 1 patch TOPICAL DAILY PRN #10 ea 04/25/21 prednisone 20 mg tablet 60 mg PO DAILY 5 Days #15 tab 04/25/21 Allergies Allergy/AdvReac Type Severity Reaction Status Date / Time aspirin [Aspirin] Allergy Intermediate STOMACH Verified 11/19/20 21:17 UPSET Iodinated Contrast Media Allergy Intermediate ITCHING Verified 11/19/20 21:17 [IV Dye, Iodine Containing Contrast ] shellfish derived Allergy Intermediate Itching Verified 11/19/20 21:17 [SHELLFISH DERIVED] SEAFOOD Allergy Unknown UNKNOWN Uncoded 01/16/20 16:22 Review of Systems Review of Systems: Yes all other systems are reviewed and are negative Constitutional: Constitutional: Reports as per HPI and Reports no additional constitutional complaints Eyes: Eyes: Reports as per HPI and Reports no additional eye complaints ENT: Reports system reviewed and no additional complaints, except as documented and Reports as per HPI Cardiovascular: Cardiovascular: Reports as per HPI and Reports no additional cardiovascular complaints Respiratory: Respiratory: Reports as per HPI and Reports no additional respiratory complaints Gastrointestinal: Gastrointestinal: Reports as per HPI and Reports no additional gastrointestinal complaints Genitourinary: Genitourinary: Reports no additional female genitourinary complaints and Reports as per HPI Musculoskeletal: Musculoskeletal: Reports no additional musculoskeletal complaints, Reports as per HPI, Reports back pain and Reports arthralgias (Right hip pain) Neurologic: Reports system reviewed and no additional complaints, except as documented and Reports as per HPI Psychiatric: Psychiatric: Reports no additional psychiatric complaints and Reports as per HPI PMFSH Past Medical History Medical History Acute arthritis Asthma Chronic back pain Diabetes Hx of intestinal obstruction Surgical History Hx of cholecystectomy Hx of hysterectomy Social History Social History (Updated 11/20/20 @ 00:29 by Yoli Crespo DO) Alcohol intake: never Patient Tobacco Use Status: Never used Tobacco Advance Directives: Yes Advance Directives on File: Yes Advance Directives Date on File: 11/20/20 Physical Exam Vital Signs: Vital Signs: Last Vital Signs Temp 97.9 F 04/24/21 20:00 Pulse 84 04/24/21 20:00 Resp 16 04/24/21 20:00 BP 174/84 H 04/24/21 20:00 Pulse Ox 98 04/24/21 20:00 BMI result Body Mass Index 34.2 Const: General: cooperative, healthy appearing, comfortable, no acute distress, well developed, alert, awake and Physically active Orie ntation/consciousness: patient oriented x3 HENMT: Head: Yes normal to inspection, Yes No palpable skull fracture present, Yes normocephalic, Yes atraumatic and No abrasion Eyes: General: appearance normal, both eyes and all related structures Neck: Neck: Yes normal visual inspection, Yes full ROM, Yes no lymphadenopathy, Yes no meningeal signs, Yes trachea midline, Yes supple, No anterior neck swelling and No tender Chest: Chest palpation & inspection: normal inspection of the chest and normal palpation of entire chest wall Resp: Effort & Inspection: normal respiratory effort and able to speak in complete sentences Auscultation: clear to auscultation bilaterally Cardio: Jugular venous distension: no JVD Heart sounds: S1 normal heart sound present and S2 normal heart sound present GI: Inspection: Yes normal to inspection and No abdominal wall ecchymosis Palpation (GI): Soft to palpation, not firm, nontender, no guarding and not rigid : General: No CVA tenderness and Yes no CVA tenderness Back/Spine/Pelvis: Back: no CVA tenderness, No CVA tenderness and back tenderness (lumbar and right paraspinal muslce tenderness. ) Skin: General skin exam: no rashes or lesions noted and elasticity normal Neuro: General: patient oriented x3, gait normal, no meningeal signs and CN's II-XI intact bilaterally Cranial nerves: Yes CN's II-XII intact bilaterally Extrem: General: Yes normal to inspection and Yes full ROM Upper/lower leg/hip images: 1. Positive for tenderness on palpation. Negative f or any ecchymosis, tenderness, deformity, or internal/external rotation. Motor/neuro/vascular exam intact Psych: Appearance: grossly normal, well kempt and not disheveled Course Course Course Narrative: Will check for urine, lumbar spine CT can and dry the CT scan kidney stone Reevaluation(s) Reevaluation #1: After pain medication. Patient walked to the bathroom on her own. Rectal exam positive for good rectal tone and negative for saddle anesthesia. Waiting for images and UA results. Time: 01:58 Reevaluation #2: Patient UA negative for infection. Images negative for lumbar spinal hip fracture. Negative for kidney stones. Patient will be discharged with steroids and pain medication. Patient walked around the ED by herself with normal gait Time: 02:23 Medical Decision Making MDM Narrative Medical decision making narrative: Lumbar radiculopathy Discharge Plan Discharge Clinical Impression: Lumbar radiculopathy Patient Disposition: Home, Self-Care Instructions: Lumbar Radiculopathy (ED) Additional Instructions: Sanchez orina result? negativa para infecci?n. Sanchez tomograf?a computarizada result? negativa para cualquier etiolog?a abdominal anormal. Negativo para cualquier fractura de cadera. La tomograf?a computarizada muestra artritis de la columna lumbar. Regrese al servicio de urgencias de inmediato si tiene dolor abdominal, n?useas, v?mitos, fiebre, escalofr?os, dolor en el costado, disuria, hematuria, incontinencia urinaria / intestinal, incapacidad para caminar, fiebre, escalofr?os o cualquier otro s?ntoma que le preocupe. Edwardo un seguimiento con el proveedor de atenci?n primaria. Prescriptions: New lidocaine 4 % adhesive patch,medicated 1 patch topical DAILY PRN (Reason: pain) Qty: 10 RF: 0 prednisone 20 mg tablet 60 mg PO DAILY 5 Days Qty: 15 RF: 0 ketorolac 10 mg tablet 10 mg PO QID PRN (Reason: pain) 5 Days Qty: 20 RF: 0 No Action fluoxetine 40 mg capsule 40 mg PO QAM RF: 0 oxycodone-acetaminophen 7.5-325 mg tablet 1 tab PO TID PRN (Reason: Pain) RF: 0 dicyclomine 10 mg capsule 10 mg PO TID PRN (Reason: Abdominal Pain) RF: 0 Spiriva Respimat 2.5 mcg/actuation mist 2 puff inhalation DAILY RF: 0 alprazolam 0.5 mg tablet 2 tab PO QPM RF: 0 fentanyl 25 mcg/hr patch 72 hour 1 patch transdermal Q72H Qty: 5 RF: 0 Narcan 4 mg/actuation spray,non-aerosol 4 mg intranasal Q3M PRN (Reason: opioid overdose) Qty: 2 RF: 0 gabapentin 100 mg capsule 100 mg PO TID RF: 0 insulin lispro [Humalog KwikPen Insulin] 100 unit/mL insulin pen See Rx Instructions .ROUTE .COMPLEX RF: 0 sennosides [senna] 8.6 mg Tablet 8.6 mg PO BID PRN (Reason: Constipation) RF: 0 ondansetron HCl 4 mg tablet 4 mg PO Q8H PRN (Reason: Nausea And Vomiting) RF: 0 ibuprofen 400 mg tablet 1 tab PO Q4H PRN (Reason: pain) RF: 0 acetaminophen [Mapap Arthritis Pain] 650 mg tablet extended release 1 tab PO Q8H PRN (Reason: pain) RF: 0 Pulmicort Flexhaler 180 mcg/actuation aerosol powdr breath activated 2 inh PO BID RF: 0 alprazolam 0.5 mg tablet 1 tab PO QAM PRN (Reason: Anxiety) RF: 0 Print Language: Macanese
[2021-04-25] MEDS: predniSONE 20 MG TABLET 60 MG PO (01:26)
[2021-04-25] MEDS: Ketorolac Tromethamine 60 MG/2 ML VIAL IM (01:27)
[2021-04-25] MEDS: Lidocaine 4 % Patch ADH..PATCH 1 PATCH TRANSDERMA (01:30)
[2021-04-25 02:18] LABS: Appearance Urine CLEAR; Color Urine YELLOW; Glucose Urine UA NEG (NEG); Leukocyte Esterase Urine NEG (NEG); Nitrite Urine NEG (NEG); Specific Gravity - Urine 1.025 (1.005-1.025); UACC Culture Trigger NO; Urine Blood TRACE (NEG); Urine Ketones 5 MG/DL (NEG); Urine Protein TRACE MG/DL (NEG-TRACE)
[2021-04-25 02:25] LABS: Calcium Oxalate Crystals Urine 3+ /LPF; Hyaline Casts Urine 0-2 /LPF; Mucus Urine 3+ /LPF; RBC Urine 0-2 /HPF (0); Squamous Epithelial Cell Urine 2+ /LPF; WBC Urine 0-2 /HPF (0-4)
[2021-04-25 02:59] VITALS: BP 124/69; PULSE 69; RESP 16; O2SAT 98
== END 2021-04-25 03:19 | disposition home or self-care (01) ==
PROVIDERS: Physician Assistant; Emergency Provider Internal Medicine; PCP Internal Medicine
DX: M54.16 Radiculopathy, lumbar region (principal); M54.50 Low back pain, unspecified; E11.9 Type 2 diabetes mellitus without complications
CPT/HCPCS: 72131; 74176; 81001; 96372; 99284; J1885

== ENCOUNTER 2021-05-23 17:21 | Emergency (ER) | payer OTHER, SELFPAY ==
--- NOTE | ~2021-05-23 | CT_ITS ---
EXAMINATION: CT CHEST, ABDOMEN AND PELVIS WITHOUT CONTRAST CLINICAL INFORMATION: Evaluate for pneumonia. Left lower back pain radiating to the leg, evaluate for nephrolithiasis. COMPARISON: CT abdomen dated from 04/25/2021. TECHNIQUE: Multidetector volumetric imaging was performed from the thoracic inlet through the pubic symphysis without intravenous contrast. Sagittal and coronal reformatted images were obtained on the technologist's workstation. This CT examination was performed using dose optimization techniques as appropriate, variously including the following: *Automated exposure control *Adjustment of mA and/or kV according to patient size (this includes techniques or standardized protocols for targeted exams where dose is matched to indication/reason for exam; i.e. extremities or head) *Use of iterative reconstruction technique DLP: 456 mGy-cm FINDINGS: CHEST: Lung: Mild centrilobular emphysema and bronchial wall thickening. No focal airspace opacities. Subsegmental atelectasis dependently in the lungs. There is a 0.3 cm pulmonary nodule in the right middle lobe (12:288) and a 0.4 cm pulmonary nodule in the left lower lobe (12:267). There are a few subcentimeter calcified granulomas. The central airways are patent. Mediastinum: Normal heart size. Trace amount of pericardial fluid/thickening. Mild coronary calcifications and atherosclerotic disease of the thoracic aorta without aneurysm. No mediastinal lymphadenopathy by size criteria. Evaluation of hilar lymph nodes is limited in the absence of intravenous contrast. Normal appearance of the thyroid gland. Pericardium/Pleura: No significant effusion. No pleural mass or thickening. Chest Wall/Axilla: Chronic appearing right-sided seventh through 10th rib fractures. ABDOMEN/PELVIS: Peritoneal Space:No significant free air or free fluid identified. Liver, Gallbladder, Biliary Tree: The liver is normal in size, shape, and attenuation. No focal hepatic lesion. Cholecystectomy with stable dilatation of the common bile duct up to 1.2 cm and no intrahepatic biliary ductal dilatation. Pancreas: Unremarkable. Spleen: Unremarkable. Adrenal Glands: Unremarkable. Kidneys and Ureters: The kidneys are normal in size, shape, and attenuation. Water density cyst in the upper pole of the right kidney. No hydronephrosis, hydroureter, or calculi seen. No perinephric stranding. Bladder: Unremarkable. Gastrointestinal Tract: The stomach and the small bowel are nondilated. Similar degree of submucosal fatty deposition in the cecum and ascending colon. The appendix is not visualized. There are no pericolic inflammatory changes or evidence of bowel obstruction. Abdominal Wall: No significant hernia is appreciated. Lymphovascular Structures: No lymphadenopathy by size criteria. Atherosclerotic disease of the abdominal aorta which is of normal diameter. Pelvic Viscera: Hysterectomy. No adnexal mass. Osseus Structures: No acute or aggressive osseous abnormalities. Thoracolumbar spondylosis. CT/CT abdomen pelvis wo con IMPRESSION: The lack of intravenous contrast limits evaluation of the solid visceral organs. Chest: 1. Mild emphysema and bronchial wall thickening which is indeterminate and could be related with bronchitis, reactive airways disease or atypical infections. 2. No lobar opacities. 3. Subcentimeter pulmonary nodules are nonspecific and could be follow-up following Fleischner Society recommendations if there is no prior history of cancer (see below). Abdomen/pelvis: No acute abnormalities in the abdomen or pelvis. Specifically, no nephrolithiasis or hydronephrosis. 2017 Fleischner Society Recommendations for Lung Nodule(s): Multiple Solid lung nodules < 6 mm: In a low-risk patient, no routine follow-up imaging is recommended. In a high-risk patient, a non-contrast Chest CT at 12 months is optional. If performed and the nodule is stable at 12 months, no further follow-up is recommended. These guidelines do not apply to patients younger than 35 years, immunocompromised patients, and patients with cancer. F/u in patients with significant comorbidities as clinically warranted. For lung cancer screening, adhere to Lung-RADS guidelines. Reference: Radiology. 2017 Oct; 284(1):228-243
[2021-05-23 18:27] VITALS: BP 130/80; PULSE 84; O2SAT 97
[2021-05-23 18:32] VITALS: BP 118/69; PULSE 83; TEMP 37; O2SAT 99; BMI 30.1
[2021-05-23 19:00] LABS: Appearance Urine CLEAR; Color Urine YELLOW; Glucose Urine UA NEG (NEG); Leukocyte Esterase Urine NEG (NEG); Nitrite Urine NEG (NEG); Specific Gravity - Urine 1.025 (1.005-1.025); Urine Blood NEG (NEG); Urine Ketones NEG (NEG); Urine Protein NEG (NEG-TRACE)
[2021-05-23 19:41] LABS: MANUAL DIFF FLAG NO
[2021-05-23 19:43] LABS: Basophils Absolute Auto 0.1 X10*3/uL (0.0-0.2); Basophils Percent Auto 0.6 % (0-2); Eosinophils Percent Auto 0.1 % (0-4); Hematocrit 41.4 % (37.0-47.0); Hemoglobin 13.8 g/dl (12.0-16.0); Imm Gran Abs Auto 0.04 X10*3/uL (0.00-0.03); Imm Gran Pct Auto 0.3 % (0.0-0.4); Lymphocytes Absolute Auto 3.2 X10*3/uL (1.2-4.9); Lymphocytes Percent Auto 22.9 % (20-40); Mean Corpuscular HGB Conc 33.3 g/dl (31.0-35.0); Mean Corpuscular Hemoglobin 28.5 pg (27.0-33.0); Mean Corpuscular Volume 85.4 fL (80.0-98.0); Mean Platelet Volume 10.1 fL (9.4-12.3); Monocytes Absolute Auto 0.8 X10*3/uL (0.1-1.2); Monocytes Percent Auto 5.5 % (2-11); Neutrophils Absolute Auto 9.8 x10*3/uL (2.0-8.3); Neutrophils Percent Auto 70.6 % (45-73); Platelet Count 258 X10*3/uL (160-400); Red Blood Count 4.85 X10*6/uL (4.20-5.50); Red Cell Distribution Width 15.3 % (11.0-16.0); White Blood Count 13.8 X10*3/uL (4.8-10.8)
[2021-05-23 19:52] VITALS: BP 130/67; PULSE 80; RESP 16; O2SAT 97
[2021-05-23 20:00] VITALS: O2SAT 97
[2021-05-23 20:00] LABS: Alanine Aminotransferase 8 U/L (0-31); Albumin Level 4.2 g/dL (3.5-5.0); Alkaline Phosphatase 91 U/L (39-117); Anion Gap 13 (12-20); Aspartate Amino Transferase 13 U/L (5-31); Bilirubin Total 0.7 mg/dL (0.0-1.0); Blood Urea Nitrogen 11 mg/dL (9-16); Calcium 9.6 mg/dL (8.4-10.2); Carbon Dioxide 24 mmol/L (22-29); Chloride 109 mmol/L (96-108); Creatinine Clr Calc Pharmacy 58.6; Estimated Glomerular Filt Rate > 60; Glucose Random 114 mg/dL (60-115); Lipase 15 U/L (8-78); Potassium 3.5 mmol/L (3.3-5.1); Sodium 142 mmol/L (135-145)
[2021-05-23] MEDS: predniSONE 20 MG TABLET 60 MG PO (20:13)
[2021-05-23 20:23] LABS: COVID-19 Test Negative (Negative)
[2021-05-23] MEDS: Albuterol/Iprat 2.5/0.5MG 3 ML AMPUL.NEB INHALE (20:27)
[2021-05-23 20:28] VITALS: PULSE 73; RESP 24; O2SAT 100
--- NOTE | 2021-05-23 20:30 | PC.NURSE ---
PT AMB TO BATHROOM WITH SLOW STEADY GAIT.
--- NOTE | 2021-05-23 21:36 | ED.FEMALEGU ---
HPI - Female Genitourinary General Chief complaint: Urogenital-Female Stated complaint: flank pain Time Seen by Provider: 05/23/21 19:58 Source: patient Mode of arrival: ambulatory Limitations: no limitations History of Present Illness HPI Narrative: 65 yold female presents to the ED left sided back pain radiating down left leg. patient also states dysuria. patient denies any abdominal pain, nausea, emesis, fever, or chills. Patient states pmh of kidney stones. Patient history of asthma, COPD, and chronic back pain and is on chronic narcotic. Patient denies any recent trauma or any urinary/bowel incontinence. Patient states no fever, chills, or flank pain. Patient states no hematuria Related Data Home Medications Medication Instructions Recorded Confirmed dicyclomine 10 mg capsule 10 mg PO TID PRN 02/17/20 12/20/20 fluoxetine 40 mg capsule 40 mg PO QAM 02/17/20 12/21/20 oxycodone-acetaminophen 7.5 mg-325 1 tab PO TID PRN 02/17/20 12/21/20 mg tablet tiotropium bromide 2.5 2 puff INHALATION DAILY 02/17/20 12/20/20 mcg/actuation mist for inhalation (Spiriva Respimat) alprazolam 0.5 mg tablet 2 tab PO QPM 09/16/20 12/21/20 gabapentin 100 mg capsule 100 mg PO TID 10/19/20 12/21/20 insulin lispro 100 unit/mL See Rx Instructions .ROUTE .COMPLEX 10/19/20 12/21/20 subcutaneous pen (Humalog KwikPen (U-100) Insulin) sennosides 8.6 mg tablet (senna) 8.6 mg PO BID PRN 10/19/20 12/20/20 acetaminophen 650 mg 1 tab PO Q8H PRN 12/21/20 12/21/20 tablet,extended release (Mapap Arthritis Pain) alprazolam 0.5 mg tablet 1 tab PO QAM PRN 12/21/20 12/21/20 budesonide 180 mcg/actuation 2 inh PO BID 12/21/20 12/21/20 breath activated powder inhaler (Pulmicort Flexhaler) ibuprofen 400 mg tablet 1 tab PO Q4H PRN 12/21/20 12/21/20 ondansetron HCl 4 mg tablet 4 mg PO Q8H PRN 12/21/20 12/21/20 Previous Rx's Medication Instructions Recorded fentanyl 25 mcg/hr transdermal 1 patch TRANSDERMAL Q72H #5 ea 09/17/20 patch naloxone 4 mg/actuation nasal 4 mg INTRANASAL Q3M PRN #2 ea 09/17/20 spray (Narcan) ketorolac 10 mg tablet 10 mg PO QID PRN 5 Days #20 tab 04/25/21 lidocaine 4 % topical patch 1 patch TOPICAL DAILY PRN #10 ea 04/25/21 prednisone 20 mg tablet 60 mg PO DAILY 5 Days #15 tab 04/25/21 albuterol sulfate 90 mcg/actuation 2 puff INHALATION Q4-6H PRN #6.7 g 05/24/21 aerosol inhaler lidocaine 4 % topical patch 1 patch TOPICAL DAILY PRN #10 ea 05/24/21 prednisone 20 mg tablet 60 mg PO DAILY 5 Days #15 tab 05/24/21 Allergies Allergy/AdvReac Type Severity Reaction Status Date / Time aspirin [Aspirin] Allergy Intermediate STOMACH Verified 05/23/21 18:37 UPSET Iodinated Contrast Media Allergy Intermediate ITCHING Verified 05/23/21 18:37 [IV Dye, Iodine Containing Contrast ] shellfish derived Allergy Intermediate Itching Verified 05/23/21 18:37 [SHELLFISH DERIVED] Sulfa (Sulfonamide Allergy Vomiting Verified 05/23/21 18:37 Antibiotics) SEAFOOD Allergy Unknown UNKNOWN Uncoded 01/16/20 16:22 Review of Systems Review of Systems: back pain radiating down left leg Yes all other systems are reviewed and are negative PMFSH Past Medical History Medical History Acute arthritis Asthma Chronic back pain Diabetes Hx of intestinal obstruction Surgical History Hx of cholecystectomy Hx of hysterectomy Social History Social History (Updated 11/20/20 @ 00:29 by Yoli Crespo DO) Alcohol intake: never Patient Tobacco Use Status: Never used Tobacco Advance Directives: Yes Advance Directives on File: Yes Advance Directives Date on File: 11/20/20 Physical Exam Vital Signs: Vital Signs: Last Vital Signs Temp 98.6 F 05/23/21 18:32 Pulse 82 05/24/21 00:02 Resp 17 05/24/21 00:02 BP 127/59 L 05/24/21 00:02 Pulse Ox 97 05/24/21 00:02 BMI result Body Mass Index 30.1 Const: General: cooperative, healthy appearing, comfortable, no acute distress, well developed, alert and awake Orientation/consciousness: patient oriented x3 HENMT: Head: Yes normal to inspection, Yes No palpable skull fracture present, Yes normocephalic and Yes atraumatic Eyes: General: appearance normal, both eyes and all related structures Neck: Neck: Yes normal visual inspection, Yes full ROM, Yes no lymphadenopathy, Yes no meningeal signs, Yes trachea midline, Yes supple, No anterior neck swelling and No tender Chest: Chest palpation & inspection: normal inspection of the chest and normal palpation of entire chest wall Resp: Effort & Inspection: normal respiratory effort and able to speak in complete sentences Auscultation: wheezes (mild) expiratory wheezes Cardio: Jugular venous distension: no JVD Heart sounds: S1 normal heart sound present and S2 normal heart sound present GI: Inspection: Yes normal to inspection and No abdominal wall ecchymosis Palpation (GI): Soft to palpation, not firm, nontender, no guarding and not rigid : General: No CVA tenderness and Yes no CVA tenderness Back/Spine/Pelvis: Back: no CVA tenderness, No CVA tenderness and back tenderness (lumbar spine. ) Skin: General skin exam: no rashes or lesions noted and elasticity normal Neuro: General: patient oriented x3, gait normal, no meningeal signs and CN's II-XI intact bilaterally Cranial nerves: Yes CN's II-XII intact bilaterally Extrem: Other: Lower extremities negative for swelling, pitting edema, or calf tenderness General: Yes normal to inspection and Yes full ROM Psych: Appearance: grossly normal, well kempt and not disheveled Course Course Course Narrative: Symptoms most likely but due to patient stating dysuria will do UA, labs, and CT scan to make sure there is no kidney stone. Patient started coughing during ED visit and states she has been coughing for the past 3 days. With slight lung wheezing will order albuterol and prednisone. COVID swab ordered. Also do a chest CT to look for pneumonia. Denies having any chest pain or shortness of breath. Reevaluation(s) Reevaluation #1: Patient's COVID swab negative. Chest CT negative pneumonia and just shows emphysematous changes. Abdominal CT scan negative for any acute abdominal etiology. Negative kidney stones. CT scan shows thoracic lumbar spondylosis. Patient given Percocet, lidocaine patch, Toradol, and steroids. Patient also given albuterol nebulizer for slight wheezing. Patient will be discharged with lidocaine and steroid with albuterol inhaler. Patient already have narcotic Percocet prescription for month. Not suspect epidural abscess or cord compression. Not suspecting PE or PA. patient denies any chest pain or shortness of breath. Time: 00:59 MDM - Female Genitourinary MDM Narrative Medical decision making narrative: Asthma, Thoraic/lumbar spondylosis. Lab Data Result diagrams: 05/23/21 19:35 05/23/21 19:35 Labs: Lab Results 05/23/21 05/23/21 05/23/21 Range/Units 18:49 19:35 19:35 WBC 13.8 H (4.8-10.8) X10*3/uL RBC 4.85 (4.20-5.50) X10*6/uL Hgb 13.8 (12.0-16.0) g/dl Hct 41.4 (37.0-47.0) % MCV 85.4 (80.0-98.0) fL MCH 28.5 (27.0-33.0) pg MCHC 33.3 (31.0-35.0) g/dl RDW 15.3 (11.0-16.0) % Plt Count 258 (160-400) X10*3/uL MPV 10.1 (9.4-12.3) fL Immature Gran % (Auto) 0.3 (0.0-0.4) % Neut % (Auto) 70.6 (45-73) % Lymph % (Auto) 22.9 (20-40) % Crawford % (Auto) 5.5 (2-11) % Eos % (Auto) 0.1 (0-4) % Baso % (Auto) 0.6 (0-2) % Lymph # (Auto) 3.2 (1.2-4.9) X10*3/uL Crawford # (Auto) 0.8 (0.1-1.2) X10*3/uL Eos # (Auto) 0.0 (0.0-0.4) X10*3/uL Baso # (Auto) 0.1 (0.0-0.2) X10*3/uL Abs Immat Gran (auto) 0.04 H (0.00-0.03) X10*3/uL Absolute Neuts (auto) 9.8 H (2.0-8.3) x10*3/uL Absolute Nucleated RBC 0.000 (0.0-0.012) X10*3/uL Nucleated RBC % (auto) 0.0 (0.0-0.2) /100WBC Sodium 142 (135-145) mmol/L Potassium 3.5 (3.3-5.1) mmol/L Chloride 109 H (96-108) mmol/L Carbon Dioxide 24 (22-29) mmol/L Anion Gap 13 (12-20) BUN 11 (9-16) mg/dL Creatinine 0.80 (0.5-1.4) mg/dL Estim Creat Clear Calc 58.6 Estimated GFR > 60 Random Glucose 114 (60-115) mg/dL Calcium 9.6 (8.4-10.2) mg/dL Total Bilirubin 0.7 (0.0-1.0) mg/dL AST 13 (5-31) U/L ALT 8 (0-31) U/L Alkaline Phosphatase 91 (39-117) U/L Total Protein 7.0 (6.5-8.0) g/dL Albumin 4.2 (3.5-5.0) g/dL Lipase 15 (8-78) U/L Urine Color YELLOW Urine Appearance CLEAR Urine pH 6.0 (5.0-8.0) Ur Specific Porter 1.025 (1.005-1.025) Urine Protein NEG (NEG-TRACE) MG/DL Urine Glucose (UA) NEG (NEG) MG/DL Urine Ketones NEG (NEG) MG/DL Urine Blood NEG (NEG) Urine Nitrite NEG (NEG) Ur Leukocyte Esterase NEG (NEG) COVID-19 (PAIGE) (Negative) COVID-19 Clin Com 05/23/21 Range/Units 20:02 WBC (4.8-10.8) X10*3/uL RBC (4.20-5.50) X10*6/uL Hgb (12.0-16.0) g/dl Hct (37.0-47.0) % MCV (80.0-98.0) fL MCH (27.0-33.0) pg MCHC (31.0-35.0) g/dl RDW (11.0-16.0) % Plt Count (160-400) X10*3/uL MPV (9.4-12.3) fL Immature Gran % (Auto) (0.0-0.4) % Neut % (Auto) (45-73) % Lymph % (Auto) (20-40) % Crawford % (Auto) (2-11) % Eos % (Auto) (0-4) % Baso % (Auto) (0-2) % Lymph # (Auto) (1.2-4.9) X10*3/uL Crawford # (Auto) (0.1-1.2) X10*3/uL Eos # (Auto) (0.0-0.4) X10*3/uL Baso # (Auto) (0.0-0.2) X10*3/uL Abs Immat Gran (auto) (0.00-0.03) X10*3/uL Absolute Neuts (auto) (2.0-8.3) x10*3/uL Absolute Nucleated RBC (0.0-0.012) X10*3/uL Nucleated RBC % (auto) (0.0-0.2) /100WBC Sodium (135-145) mmol/L Potassium (3.3-5.1) mmol/L Chloride (96-108) mmol/L Carbon Dioxide (22-29) mmol/L Anion Gap (12-20) BUN (9-16) mg/dL Creatinine (0.5-1.4) mg/dL Estim Creat Clear Calc Estimated GFR Random Glucose (60-115) mg/dL Calcium (8.4-10.2) mg/dL Total Bilirubin (0.0-1.0) mg/dL AST (5-31) U/L ALT (0-31) U/L Alkaline Phosphatase (39-117) U/L Total Protein (6.5-8.0) g/dL Albumin (3.5-5.0) g/dL Lipase (8-78) U/L Urine Color Urine Appearance Urine pH (5.0-8.0) Ur Specific Porter (1.005-1.025) Urine Protein (NEG-TRACE) MG/DL Urine Glucose (UA) (NEG) MG/DL Urine Ketones (NEG) MG/DL Urine Blood (NEG) Urine Nitrite (NEG) Ur Leukocyte Esterase (NEG) COVID-19 (PAIGE) Negative (Negative) COVID-19 Clin Com See Note Discharge Plan Discharge Clinical Impression: Left lumbar radiculopathy, Asthma Patient Disposition: Home, Self-Care Instructions: Asthma (ED), Lumbar Radiculopathy (ED) Additional Instructions: Sanchez tomograf?a computarizada no muestra lev?n c?lculo renal. La tomograf?a computarizada You-re muestra artritis lumbar/tor?cica. La orina sali? negativa para infecci?n. La tomograf?a computarizada del t?rax muestra asma. Contin?e tomando oxicodona para sanchez m?dico, quien lo admitir?. Milana con esteroides y parche de lidoca?na. Regrese al servicio de urgencias de inmediato si tiene n?useas, v?mitos, empeoramiento del dolor de espalda, incontinencia urinaria o intestinal, fiebre, escalofr?os, dolor de pecho, dificultad para respirar, debilidad, mareos, disuria, hematuria, dolor en el costado o cualquier otro s?ntoma preocupante. Por favor, munira un seguimiento con el proveedor de atenci?n primaria Prescriptions: New albuterol sulfate 90 mcg/actuation HFA aerosol inhaler 2 puff inhalation Q4-6H PRN (Reason: shortness of breath or wheezing) Qty: 6.7 RF: 0 lidocaine 4 % adhesive patch,medicated 1 patch topical DAILY PRN (Reason: pain) Qty: 10 RF: 0 prednisone 20 mg tablet 60 mg PO DAILY 5 Days Qty: 15 RF: 0 No Action fluoxetine 40 mg capsule 40 mg PO QAM RF: 0 oxycodone-acetaminophen 7.5-325 mg tablet 1 tab PO TID PRN (Reason: Pain) RF: 0 dicyclomine 10 mg capsule 10 mg PO TID PRN (Reason: Abdominal Pain) RF: 0 Spiriva Respimat 2.5 mcg/actuation mist 2 puff inhalation DAILY RF: 0 alprazolam 0.5 mg tablet 2 tab PO QPM RF: 0 fentanyl 25 mcg/hr patch 72 hour 1 patch transdermal Q72H Qty: 5 RF: 0 Narcan 4 mg/actuation spray,non-aerosol 4 mg intranasal Q3M PRN (Reason: opioid overdose) Qty: 2 RF: 0 gabapentin 100 mg capsule 100 mg PO TID RF: 0 insulin lispro [Humalog KwikPen Insulin] 100 unit/mL insulin pen See Rx Instructions .ROUTE .COMPLEX RF: 0 sennosides [senna] 8.6 mg Tablet 8.6 mg PO BID PRN (Reason: Constipation) RF: 0 ondansetron HCl 4 mg tablet 4 mg PO Q8H PRN (Reason: Nausea And Vomiting) RF: 0 ibuprofen 400 mg tablet 1 tab PO Q4H PRN (Reason: pain) RF: 0 acetaminophen [Mapap Arthritis Pain] 650 mg tablet extended release 1 tab PO Q8H PRN (Reason: pain) RF: 0 Pulmicort Flexhaler 180 mcg/actuation aerosol powdr breath activated 2 inh PO BID RF: 0 alprazolam 0.5 mg tablet 1 tab PO QAM PRN (Reason: Anxiety) RF: 0 lidocaine 4 % adhesive patch,medicated 1 patch topical DAILY PRN (Reason: pain) Qty: 10 RF: 0 prednisone 20 mg tablet 60 mg PO DAILY 5 Days Qty: 15 RF: 0 ketorolac 10 mg tablet 10 mg PO QID PRN (Reason: pain) 5 Days Qty: 20 RF: 0 Interventions: ED Discharge Assessment Last Done: 05/24/21 00:34 Discharge Date/Time: 05/24/21 00:36 Print Language: Belarusian
[2021-05-23] MEDS: Ketorolac Tromethamine 30 MG/ML VIAL IM (21:49)
[2021-05-23 21:53] VITALS: PULSE 85; RESP 17; O2SAT 96
[2021-05-23] MEDS: oxyCODONE HCl Immed Release 5 MG TABLET PO (23:32)
[2021-05-24] MEDS: Lidocaine 4 % Patch ADH..PATCH 1 PATCH TRANSDERMA
[2021-05-24 00:02] VITALS: BP 127/59; PULSE 82; RESP 17; O2SAT 97
== END 2021-05-24 00:36 | disposition home or self-care (01) ==
PROVIDERS: Physician Assistant; Emergency Provider Internal Medicine; PCP Internal Medicine
DX: M54.16 Radiculopathy, lumbar region (principal); J45.909 Unspecified asthma, uncomplicated; Z20.822 Contact with and (suspected) exposure to COVID-19; Z79.899 Other long term (current) drug therapy
CPT/HCPCS: 36415; 71250; 74176; 80053; 81003; 83690; 85025; 87635; 94640; 96372; 99284; J1885

== ENCOUNTER 2022-02-28 08:26 | Emergency (ER) | payer OTHER, SELFPAY ==
--- NOTE | ~2022-02-28 | XR_ITS ---
EXAMINATION: XR KUB CLINICAL INFORMATION: Reason for Exam abd discomfort, ?constipation COMPARISON: 2020 TECHNIQUE: Frontal FINDINGS: There is nonspecific bowel gas pattern, no radiographic evidence of obstruction, no free air under the diaphragm. There is no evidence of abnormal calcifications. Surgical clips right upper quadrant from prior cholecystectomy. There are no acute skeletal changes. XR/XR KUB IMPRESSION: Normal stool burden. No evidence of obstruction. Surgical clip right upper quadrant from prior cholecystectomy.
--- NOTE | ~2022-02-28 | CT_ITS ---
EXAMINATION: CT CERVICAL SPINE WITHOUT CONTRAST CLINICAL INFORMATION: History of fall. COMPARISON: None TECHNIQUE: Multidetector CT imaging examination of the cervical spine is performed. Axial images and multiplanar reformatted images are reviewed. This CT examination was performed using dose optimization techniques as appropriate, variously including the following: *Automated exposure control *Adjustment of mA and/or kV according to patient size (this includes techniques or standardized protocols for targeted exams where dose is matched to indication/reason for exam; i.e. extremities or head) *Use of iterative reconstruction technique DLP: 1349 mGy-cm (for CT exams of the head and cervical spine) FINDINGS: The skull base and craniocervical junction are normal. The cervical vertebra have normal height and alignment. No acute fracture, subluxation or prevertebral soft tissue swelling. Degenerative subarticular sclerosis and osseous spurring at the atlantodental articulation. Mild spondylosis with observation of multilevel vertebral osteophyte formation of the cervical spine. The disc spaces are generally well-preserved. The facet joints are intact. No significant stenosis of the spinal canal or neural foramina. No soft tissue hematoma in the neck. No acute findings in the visualized lung apices; no pneumothorax. Thyroid gland is unremarkable. CT/CT cervical spine wo IV con IMPRESSION: * Mild spondylosis of the cervical spine. * No acute findings. No fracture or malalignment.
--- NOTE | ~2022-02-28 | CT_ITS ---
CT head/brain wo IV con CLINICAL INFORMATION: FallReason for Exam Fall COMPARISON: Prior CT 10/19/2020 TECHNIQUE: Department standard protocol. This CT examination was performed using dose optimization techniques as appropriate, variously including the following: *Automated exposure control *Adjustment of mA and/or kV according to patient size (this includes techniques or standardized protocols for targeted exams where dose is matched to indication/reason for exam; i.e. extremities or head) *Use of iterative reconstruction technique DLP: 632 mGy-cm FINDINGS: CEREBRAL HEMISPHERES: There is no evidence of intra-axial or extra-axial mass, hemorrhage or acute infarct. BRAIN PARENCHYMA: Normal felipe-white matter differentiation. SUBDURAL SPACE: No bleed. BASAL GANGLIA AND PINEAL GLAND: Unremarkable VENTRICLES: Symmetric and normal in size. CEREBELLUM AND BRAINSTEM: No space-occupying mass, hemorrhage or acute infarct. CEREBELLOPONTINE ANGLES: No lesion found. ORBITS: No intraorbital mass. VESSELS: Unremarkable SKULL BASE: Unremarkable INCLUDED SINUSES AT SKULL BASE: Clear SKULL AND SKIN: No fracture or bone lesion found. CT/CT head/brain wo IV con IMPRESSION: No CT evidence of intracranial space-occupying mass, bleed or infarct.
[2022-02-28 08:53] VITALS: BP 140/78; PULSE 82; O2SAT 97
[2022-02-28 09:27] VITALS: BP 154/83; PULSE 72; RESP 16; TEMP 36.9; O2SAT 95; BMI 32.5
--- NOTE | 2022-02-28 09:33 | ED_ITS ---
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 She denies taking any medication at home. Otherwise, she denies any fever, chills, shortness of breath, chest pain/palpitations. Related Data Home Medications Medication Instructions Recorded Confirmed dicyclomine 10 mg capsule 10 mg PO TID PRN Abdominal Pain 02/17/20 12/20/20 fluoxetine 40 mg capsule 40 mg PO QAM 02/17/20 12/21/20 oxycodone-acetaminophen 7.5 mg-325 1 tab PO TID PRN Pain 02/17/20 12/21/20 mg tablet tiotropium bromide 2.5 2 puff inhalation DAILY 02/17/20 12/20/20 mcg/actuation mist for inhalation (Spiriva Respimat) alprazolam 0.5 mg tablet 2 tab PO QPM 09/16/20 12/21/20 gabapentin 100 mg capsule 100 mg PO TID 10/19/20 12/21/20 insulin lispro 100 unit/mL See Rx Instructions .Route .COMPLEX 10/19/20 12/21/20 subcutaneous pen (Humalog KwikPen (U-100) Insulin) sennosides 8.6 mg tablet (senna) 8.6 mg PO BID PRN Constipation 10/19/20 12/20/20 acetaminophen 650 mg 1 tab PO Q8H PRN pain 12/21/20 12/21/20 tablet,extended release (Mapap Arthritis Pain) alprazolam 0.5 mg tablet 1 tab PO QAM PRN Anxiety 12/21/20 12/21/20 budesonide 180 mcg/actuation 2 inh PO BID 12/21/20 12/21/20 breath activated powder inhaler (Pulmicort Flexhaler) ibuprofen 400 mg tablet 1 tab PO Q4H PRN pain 12/21/20 12/21/20 ondansetron HCl 4 mg tablet 4 mg PO Q8H PRN Nausea And Vomiting 12/21/20 12/21/20 Previous Rx's Medication Instructions Recorded fentanyl 25 mcg/hr transdermal 1 patch transdermal Q72H pain #5 ea 09/17/20 patch naloxone 4 mg/actuation nasal 4 mg intranasal Q3M PRN opioid 09/17/20 spray (Narcan) overdose #2 ea ketorolac 10 mg tablet 10 mg PO QID PRN pain 5 days #20 04/25/21 tabs lidocaine 4 % topical patch 1 patch topical DAILY PRN pain #10 04/25/21 ea prednisone 20 mg tablet 60 mg PO DAILY 5 days #15 tabs 04/25/21 albuterol sulfate 90 mcg/actuation 2 puff inhalation Q4-6H PRN 05/24/21 aerosol inhaler shortness of breath or wheezing #6.7 grams lidocaine 4 % topical patch 1 patch topical DAILY PRN pain #10 05/24/21 ea prednisone 20 mg tablet 60 mg PO DAILY 5 days #15 tabs 05/24/21 Allergies Allergy/AdvReac Type Severity Reaction Status Date / Time aspirin [Aspirin] Allergy Intermediate STOMACH Verified 05/23/21 18:37 UPSET Iodinated Contrast Media Allergy Intermediate ITCHING Verified 05/23/21 18:37 [IV Dye, Iodine Containing Contrast ] shellfish derived Allergy Intermediate Itching Verified 05/23/21 18:37 [SHELLFISH DERIVED] Sulfa (Sulfonamide Allergy Vomiting Verified 05/23/21 18:37 Antibiotics) SEAFOOD Allergy Unknown UNKNOWN Uncoded 01/16/20 16:22 Review of Systems Review of Systems: Pertinent positives and negatives as stated in HPI 10 point review of systems is otherwise negative. [facility] Past Medical History Source: nursing notes reviewed Medical History Acute arthritis Asthma Chronic back pain Diabetes Hx of intestinal obstruction Surgical History Hx of cholecystectomy Hx of hysterectomy Social History Social History Alcohol intake: never Patient Tobacco Use Status: Never used Tobacco Advance Directives: Yes Advance Directives on File: Yes Advance Directives Date on File: 11/20/20 Physical Exam Vital Signs: Vital Signs: Last Vital Signs Temp 98.2 F 02/28/22 10:28 Pulse 74 02/28/22 10:28 Resp 13 02/28/22 10:28 BP 116/78 02/28/22 10:28 Pulse Ox 95 02/28/22 10:28 O2 Del Method 02/28/22 10:28 BMI result Body Mass Index 32.5 VITAL SIGNS: Reviewed. GENERAL: Well developed, well nourished, in no acute distress. HEAD: Normocephalic/atraumatic EYES: PERRLA, EOMI EARS: Ext canals without abnormality OROPHARYNX: no oral lesions noted, posterior pharynx clear and non-erythematous without noted tonsillar enlargement/erythema/exudates NECK: C-collar in place without midline cervical spine tenderness on palpation LUNGS: Normal breath sounds. No adventitious sounds or accessory muscle use. SpO2<95> CARDIOVASCULAR: Regular rate and rhythm without noted murmurs, no JVD or lower extremity edema. ABDOMEN: Soft, non-tender, non-distended with bowel sounds. MUSCULOSKELETAL: No tenderness, deformities, or effusions noted on gross inspection. EXTREMITIES: No cyanosis, clubbing or edema. SKIN: Inspection of the skin reveals no rashes NEUROLOGIC: Alert and oriented x 4. Strength and sensation to light touch were grossly intact x 4. Course Course Course Narrative: 66-year-old female with history and clinical presentation consistent with minor fall from the couch with head strike, currently not on blood thinners, denies any LOC with body aches afterwards. On review of patient's documentation she suffers from chronic back, body pain. There are no other noted deformities/abrasions/lacerations/contusions and pelvis is stable and nontender. 1152: C-collar removed after review CT scan negative for any acute cervical or intracranial pathologies. Review of all investigations negative for acute findings. Patient received Tylenol for pain relief and is otherwise discharged home in stable condition. MDM - Fall Lab Data Labs: Lab Results 02/28/22 02/28/22 02/28/22 Range/Units 11:03 11:03 13:23 Urine Color Yellow Urine Appearance Hazy Urine pH 5.5 (5.0-9.0) Ur Specific Maxwell >= 1.030 H (1.005-1.025) Urine Protein Trace (Neg-Trace) mg/dL Urine Glucose (UA) Negative (Negative) mg/dL Urine Ketones Negative (Negative) mg/dL Urine Blood Negative (Negative) Urine Nitrite Negative (Negative) Ur Leukocyte Esterase Negative (Negative) COVID-19 (PAIGE) Negative (Negative) COVID-19 Clin Com See Note Influenza Type A (JHON) Negative (Negative) Influenza Type B (JHON) Negative (Negative) Influenza A & B Note See Note Discharge Plan Discharge Clinical Impression: Fall, Body aches Patient Disposition: Home, Self-Care Instructions: Fall Prevention for Older Adults (ED) Additional Instructions: 1. Reanudar todos los medicamentos caseros seg?n lo prescrito. 2. Tylenol 1000 mg, por v?a oral, cada 6 horas seg?n sea necesario para controlar el dolor. No exceda los 4000 mg dentro de las 24 horas. 3. Realice un seguimiento con chavez proveedor de atenci?n primaria llamando al consultorio hoy y programando robin karla para robin reevaluaci?n adicional del manejo ambulatorio. Regrese a la sofi de emergencias si los s?ntomas empeoran. Prescriptions: No Action fluoxetine 40 mg capsule 40 mg PO QAM oxycodone-acetaminophen 7.5-325 mg tablet 1 tab PO TID PRN (Reason: Pain) dicyclomine 10 mg capsule 10 mg PO TID PRN (Reason: Abdominal Pain) Spiriva Respimat 2.5 mcg/actuation mist 2 puff inhalation DAILY alprazolam 0.5 mg tablet 2 tab PO QPM fentanyl 25 mcg/hr patch 72 hour 1 patch transdermal Q72H Qty: 5 0RF Label Comments: LAST APPLICATION WAS 10/19/20 Narcan 4 mg/actuation spray,non-aerosol 4 mg intranasal Q3M PRN (Reason: opioid overdose) Qty: 2 0RF Rx Instructions: spray 1 dose into ONE nostril; alternate nostrils w each dose until help arrives gabapentin 100 mg capsule 100 mg PO TID insulin lispro [Humalog KwikPen Insulin] 100 unit/mL insulin pen See Rx Instructions .ROUTE .COMPLEX Label Comments: Pt does not know her dose Rx Instructions: 2-8 UNITS TID PER SLIDING SCALE sennosides [senna] 8.6 mg Tablet 8.6 mg PO BID PRN (Reason: Constipation) ondansetron HCl 4 mg tablet 4 mg PO Q8H PRN (Reason: Nausea And Vomiting) ibuprofen 400 mg tablet 1 tab PO Q4H PRN (Reason: pain) acetaminophen [Mapap Arthritis Pain] 650 mg tablet extended release 1 tab PO Q8H PRN (Reason: pain) Pulmicort Flexhaler 180 mcg/actuation aerosol powdr breath activated 2 inh PO BID alprazolam 0.5 mg tablet 1 tab PO QAM PRN (Reason: Anxiety) albuterol sulfate 90 mcg/actuation HFA aerosol inhaler 2 puff inhalation Q4-6H PRN (Reason: shortness of breath or wheezing) Qty: 6.7 0RF lidocaine 4 % adhesive patch,medicated 1 patch topical DAILY PRN (Reason: pain) Qty: 10 0RF prednisone 20 mg tablet 60 mg PO DAILY 5 Days Qty: 15 0RF lidocaine 4 % adhesive patch,medicated 1 patch topical DAILY PRN (Reason: pain) Qty: 10 0RF prednisone 20 mg tablet 60 mg PO DAILY 5 Days Qty: 15 0RF ketorolac 10 mg tablet 10 mg PO QID PRN (Reason: pain) 5 Days Qty: 20 0RF Rx Instructions: Patient received IM toradol 30mg in the ED. Print Language: Estonian
[2022-02-28 10:28] VITALS: BP 116/78; PULSE 74; RESP 13; TEMP 36.8; O2SAT 95
--- OUTSIDE RECORDS SUMMARY | 2022-02-28 10:28 | XMS_ITS ---
:1955 Author Organization [facility] Address [address] [place] [id number] Care Team Providers Name Role Phone Kaitlynn Acosta Unavailable Unavailable PROBLEMS Unknown Problems ALLERGIES No Information ENCOUNTERS Encounter Location Date Diagnosis XX NO [facility] [address] Jun, 2020 Anxie ty disorder, [address] [place], [place] [id number] unspe cified F41.9 ; Stress F43.9 ; Counseli ng, unspecified Z71. 9 and Dependent relati ve needing care at home Z63 .6 IMMUNIZATIONS No Known Immunizations SOCIAL HISTORY Never Assessed REASON FOR REFERRAL FUNCTIONAL STATUS PLAN OF CARE VITAL SIGNS MEDICATIONS Unknown Medications PROCEDURES Procedure Date Ordered Result Body Site TELEPHONE EVALUATION PHYS 21-30 MIN July 21, 2020 CERNIMIENTOS July 21, 2020 PSYCH DIAGNOSTIC EVALUATION July 21, 2020 RESULTS No Results REASON FOR VISIT Insurance Providers [facility] Health Member Patient Patient Patient Patient Patient Subscriber Subscriber Subscriber Group Insurance Plan Plan Plan Plan ID Relationship Address Phone Name Date of ID Name Date of No Type Insurance Insurance Insurance Coverage to Subscriber Address Phone Name Dates TRIPLE S [id number] TRIPLE S self KEITH [id number] [address] [id number] [place] [address] [place] [id number]
--- OUTSIDE RECORDS SUMMARY | 2022-02-28 10:28 | XMS_ITS ---
:1955 Author Care Team Providers Name Role Phone BOLA YOUSIF MD Primary Care Provider [phone] [facility] 1ST FLOOR OTHER [phone] Allergies Code Code System Name Reaction Severity Status Onset 1191 RxNorm Aspirin ? ? Active ? Iodinated Contrast Media ? ? Activ e ? Shellfish Derived ? ? Active ? Notes: SEAFOOD Medications Notes: Med list reviewed, see MAR for complete list Problems Name Status Onset Date Source ? Diabetes Mellitus Active 03/10/2018 ? Generalized Anxiety Disorder Active 03/10/2018 ? Asthma Active 03/10/2018 ? Gastroesophageal Reflux Disease without Esophagitis Active 03/10/2018 ? Infection AND/OR Inflammatory Reaction Due to Internal Active 03/10/2018 ? Prosthetic Device, Implant AND/OR Graft Sepsis Active 03/12/2018 ? Tobacco User Active 03/12/2018 ? Chronic Low Back Pain Active 05/13/2019 ? Recurrent Falls Active 05/13/2019 ? Gastroenteritis Active 09/18/2020 ? Acute Urinary Tract Infection Active 09/21/2020 ? Constipation Active 10/25/2020 ? Irritable Bowel Syndrome Active 10/25/2020 ? Chronic Obstructive Lung Disease Active 11/21/2020 ? Nausea Active 11/21/2020 ? Family Tension Active 11/26/2020 ? Procedures Date Name Performed by ? ? Hysterectomy Information not avai lable ? Cholecystectomy Information not avai lable Results Lab Results None recorded. Past Encounters 12/04/2020 Chronic Low Back Pain; Asthma; Chronic O bstructive Lung Disease; Constipation; Diabetes Mellitus; Family Tension; Gastroenteritis; Gastroesophageal Reflux Disease without Esophagitis; Generalized Anxiet y Disorder; Irritable Bowel Syndrome; Re current Falls; Tobacco User Constance Roy DISPLAY MAKER: [address] [facility] , [place] [address], Ph. 11/30/2020 Chronic Low Back Pain; Gastroesophageal Reflux Disease without Esophagitis Constance Roy DISPLAY MAKER: [address] [facility] , [place] [address], Ph. 11/26/2020 Chronic Low Back Pain; Chronic Obstructi ve Lung Disease; Constipation; Diabetes Mellitus; Generalized Anxiety Disorder; Irritable Bowel Syndrome; Gastroesophageal Reflux Disease without Esophagitis; Tob acco User; Nausea; Recurrent Falls; Fami ly Tension Farrah Onofre MD: [address] [place] [address], Ph. 11/23/2020 Chronic Low Back Pain; Asthma; Chronic O bstructive Lung Disease; Constipation; Diabetes Mellitus; Gastroenteritis; Gastroesophageal Reflux Disease without Esophagitis; Generalized Anxiety Disorder; Irritable Bowel Syndrome; Recurrent Falls Constance Roy DISPLAY MAKER: [address] [place] [address], Ph. 11/21/2020 Chronic Low Back Pain; Generalized Anxie ty Disorder; Chronic Obstructive Lung Disease; Diabetes Mellitus; Gastroenteritis; Constipation; Nausea GILMA Ashby: [address] [place] [address], Ph. 10/26/2020 Chronic Low Back Pain; Generalized Anxie ty Disorder; Asthma; Constipation; Diabetes Mellitus; Gastroenteritis; Gastroesophageal Reflux Disease without Esophagitis; Irritable Bowel Syndrome; Tobacco User; Recurrent Falls Constance Roy DISPLAY MAKER: [address] [place] [address], Ph. 10/22/2020 Chronic Low Back Pain; Asthma; Constipat ion; Diabetes Mellitus; Generalized Anxiety Disorder; Irritable Bowel Syndrome; Gastroesophageal Reflux Disease without Esophagitis; Tobacco User Farrah Onofre MD: [address] [place] [address], Ph. 10/20/2020 Chronic Low Back Pain; Diabetes Mellitus ; Asthma; Gastroenteritis; Gastroesophageal Reflux Disease without Esophagitis; Generalized Anxiety Disorder; Tobacco User Constance Roy DISPLAY MAKER: [address] [place] [address], Ph. 09/30/2020 Chronic Low Back Pain; Generalized Anxie ty Disorder; Acute Urinary Tract Infection; Asthma; Diabetes Mellitus; Gastroenteritis; Gastroesophageal Reflux Disease without Esophagitis; Recurrent Falls; Tobacco User Constance Roy DISPLAY MAKER: [address] [facility] , [place] [address], Ph. 09/25/2020 Asthma; Chronic Low Back Pain Constance Roy DISPLAY MAKER: [address] [facility] , [place] [address], Ph. 09/22/2020 Gastroenteritis; Abdominal Pain; Acute U rinary Tract Infection; Chronic Low Back Pain; Asthma; Diabetes Mellitus; Generalized Anxiety Disorder Farrah Onofre MD: [address] [facility], [place] [address], Ph. 09/21/2020 Acute Urinary Tract Infection Constance Roy DISPLAY MAKER: [address] [facility] , [place] [address], Ph. 09/18/2020 Gastroenteritis; Chronic Low Back Pain; Asthma; Diabetes Mellitus; Generalized Anxiety Disorder; Recurrent Falls Constance Roy DISPLAY MAKER: [address] [facility] , [place] [address], Ph. Social History Tobacco Smoking Status Light Tobacco Smoker (1 Notes: says she smokes 4-5/day 4 pack per week) cigarettes/day Vaccine List Vaccine Type pneumococcal polysaccharide PPV23 02/28/2018 Plan of Care Reminders Provider Appointments None recorded. ? ? Lab None recorded. ? ? Referral None recorded. ? ? Procedures None recorded. ? ? Surgeries None recorded. ? ? Imaging None recorded. ? ? Vitals 12/04/2020 11:39AM Discharge Summary Height Blood Pressure 5 ft 105/65 mm[Hg] 11/30/2020 12:57PM Acute Rounding Visit Height Blood Pressure 5 ft 109/65 mm[Hg] 11/26/2020 01:19PM Admitting H&P Height Weight BMI Blood Pressure 5 ft 137 lbs 26.8 kg/m2 130/75 mm[Hg] 11/23/2020 10:29AM Acute Rounding Visit Height Blood Pressure 5 ft 128/79 mm[Hg] 11/21/2020 09:18AM Initial Intake Note Height Blood Pressure 5 ft 112/68 mm[Hg] 10/26/2020 07:57AM Discharge Summary Height Blood Pressure 5 ft 102/62 mm[Hg] 10/22/2020 05:09PM Admitting H&P Height Weight BMI Blood Pressure 5 ft 136.4 lbs 26.6 kg/m2 122/74 mm[Hg] 10/20/2020 01:35PM Initial Intake Note Height Blood Pressure 5 ft 101/69 mm[Hg] 09/30/2020 08:08AM Discharge Summary Height Weight BMI Blood Pressure 5 ft 137.8 lbs 26.9 kg/m2 118/72 mm[Hg] 09/25/2020 11:19AM Acute Rounding Visit Height Blood Pressure 5 ft 121/87 mm[Hg] 09/22/2020 02:46PM Admitting H&P Height Weight BMI Blood Pressure 5 ft 134.4 lbs 26.2 kg/m2 126/69 mm[Hg] 09/21/2020 02:23PM Acute Rounding Visit Height Blood Pressure 5 ft 130/70 mm[Hg] 09/18/2020 07:59AM Initial Intake Note Height Weight BMI Blood Pressure 5 ft 150.6 lbs 29.4 kg/m2 134/82 mm[Hg] 02/21/2020 08:51AM Discharge Summary Blood Pressure 122/68 mm[Hg] 02/19/2020 09:21AM Initial Intake Note Blood Pressure 131/73 mm[Hg] 05/13/2019 08:33AM Initial Intake Note Blood Pressure 113/71 mm[Hg] 03/12/2018 02:38PM Admitting H&P Blood Pressure 114/58 mm[Hg] 03/10/2018 01:57PM Initial Intake Note Blood Pressure 113/74 mm[Hg]
[2022-02-28] MEDS: Acetaminophen 325 MG TABLET 975 MG PO (11:10)
[2022-02-28 11:28] LABS: COVID-19 Test Negative (Negative); IDNOW Serial# 16C4AD1C; Influenza A Negative (Negative); Influenza B2 Negative (Negative)
[2022-02-28 13:35] LABS: Appearance Urine Hazy; Color Urine Yellow; Glucose Urine UA Negative (Negative); Leukocyte Esterase Urine Negative (Negative); Nitrite Urine Negative (Negative); PH 5.5 (5.0-9.0); Specific Gravity - Urine >= 1.030 (1.005-1.025); Urine Blood Negative (Negative); Urine Ketones Negative (Negative); Urine Protein Trace mg/dL (Neg-Trace)
[2022-02-28 14:07] VITALS: BP 145/53; PULSE 94; RESP 19; TEMP 37; O2SAT 96
== END 2022-02-28 15:39 | disposition home or self-care (01) ==
PROVIDERS: Emergency Provider Student in an Organized Health Care Education/Training Program
DX: R51.9 Headache, unspecified (principal); M54.2 Cervicalgia; R10.32 Left lower quadrant pain; M79.10 Myalgia, unspecified site; Z20.822 Contact with and (suspected) exposure to COVID-19; Z79.899 Other long term (current) drug therapy
CPT/HCPCS: 70450; 72125; 74018; 81003; 87502; 87635; 99284

== ENCOUNTER 2023-01-03 14:14 | Emergency (ER) | payer OTHER, SELFPAY ==
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
[2023-01-03 14:27] VITALS: BP 152/86; PULSE 90; O2SAT 95; BMI 32.2
[2023-01-03 14:31] VITALS: BP 136/88; PULSE 86; O2SAT 95
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
--- NOTE | 2023-01-03 14:40 | ECG_ITS ---
Test Reason : pain Blood Pressure : / mmHG Vent. Rate : 075 BPM Atrial Rate : 075 BPM P-R Int : 136 ms QRS Dur : 082 ms QT Int : 352 ms P-R-T Axes : 064 023 024 degrees QTc Int : 393 ms Normal sinus rhythm with sinus arrhythmia ST & T wave abnormality, consider lateral ischemia Abnormal ECG When compared with ECG of 20-NOV-2020 00:31, Nonspecific T wave abnormality, worse in Inferior leads T wave inversion now evident in Anterolateral leads Referred By: Renita Crespo Electronically Signed By:SHAINA CAMEJO
[2023-01-03] MEDS: Morphine Sulfate Immed Release 15 MG TABLET PO (14:53)
[2023-01-03] MEDS: Ondansetron ODT 4 MG TAB.RAPDIS TRANSLINGU (14:53)
--- NOTE | 2023-01-03 14:55 | PC.NURSE ---
patient medicated for pain per order
--- NOTE | 2023-01-03 15:19 | PC.NURSE ---
tech bedside performing ekg.
[2023-01-03 15:36] LABS: MANUAL DIFF FLAG NO
[2023-01-03 15:39] LABS: Basophils Absolute Auto 0.1 X10*3/uL (0.0-0.2); Basophils Percent Auto 0.5 % (0-2); Eosinophils Absolute Auto 0.1 X10*3/uL (0.0-0.4); Eosinophils Percent Auto 0.9 % (0-4); Hematocrit 43.8 % (37.0-47.0); Hemoglobin 13.8 g/dl (12.0-16.0); Imm Gran Abs Auto 0.07 X10*3/uL (0.00-0.03); Imm Gran Pct Auto 0.7 % (0.0-0.4); Lymphocytes Absolute Auto 1.8 X10*3/uL (1.2-4.9); Lymphocytes Percent Auto 18.7 % (20-40); Mean Corpuscular HGB Conc 31.5 g/dl (31.0-35.0); Mean Corpuscular Volume 85.7 fL (80.0-98.0); Mean Platelet Volume 10.5 fL (9.4-12.3); Monocytes Absolute Auto 0.6 X10*3/uL (0.1-1.2); Monocytes Percent Auto 6.4 % (2-11); Neutrophils Absolute Auto 6.8 x10*3/uL (2.0-8.3); Neutrophils Percent Auto 72.8 % (45-73); Platelet Count 246 X10*3/uL (160-400); Red Blood Count 5.11 X10*6/uL (4.20-5.50); Red Cell Distribution Width 14.4 % (11.0-16.0); White Blood Count 9.3 X10*3/uL (4.8-10.8)
[2023-01-03 15:57] LABS: Alanine Aminotransferase 20 U/L (0-31); Albumin Level 3.7 g/dL (3.5-5.0); Alkaline Phosphatase 100 U/L (39-117); Anion Gap 10 (12-20); Aspartate Amino Transferase 23 U/L (5-31); Bilirubin Direct 0.1 mg/dL (0.0-0.5); Bilirubin Total 0.5 mg/dL (0.0-1.0); Blood Urea Nitrogen 10 mg/dL (9-16); Carbon Dioxide 26 mmol/L (22-29); Chloride 108 mmol/L (96-108); Creatinine Clr Calc Pharmacy 70.3; Estimated Glomerular Filt Rate > 60; Glucose Random 151 mg/dL (60-115); Lipase 11 U/L (8-78); Magnesium 2.1 mg/dL (1.6-2.6); Potassium 4.1 mmol/L (3.3-5.1); Sodium 140 mmol/L (135-145); Total Protein 6.6 g/dL (6.5-8.0)
[2023-01-03 16:11] VITALS: BP 138/86; PULSE 82; RESP 18; TEMP 36.3; O2SAT 95
[2023-01-03 16:16] LABS: Troponin-I High Sensitivity < 2.7 ng/L (<3.5-17.0)
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
[2023-01-03 17:56] VITALS: BP 103/67; PULSE 75; RESP 18; TEMP 36.6; O2SAT 93
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
== END 2023-01-03 19:35 | disposition home or self-care (01) ==
PROVIDERS: Emergency Provider Emergency Medicine
DX: S13.4XXA Sprain of ligaments of cervical spine, initial encounter (principal); R07.89 Other chest pain; R51.9 Headache, unspecified; M54.2 Cervicalgia; M54.6 Pain in thoracic spine; R10.30 Lower abdominal pain, unspecified; V43.62XA Car passenger injured in collision with other type car in traffic accident, initial encounter; Y93.9 Activity, unspecified; Y92.410 Unspecified street and highway as the place of occurrence of the external cause; Y99.9 Unspecified external cause status; Z79.899 Other long term (current) drug therapy
CPT/HCPCS: 36415; 70450; 71250; 72125; 74176; 80048; 80076; 83690; 83735; 84484; 85025; 93005; 99284; 99285

== ENCOUNTER 2023-08-28 11:49 | Outpatient (REF) | payer OTHER, SELFPAY ==
--- NOTE | ~2023-08-28 | XR_ITS ---
EXAMINATION: XR CHEST CLINICAL INFORMATION: Chronic bronchitis. COMPARISON: CT chest dated 01/03/2023. TECHNIQUE: 2 views of the chest were obtained. FINDINGS: The lungs are clear. The cardiomediastinal silhouette is normal in size. There is no pleural effusion or pneumothorax. No acute osseous abnormality. Right upper quadrant surgical clips. XR/XR chest 2V IMPRESSION: No acute cardiopulmonary findings.
[2023-08-28 14:03] LABS: Alanine Aminotransferase 19 U/L (0-31); Alkaline Phosphatase 128 U/L (39-117); Anion Gap 12 (12-20); Aspartate Amino Transferase 22 U/L (5-31); Bilirubin Total 0.4 mg/dL (0.0-1.0); Blood Urea Nitrogen 9 mg/dL (9-16); Calcium 9.5 mg/dL (8.4-10.2); Carbon Dioxide 30 mmol/L (22-29); Chloride 103 mmol/L (96-108); Cholesterol 192 mg/dL (<200); Estimated Glomerular Filt Rate > 60; Glucose Random 104 mg/dL (60-115); HDL Cholesterol 45 mg/dL (>40); LDL Cholesterol Calculated 111 mg/dL (<100); Potassium 3.9 mmol/L (3.3-5.1); Sodium 141 mmol/L (135-145); Total Protein 7.3 g/dL (6.5-8.0); Triglycerides 184 mg/dL (<150)
[2023-08-28 14:09] LABS: TSH reflex Free T4 3.14 uIU/mL (0.32-4.0); Vitamin D 25-OH Total 17.3 ng/mL (>30)
[2023-08-28 17:48] LABS: Reflex LDLD? No
== END 2023-08-28 11:50 | disposition home or self-care (01) ==
LOC: HO.HHCL 11:49
PROVIDERS: Visit Provider Internal Medicine
DX: J41.0 Simple chronic bronchitis (principal); E08.40 Diabetes mellitus due to underlying condition with diabetic neuropathy, unspecified; Z79.4 Long term (current) use of insulin
CPT/HCPCS: 36415; 71046; 80053; 80061; 82043; 82306; 82570; 84443